=== PATIENT | female | born 2000 | race Caucasian/White ===

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

== ENCOUNTER → 2020-01-06 13:59 | Outpatient (CLI) | payer OTHER, SELFPAY ==
[2020-01-09 09:11] LABS: Neisseria gonorrhoeae, NAA Negative (Negative)
== END ==
PROVIDERS: Visit Provider Nurse Practitioner Obstetrics & Gynecology
DX: Z01.419 Encounter for gynecological examination (general) (routine) without abnormal findings (principal)
CPT/HCPCS: 87491; 87591

== ENCOUNTER → 2020-01-08 13:02 | Outpatient (CLI) | payer OTHER, SELFPAY ==
--- NOTE | 2020-01-08 13:13 | US_ITS ---
PROCEDURE: US TRANSVAGINAL CLINICAL INDICATION: Pelvic Pain COMPARISON: No exams were available for comparison FINDINGS: UTERUS: 6cm x 4cmx 3cm with a combined endometrial thickness of 3.8mm LEFT OVARY: [id number] with a volume of 5.2ml. RIGHT OVARY: [id number] with a volume of 6.2ml. No adnexal mass or abnormal fluid collection. The uterus is retroverted. There are small bilateral ovarian follicles with no dominant cyst IMPRESSION: Retroverted uterus otherwise negative pelvic ultrasound Dictated b Kendall Villegas MD 01/08/2020 16:11 Kendall Villegas MD in [place] 01/08/2020 16:11
== END ==
PROVIDERS: PCP Nurse Practitioner Family; Visit Provider Nurse Practitioner Obstetrics & Gynecology
DX: R10.2 Pelvic and perineal pain (principal)
CPT/HCPCS: 76830

== ENCOUNTER 2021-01-12 14:32 | Emergency (ER) | payer OTHER, SELFPAY ==
[2021-01-12 15:45] VITALS: BP 115/66; PULSE 72; RESP 18; TEMP 37.2; O2SAT 99; BMI 23.7
--- NOTE | 2021-01-12 15:54 | HMH.EDUTC ---
[facility] [place] Clinical Impression: Viral upper respiratory illness Disposition: Home, Self-Care Condition on Discharge: Good Instructions: DI for Viral Upper Respiratory Infection -- Adult, Fluticasone Nasal [address] Additional Instructions: *Monitor Temp, Over the counter Motrin or Tylenol as directed/as needed Tylenol every 4 hours and Motrin every 6 hours (as long as your family doctor has told you that you can take it) for fever or pain. and straight to ER if unable to lower temp less than 101.0 after medication given *Warm salt water gargles may help to soothe the throat *Throat Lozenges *Warm fluids like tea with honey may help to soothe the throat *Sleep elevated *Humidifier/Vaporizer *Flonase 2 sprays in each nostril daily but be aware that it may take 2-3 days before you notice improvement Follow up IMMEDIATELY for new or worsening symptoms or no Noticeable improvement over the next 48-72 hours. 911 for difficulty breathing or swallowing You were tested for today for COVID19 your test result should be back in the next 24-48 hours, you may call to the [facility] to see if your test results are back in the next 48 hours [phone] [facility] hours are 9am-9pm You was given a handout with instructions for Self Quarantine and Self isolation for while you wait on test results and what to do if they are positive If you are positive the Health Dept will be contacting you also Prescriptions: Fluticasone Propionate [Flonase 50mcg nasal spray 16gm] 1 spr NS DAILY #1 ml Transmission Status: Pending to [facility] Referrals: Deann Mayen [Primary Care Provider] - As needed Time of Disposition: 16:14 Medical Decision Making - Camilo Inquiry Pt receiving controlled substance: No Camilo was queried for this patient: No Vital Signs: 01/12/21 15:45 Temperature 99 F Temperature Source Oral Pulse Rate [Left] 72 Respiratory Rate 18 Blood Pressure [Right Arm] 115/66 Blood Pressure Mean [Right Arm] 82 02 Sat by Pulse Oximetry 99 - Lab Data Lab Results 01/12/21 15:51: Strep Scn Rapid Clinic Negative Orders (Tests/Meds): ORDERS Category Date Time Status Covid-19 Nasal PCR ([facility] Routine Lab 01/12/21 15:21 Ordered Strep Screen Confirmation Stat Micro 01/12/21 15:51 Received [facility] [place] - General Stated complaint: covid test Time Seen by Provider: 01/12/21 15:54 Mode of Arrival: Ambulatory Source of Information: Patient Limitations: No Limitations Description of Symptoms (Recalled from Triage Doc. by RN): pt c/o a sore throat and ear aches HEENT Symptoms (Recalled from RN notes): Yes (sore throat and ear aches) Resp Symptoms (Recalled from RN notes): No Skin Symptoms (Recalled from RN notes): No MS Symptoms (Recalled from RN notes): No Functional Status (Recalled from RN notes): na - History of Present Illness Provider Complaint: Patient states that she was recently around a family member that tested positive for COVID States that she has been having pain and pressure like feeling in her ears and sore throat States that she was worried she may have have it and wanted to get tested - Related Data Home Medications Medication Instructions Recorded Confirmed Albuterol Sulfate [Albuterol HFA 1 - 2 puffs IH Q4-6H PRN 01/11/18 01/06/20 Inhaler] Previous Rx's Medication Instructions Recorded Fluticasone Propionate [Flonase 1 spr NS DAILY #1 ml 01/12/21 50mcg nasal spray 16gm] Allergies Allergy/AdvReac Type Severity Reaction Status Date / Time cefuroxime [From CEFTIN] Allergy Unknown Verified 01/12/21 15:57 chlorpheniramine Allergy Unknown Verified 01/12/21 15:57 [From CARDEC (PHENYLEPHRIN-CHLORPHN)] erythromycin base Allergy Unknown Verified 01/12/21 15:57 [ERYTHROMYCIN BASE] guaifenesin [From Robitussin] Allergy Unknown Verified 01/12/21 15:57 phenylephrine Allergy Unknown Verified 01/12/21 15:57 [From CARDEC (PHENYLEPHRIN-CHLORPHN)] doxycyc
[2021-01-12 16:10] LABS: UTC Strep Screen (Rapid) Negative (Negative)
[2021-01-12 16:31] VITALS: BP 115/66; PULSE 72; RESP 18; TEMP 37.2
== END 2021-01-12 16:31 | disposition home or self-care (01) ==
PROVIDERS: Emergency Provider Nurse Practitioner; PCP Nurse Practitioner Family
DX: J06.9 Acute upper respiratory infection, unspecified (principal); K21.9 Gastro-esophageal reflux disease without esophagitis
CPT/HCPCS: 87880; 99203; G0463; U0003

== ENCOUNTER 2021-01-22 12:52 | Emergency (ER) | payer OTHER, SELFPAY ==
[2021-01-22 13:00] VITALS: BP 120/75; PULSE 92; RESP 19; TEMP 36.6; O2SAT 98; BMI 22.8
--- NOTE | 2021-01-22 13:47 | HMH.EDUTC ---
[facility] [place] Disposition Clinical Impression: Vomiting Qualifiers: Vomiting type: unspecified Vomiting Intractability: unspecified Nausea presence: without nausea Qualified Code(s): R11.11 - Vomiting without nausea Disposition: Home, Self-Care Condition on Discharge: Good Instructions: DI for Vomiting -- Adult, Nausea and Vomiting-Adult, Ondansetron Additional Instructions: Drink extra fluids with and between meals. If you have difficulty drinking, try very small amounts of water or suck on ice chips. ? Avoid fruit juices, as these do not replace minerals and can actually increase diarrhea. ? Children and adults can use sports drinks to replenish electrolytes. Younger children and infants should use products formulated for children, like oral rehydration solutions. ? Eat food in small amounts and let your stomach recover. ? Get lots of rest. You may feel tired or weak. ? No greasy or fried foods for the next 24-48 hours BRAT diet Bananas Rice Apples and [place] ? Make sure to drink plenty of liquids ? Return if needed ? Straight to ER if any life threatening symptoms ? Zofran as prescribed ? Follow up with family doctor in the next 48-72 hours if no improvement or any worsening of symptoms Prescriptions: Ondansetron [Zofran 4mg ODT] 4 mg PO TIDP PRN #20 tab PRN Reason: Nausea Transmission Status: Received by [facility] Referrals: Deann Mayen [Primary Care Provider] - As needed Time of Disposition: 14:10 Medical Decision Making - Camilo Inquiry Pt receiving controlled substance: No Camilo was queried for this patient: No Vital Signs: 01/22/21 13:00 01/22/21 14:00 Temperature 97.9 F 97.9 F Temperature Source Oral Pulse Rate 92 H Pulse Rate [Right Brachial] 92 H Respiratory Rate 19 19 Blood Pressure 120/75 Blood Pressure [Right Arm] 120/75 Blood Pressure Mean [Right Arm] 90 Blood Pressure Source [Right Arm] Automatic Cuff Blood Pressure Position [Right Arm] Sitting 02 Sat by Pulse Oximetry 98 Oxygen Delivery Method Room Air Orders (Tests/Meds): ED MEDICATIONS Discontinued Medications Generic Name Dose Route Start Last Admin Trade Name Freq PRN Reason Stop Dose Admin Ondansetron HCl 4 mg 01/22/21 13:47 01/22/21 13:49 Ondansetron 4mg Odt SL 01/22/21 13:48 4 mg ONCE ONE Administration Medical Decision Narrative: Patient denies states she is on her period at this time Recommended testing again for covid and patient declined After medication patient state that nausea is much better was able to keep down sprite without vomiting and no vomiting since arrival again discussed COVID test and patient declined recommended that patient stay in Quarantine at least 4-5 more days due to still having symptoms [facility] [place] HPI - General Stated complaint: vomitting body aches Time Seen by Provider: 01/22/21 13:47 Mode of Arrival: Ambulatory Source of Information: Patient Limitations: No Limitations Description of Symptoms (Recalled from Triage Doc. by RN): PATIENT C/O WEAKNESS, FATIGUE, VOMITING, BODY ACHES, FEVER, AND DECREASED APPETITE X 2 DAYS. RECENTLY EXPOSED TO COVID HEENT Symptoms (Recalled from RN notes): No Resp Symptoms (Recalled from RN notes): No Skin Symptoms (Recalled from RN notes): No MS Symptoms (Recalled from RN notes): No Functional Status (Recalled from RN notes): WNL - History of Present Illness Provider Complaint: Patient state that her boyfriend was dx with COVID about a week or two ago State that she was having symptoms then and was tested and it was negative State that she has been having vomiting and unable to keep anything down and thinks she may have a stomach bug State that she just recently got out of quarnatine - Related Data Home Medications Medication Instructions Recorded Confirmed Albuterol Sulfate [Albuterol HFA 1 - 2 puffs IH Q4-6H PRN 01/11/18 01/06/20 Inhaler] Previous Rx's Medication Instructions Recorded Fluticasone Pro
[2021-01-22 14:00] VITALS: BP 120/75; PULSE 92; RESP 19; TEMP 36.6; O2SAT 98
== END 2021-01-22 14:14 | disposition home or self-care (01) ==
PROVIDERS: Emergency Provider Nurse Practitioner; PCP Nurse Practitioner Family
DX: R11.11 Vomiting without nausea (principal); Z20.822 Contact with and (suspected) exposure to COVID-19; K21.9 Gastro-esophageal reflux disease without esophagitis
CPT/HCPCS: 99202; G0463

== ENCOUNTER 2021-05-01 13:11 | Emergency (ER) | payer OTHER, SELFPAY ==
[2021-05-01 13:45] VITALS: BP 137/88; PULSE 93; RESP 21; TEMP 36.5; O2SAT 98; BMI 23.6
--- NOTE | 2021-05-01 14:34 | HMH.EDUTC ---
[facility] [place] Disposition Clinical Impression: UTI (urinary tract infection) Qualifiers: Urinary tract infection type: site unspecified Hematuria presence: without hematuria Qualified Code(s): N39.0 - Urinary tract infection, site not specified Disposition: Home, Self-Care Condition on Discharge: Good Instructions: Nausea of (Alternative Therapy), Urinary Tract Infection, Hyperemesis Gravidarum, DI for Urinary Tract Infection (UTI), DI for Morning Sickness Additional Instructions: *Increase fluids. Water not Soda or Tea *Start antibiotic immediately and be sure to take as ordered for the FULL length of time although you should start to see improvement over the next 48 hours *Be SURE to follow up anytime for new or worsening symptoms with your family doctor. AND in 48 hours for urine culture results with your family doctor, if you do not have a doctor then you may call back to the [facility] for urine culture results and further treatment. We do recommend that you choose and establish care with a Primary Care Physician. AND follow up with them in 10-14 days to repeat UA to ensure infection is resolved and blood no longer present *Be sure to let your PCP know that we sent urine cultures from the [facility] so they can follow up to ensure that you area the on the correct antibiotic Call your doctor office and make appointment for 48 hours (2 days from today) to follow up and get the results of your urine culture and further treatment Follow up with OBGYN for further treatment and evaluation of vomiting Prescriptions: Amoxicillin/Potassium Clav [Augmentin 500mg tab] 1 tab PO BID 7 Days #14 tab Transmission Status: Sent to [facility] Promethazine HCl [Phenergan 12.5mg tablet] 12.5 mg PO Q6H PRN #10 tab PRN Reason: Vomiting Transmission Status: Sent to [facility] Referrals: Xiomara Fan APRN [Primary Care Provider] - As needed Time of Disposition: 15:02 Medical Decision Making - Camilo Inquiry Pt receiving controlled substance: No Camilo was queried for this patient: No Vital Signs: 05/01/21 13:45 Temperature 97.7 F Temperature Source Oral Pulse Rate [Right Brachial] 93 H Respiratory Rate 21 Blood Pressure [Right Arm] 137/88 Blood Pressure Mean [Right Arm] 104 Blood Pressure Source [Right Arm] Automatic Cuff Blood Pressure Position [Right Arm] Sitting 02 Sat by Pulse Oximetry 98 Oxygen Delivery Method Room Air - Lab Data Lab results reviewed: Yes: I reviewed the patient's lab results. Lab Results 05/01/21 14:05: Urine Color Yellow, Urine Appearance Clear, Urine pH 7.0, Ur Specific [place] 1.025, Urine Protein Negative, Urine Glucose (UA) Negative, Urine Ketones Negative, Urine Blood Trace, Urine Nitrate Negative, Urine Bilirubin Negative, Urine Urobilinogen 1, Ur Leukocyte Esterase Trace Orders (Tests/Meds): ORDERS Category Date Time Status Urine Culture Stat Micro 05/01/21 14:36 Ordered Medical Decision Narrative: Patient states that she is allergic to Cefuroxime but can take Augmentin without reaction or complications Medication discussed with pharmacy to make sure they are safe for use during [facility] [place] HPI - General Stated complaint: 6 weeks , vomiting/cramping Time Seen by Provider: 05/01/21 14:41 Mode of Arrival: Ambulatory Source of Information: Patient, Parent(s) Limitations: No Limitations Description of Symptoms (Recalled from Triage Doc. by RN): PATIENT REPORTS BEING 6 WEEKS WITH VOMITING AND CRAMPING X 1 WEEK. SHE STATES WHEN SHE VOMITS SHE LEAKS FLUID HEENT Symptoms (Recalled from RN notes): No Resp Symptoms (Recalled from RN notes): No Skin Symptoms (Recalled from RN notes): No MS Symptoms (Recalled from RN notes): No Functional Status (Recalled from RN notes): WNL - History of Present Illness Provider Complaint: Patient states that she is having achy like feeling in her lower back, a little burning with urination, N/V and when she vomits sometimes
[2021-05-01 14:35] LABS: Apearance,Urine Clear (Clear); Color,Urine Yellow (Yellow)
[2021-05-01 14:36] LABS: Bilirubin,Urine Negative (Negative); Blood, Urine Trace (Negative); Glucose,Urine (UA) Negative (Negative); Ketones,Urine Negative (Negative); Protein,Urine Negative (Negative); Specific Gravity, Urine 1.025 (1.005-1.030); UTC Leukocyte Esterase,Urine Trace (Negative); UTC Nitrate,Urine Negative (Negative); Urobilinogen,Urine 1 EU/dl (0.2)
[2021-05-01 15:04] VITALS: BP 137/88; PULSE 93; RESP 21; TEMP 36.5; O2SAT 98
== END 2021-05-01 15:07 | disposition home or self-care (01) ==
PROVIDERS: Emergency Provider Nurse Practitioner; PCP Nurse Practitioner
DX: O23.11 Infections of bladder in pregnancy, first trimester (principal); Z3A.01 Less than 8 weeks gestation of pregnancy; K21.9 Gastro-esophageal reflux disease without esophagitis
CPT/HCPCS: 81003; 87086; 99202; G0463

== ENCOUNTER → 2021-05-23 14:10 | Outpatient (CLI) | payer OTHER, SELFPAY | PROVIDERS: Visit Provider Nurse Practitioner Obstetrics & Gynecology | DX: N92.6 Irregular menstruation, unspecified (principal) | CPT/HCPCS: 36415; 84702 ==

== ENCOUNTER → 2021-05-24 12:14 | Outpatient (CLI) | payer OTHER, SELFPAY ==
[2021-05-24 13:08] LABS: Basophils % 0.1 % (0.1-2.0); Eosinophils % 0.4 % (0.1-12.0); Hematocrit 41.6 % (37.0-47.0); Hemoglobin 14.3 g/dL (12.2-16.2); Lymphocytes # 1.1 K/mm3 (0.7-4.5); Lymphocytes % 14.9 % (10-50); Mean Corpuscular HGB Conc 34.3 g/dL (31.8-35.4); Mean Corpuscular Hemoglobin 32.4 pg (27.0-31.2); Mean Corpuscular Volume 94.3 fl (81-99); Mean Platelet Volume 7.8 fl (7.4-10.4); Monocytes # 0.3 K/mm3 (0.1-1.0); Monocytes % 3.5 % (1.7-9.3); Neutrophils # 5.9 K/mm3 (1.8-7.8); Neutrophils % 81.1 % (37.0-80.0); Platelet Count 240 K/mm3 (142-424); Red Blood Count 4.41 M/mm3 (4.20-5.40); Red Cell Distribution Width 11.6 % (11.5-17.5); White Blood Count 7.2 K/mm3 (4.5-13.0)
[2021-05-26 08:52] LABS: HIV Screen 4th Generation wRfx Non Reactive (Non Reactive); HSV 1 IgG, Type Spec <0.91 index (0.00-0.90); HSV 2 IgG, Type Spec <0.91 index (0.00-0.90); Hepatitis B Surface Antigen Negative (Negative); Hepatitis C Antibody <0.1 s/co ratio (0.0-0.9); Rubella Antibodies, IgG 1.02 index (Immune >0.99)
[2021-05-26 10:11] LABS: Rapid Plasma Reagin Ab Titer Non Reactive (NonRea<1:1)
[2021-05-26 22:21] LABS: Neisseria gonorrhoeae, NAA Negative (Negative)
== END ==
PROVIDERS: Visit Provider Nurse Practitioner Obstetrics & Gynecology
DX: Z34.90 Encounter for supervision of normal pregnancy, unspecified, unspecified trimester (principal)
CPT/HCPCS: 36415; 85025; 86592; 86695; 86703; 86762; 86790; 86850; 87340; 87380; 87491; 87591; G0432

== ENCOUNTER → 2021-07-01 13:42 | Outpatient (CLI) | payer OTHER, SELFPAY ==
--- NOTE | 2021-07-01 13:42 | US_ITS ---
FINAL REPORT CLINICAL HISTORY: US OB after 14wks for DATES FINDINGS: There is a single live intrauterine gestation. Presentation is breech. The cervix is closed. Placenta is posterior. Cardiac activity is confirmed at 142 bpm. The fetus is active. The visualized anatomy is within normal limits. MEASUREMENTS: ULTRASOUND AGE: 14 weeks 5 days. GESTATION AGE: 14 weeks 6 days. ESTIMATED WEIGHT: Not provided BPD: 2.8 cm consistent with 15 weeks 1 days. OFD: 3.6 cm consistent with 14 weeks 5 days. HC: 9.3 cm consistent with 14 weeks 2 days. AC: Not provided. FL: 1.6 cm consistent with 14 weeks 5 days. IMPRESSION: Single living IUP with an ultrasound age of 14 weeks 5 days. Reviewed, Interpreted and Dictated by Ezequiel Fajardo MD Transcribed by Elijah Abbott Authenticated by Ezequiel Fajardo MD on 07/01/2021 04:00:[address] [facility]
== END ==
PROVIDERS: PCP Nurse Practitioner; Visit Provider Nurse Practitioner Obstetrics & Gynecology
DX: O26.842 Uterine size-date discrepancy, second trimester (principal); Z3A.14 14 weeks gestation of pregnancy
CPT/HCPCS: 76805

== ENCOUNTER → 2021-08-08 13:43 | Outpatient (CLI) | payer OTHER, SELFPAY ==
--- NOTE | 2021-08-08 13:43 | US_ITS ---
FINAL REPORT CLINICAL HISTORY: 20 weeks gestation; anatomy scan FINDINGS: There is a single live intrauterine gestation. Presentation is variable. The cervix is closed and measures 3.1 cm. Placenta is posterior. Cardiac activity is confirmed at 146 bpm. The fetus is active. Three-vessel cord with satisfactory umbilical cord insertion. Four-chamber heart is noted. brain and ventricles are unremarkable. Chest and diaphragm are unremarkable. ABDOMEN: Both kidneys are unremarkable. Stomach is unremarkable. SPINE: Suboptimally visualized but normal where seen. Both arms and legs noted. AMNIOTIC FLUID: Appropriate amount. MEASUREMENTS: ULTRASOUND AGE: 20 weeks 0 days. GESTATION AGE: 20 weeks 1 days. ESTIMATED WEIGHT: 333 g GROWTH PERCENTILE: 44% BPD: 4.6 cm consistent with 20 weeks 0 days. OFD: 5.8 cm consistent with 20 weeks 0 days. HC: 16.4 cm consistent with 19 weeks 2 days. AC: 15.0 cm consistent with 20 weeks 2 days. FL: 3.3 cm consistent with 20 weeks 2 days. HC/AC: 1.09 CI: 80% FL/BPD: 71% FL/AC: 22% IMPRESSION: Single living IUP with an ultrasound age of 20 weeks 0 days. Reviewed, Interpreted and Dictated by Obed Rico III, MD Transcribed by Elijah Abbott Authenticated by Obed Rico III, MD on 08/09/2021 07:49:[address] [facility]
== END ==
PROVIDERS: PCP Nurse Practitioner; Visit Provider Nurse Practitioner Obstetrics & Gynecology
DX: Z34.90 Encounter for supervision of normal pregnancy, unspecified, unspecified trimester (principal); Z3A.20 20 weeks gestation of pregnancy
CPT/HCPCS: 76811

== ENCOUNTER 2021-09-17 12:39 | Outpatient (CLI) | payer OTHER, SELFPAY ==
[2021-09-17 13:07] VITALS: BMI 27.6
[2021-09-17 13:16] VITALS: BP 122/70; PULSE 81; RESP 18; TEMP 36.8; O2SAT 98; BMI 28.5
[2021-09-17 13:31] LABS: Microscopic, Urine URINE MICROSCOPIC (MICROSCOPIC)
[2021-09-17 13:44] LABS: Appearance,Urine CLEAR (Clear); Bilirubin,Urine Negative (Negative); Blood, Urine TRACE-L (Negative); Color,Urine ORANGE (Yellow); Glucose,Urine (UA) TRACE (Negative); Ketones,Urine TRACE (Negative); Leukocyte Esterase,Urine 1+ (Negative); Nitrate,Urine POSITIVE (Negative); PH,Urine 6.5 (5.0-8.5); Protein,Urine 2+ (Negative); Urobilinogen,Urine >=8.0 EU/dl (0.2)
[2021-09-17 13:59] LABS: Bacteria,Urine 2+ /lpf; RBC,Urine Occasional #/hpf (0-3); Renal Epithelial Cells,Urine Occasional #/lpf (0)
[2021-09-17 14:01] LABS: Amphetamine/Metha Screen,Urine Negative ng/ml (<1000); Barbiturates Screen,Urine Negative ng/ml (<200)
[2021-09-17 14:02] LABS: Benzodiazepines Screen,Urine Negative ng/ml (<200)
[2021-09-17 14:03] LABS: Cannabinoid Screen,Urine Negative ng/ml (<50); Cocaine Screen,Urine Negative ng/ml (<300)
[2021-09-17 14:04] LABS: Methadone Screen,Urine Negative ng/ml (<300); Opiate Screen,Urine Negative ng/ml (<300)
[2021-09-17 14:05] LABS: Phencyclidine Screen,Urine Negative ng/ml (<25)
== END 2021-09-17 15:45 | disposition home or self-care (01) ==
LOC: OBOUT 12:39 → OB 12:40
PROVIDERS: PCP Nurse Practitioner; Visit Provider Nurse Practitioner Obstetrics & Gynecology
DX: Z3A.22 22 weeks gestation of pregnancy (principal)
CPT/HCPCS: 59025; 80305; 81001; 87086; 96365; 96367; G0463; J1956

== ENCOUNTER → 2021-09-26 10:39 | Outpatient (CLI) | payer OTHER, SELFPAY ==
[2021-09-26 11:04] LABS: Glucose,Fasting 89 mg/dl (74-100)
[2021-09-26 12:31] LABS: Glucose 1 Hour 157 mg/dL (74-100)
== END ==
PROVIDERS: Visit Provider Nurse Practitioner Obstetrics & Gynecology
DX: Z34.90 Encounter for supervision of normal pregnancy, unspecified, unspecified trimester (principal)
CPT/HCPCS: 36415; 82951

== ENCOUNTER → 2021-10-03 07:09 | Outpatient (CLI) | payer OTHER, SELFPAY ==
[2021-10-03 09:04] LABS: Glucose 1 Hour 158 mg/dL (74-100); Glucose,Fasting 92 mg/dl (74-100)
[2021-10-03 10:11] LABS: Glucose 2 Hour 119 mg/dL (74-100)
[2021-10-03 11:09] LABS: Glucose 3 Hour 115 mg/dL (74-100)
== END ==
PROVIDERS: Visit Provider Nurse Practitioner Obstetrics & Gynecology
DX: Z34.90 Encounter for supervision of normal pregnancy, unspecified, unspecified trimester (principal)
CPT/HCPCS: 36415; 82951

== ENCOUNTER 2021-11-21 13:03 | Outpatient (CLI) | payer OTHER, SELFPAY ==
[2021-11-21 13:15] VITALS: BMI 30.2
[2021-11-21 13:17] VITALS: BMI 26.2
[2021-11-21 13:20] VITALS: BP 129/86; PULSE 82; RESP 18; TEMP 36.6; O2SAT 100
[2021-11-21 13:35] LABS: Microscopic, Urine URINE MICROSCOPIC (MICROSCOPIC)
[2021-11-21 13:41] LABS: Appearance,Urine CLEAR (Clear); Bilirubin,Urine Negative (Negative); Blood, Urine Negative (Negative); Color,Urine YELLOW (Yellow); Glucose,Urine (UA) Negative (Negative); Ketones,Urine Negative (Negative); Leukocyte Esterase,Urine 3+ (Negative); Nitrate,Urine Negative (Negative); PH,Urine 7.5 (5.0-8.5); Protein,Urine Negative (Negative); Urobilinogen,Urine 0.2 EU/dl (0.2)
[2021-11-21 13:51] LABS: Barbiturates Screen,Urine Negative ng/ml (<200)
[2021-11-21 13:52] LABS: Amphetamine/Metha Screen,Urine Negative ng/ml (<1000); Benzodiazepines Screen,Urine Negative ng/ml (<200)
[2021-11-21 13:53] LABS: Cannabinoid Screen,Urine Negative ng/ml (<50)
[2021-11-21 13:54] LABS: Cocaine Screen,Urine Negative ng/ml (<300); Methadone Screen,Urine Negative ng/ml (<300)
[2021-11-21 13:55] LABS: Opiate Screen,Urine Negative ng/ml (<300); Phencyclidine Screen,Urine Negative ng/ml (<25)
[2021-11-21 14:16] LABS: WBC,Urine 50-100 #/hpf (0-3)
[2021-11-21 14:17] LABS: Bacteria,Urine 4+ /lpf
[2021-11-21 14:18] VITALS: BP 129/86; PULSE 82; RESP 18; TEMP 36.6; O2SAT 100; BMI 30.2
[2021-11-21 14:27] LABS: Basophils % 0.3 % (0.1-2.0); Eosinophils % 0.3 % (0.1-12.0); Hematocrit 31.6 % (37.0-47.0); Hemoglobin 10.5 g/dL (12.2-16.2); Lymphocytes # 1.3 K/mm3 (0.7-4.5); Lymphocytes % 11.5 % (10-50); Mean Corpuscular HGB Conc 33.3 g/dL (31.8-35.4); Mean Corpuscular Hemoglobin 31.4 pg (27.0-31.2); Mean Corpuscular Volume 94.5 fl (81-99); Mean Platelet Volume 8.9 fl (7.4-10.4); Monocytes # 0.4 K/mm3 (0.1-1.0); Monocytes % 3.9 % (1.7-9.3); Neutrophils # 9.6 K/mm3 (1.8-7.8); Neutrophils % 84.1 % (37.0-80.0); Platelet Count 274 K/mm3 (142-424); Red Blood Count 3.35 M/mm3 (4.20-5.40); Red Cell Distribution Width 13.3 % (11.5-17.5); White Blood Count 11.5 K/mm3 (4.8-10.8)
[2021-11-21 14:32] LABS: Chloride 106 mmol/L (98-107); Sodium 136 mmol/L (136-145)
[2021-11-21 14:35] LABS: Blood Urea Nitrogen 3 mg/dl (7-17); Calcium 8.3 mg/dl (8.4-10.2); Carbon Dioxide 24 mmol/L (22.0-30.0); Creatinine Clearance Estimated 170 mL/min (50-200); Estimated Glomerular Filt Rate 126 ml/min (>60); GFR (African American) 153 ML/MIN (>60); Glucose 77 mg/dl (74-100)
--- NOTE | 2021-11-21 14:39 | PC.NURSE ---
Critical K+ 3.0 called from lab. name and verified
== END 2021-11-21 15:25 | disposition home or self-care (01) ==
LOC: OBOUT 13:04 → OB 13:04
PROVIDERS: PCP Nurse Practitioner Family; Visit Provider Nurse Practitioner Obstetrics & Gynecology
DX: O26.893 Other specified pregnancy related conditions, third trimester (principal); Z3A.35 35 weeks gestation of pregnancy; R20.0 Anesthesia of skin; R20.2 Paresthesia of skin
CPT/HCPCS: 59025; 80048; 80305; 81001; 85025; 87086; 96365; G0463

== ENCOUNTER → 2021-11-25 10:02 | Outpatient (CLI) | payer OTHER, SELFPAY ==
[2021-11-25 11:02] LABS: Potassium 3.1 mmoL/L (3.5-5.1)
== END ==
PROVIDERS: PCP Nurse Practitioner Family; Visit Provider Obstetrics & Gynecology
DX: E87.6 Hypokalemia (principal)
CPT/HCPCS: 36415; 84132

== ENCOUNTER 2021-12-02 12:09 | Outpatient (CLI) | payer OTHER, SELFPAY ==
[2021-12-02 12:46] VITALS: BP 123/77; PULSE 89; RESP 16; TEMP 36.7; O2SAT 98; BMI 26.4
[2021-12-02 13:00] LABS: Microscopic, Urine URINE MICROSCOPIC (MICROSCOPIC)
[2021-12-02 13:04] LABS: Appearance,Urine CLEAR (Clear); Bilirubin,Urine Negative (Negative); Blood, Urine Negative (Negative); Color,Urine YELLOW (Yellow); Glucose,Urine (UA) Negative (Negative); Ketones,Urine Negative (Negative); Leukocyte Esterase,Urine 3+ (Negative); Nitrate,Urine Negative (Negative); PH,Urine 7.5 (5.0-8.5); Protein,Urine Negative (Negative); Urobilinogen,Urine 0.2 EU/dl (0.2)
[2021-12-02 13:14] LABS: Amphetamine/Metha Screen,Urine Negative ng/ml (<1000)
[2021-12-02 13:15] LABS: Barbiturates Screen,Urine Negative ng/ml (<200); Benzodiazepines Screen,Urine Negative ng/ml (<200)
[2021-12-02 13:16] LABS: Bacteria,Urine Trace /lpf; Cannabinoid Screen,Urine Negative ng/ml (<50); Squamous Epithelial Cell,Urine Occasional #/hpf (0-5)
[2021-12-02 13:17] LABS: Cocaine Screen,Urine Negative ng/ml (<300); Methadone Screen,Urine Negative ng/ml (<300)
[2021-12-02 13:18] LABS: Opiate Screen,Urine Negative ng/ml (<300)
[2021-12-02 13:19] LABS: Phencyclidine Screen,Urine Negative ng/ml (<25)
== END 2021-12-02 13:27 | disposition home or self-care (01) ==
LOC: OBOUT 12:11 → OB 12:11
PROVIDERS: PCP Nurse Practitioner Family; Visit Provider Obstetrics & Gynecology
DX: O36.831 Maternal care for abnormalities of the fetal heart rate or rhythm, first trimester (principal); Z3A.36 36 weeks gestation of pregnancy
CPT/HCPCS: 59025; 80305; 81001; 86403; 87086; G0463

== ENCOUNTER 2021-12-10 23:15 | Outpatient (CLI) | payer OTHER, SELFPAY ==
[2021-12-10 23:35] VITALS: BP 135/75; PULSE 74; RESP 18; TEMP 36.6; O2SAT 100; BMI 26.8
== END 2021-12-11 00:04 | disposition home or self-care (01) ==
LOC: OBOUT 23:16 → OB 23:16
PROVIDERS: PCP Nurse Practitioner Family; Visit Provider Obstetrics & Gynecology
DX: O26.893 Other specified pregnancy related conditions, third trimester (principal); Z3A.38 38 weeks gestation of pregnancy; R10.11 Right upper quadrant pain
CPT/HCPCS: 59025; G0463

== ENCOUNTER 2021-12-15 09:48 | Outpatient (CLI) | payer OTHER, SELFPAY ==
[2021-12-15 10:00] VITALS: BMI 26.8
[2021-12-15 10:11] LABS: Microscopic, Urine URINE MICROSCOPIC (MICROSCOPIC)
[2021-12-15 10:12] LABS: Appearance,Urine SL CLOUDY (Clear); Bilirubin,Urine Negative (Negative); Blood, Urine Negative (Negative); Color,Urine YELLOW (Yellow); Glucose,Urine (UA) Negative (Negative); Ketones,Urine TRACE (Negative); Leukocyte Esterase,Urine 2+ (Negative); Nitrate,Urine Negative (Negative); Protein,Urine Negative (Negative); Specific Gravity, Urine 1.015 (1.005-1.030); Urobilinogen,Urine 0.2 EU/dl (0.2)
[2021-12-15 10:25] VITALS: BP 129/83; PULSE 98; RESP 16; TEMP 36.7; O2SAT 100; BMI 26.8
[2021-12-15 10:25] LABS: Barbiturates Screen,Urine Negative ng/ml (<200); Benzodiazepines Screen,Urine Negative ng/ml (<200)
[2021-12-15 10:26] LABS: Amphetamine/Metha Screen,Urine Negative ng/ml (<1000)
[2021-12-15 10:27] LABS: Cocaine Screen,Urine Negative ng/ml (<300); Methadone Screen,Urine Negative ng/ml (<300)
[2021-12-15 10:28] LABS: Cannabinoid Screen,Urine Negative ng/ml (<50)
[2021-12-15 10:29] LABS: Opiate Screen,Urine Negative ng/ml (<300); Phencyclidine Screen,Urine Negative ng/ml (<25)
[2021-12-15 10:32] LABS: Bacteria,Urine 2+ /lpf
== END 2021-12-15 13:02 | disposition home or self-care (01) ==
LOC: OBOUT 09:49 → OB 09:51
PROVIDERS: PCP Nurse Practitioner Family; Visit Provider Obstetrics & Gynecology
DX: O60.03 Preterm labor without delivery, third trimester (principal); Z3A.38 38 weeks gestation of pregnancy; R10.2 Pelvic and perineal pain; R11.2 Nausea with vomiting, unspecified
CPT/HCPCS: 59025; 80305; 81001; 87086; 96365; G0463; J2405

== ENCOUNTER 2021-12-17 23:13 | Outpatient (CLI) | payer OTHER, SELFPAY ==
[2021-12-17 23:26] VITALS: BMI 27.2
[2021-12-17 23:32] LABS: Microscopic, Urine URINE MICROSCOPIC (MICROSCOPIC)
[2021-12-17 23:33] VITALS: BP 141/98; PULSE 76; RESP 17; TEMP 36.5; O2SAT 100
[2021-12-17 23:35] LABS: Appearance,Urine CLEAR (Clear); Bilirubin,Urine Negative (Negative); Blood, Urine Negative (Negative); Color,Urine YELLOW (Yellow); Glucose,Urine (UA) Negative (Negative); Ketones,Urine Negative (Negative); Leukocyte Esterase,Urine Negative (Negative); Nitrate,Urine Negative (Negative); Protein,Urine Negative (Negative); Specific Gravity, Urine <= 1.005 (1.005-1.030); Urobilinogen,Urine 0.2 EU/dl (0.2)
[2021-12-17 23:45] LABS: Barbiturates Screen,Urine Negative ng/ml (<200)
[2021-12-17 23:46] LABS: Benzodiazepines Screen,Urine Negative ng/ml (<200)
[2021-12-17 23:47] LABS: Amphetamine/Metha Screen,Urine Negative ng/ml (<1000); Cannabinoid Screen,Urine Negative ng/ml (<50)
[2021-12-17 23:48] LABS: Cocaine Screen,Urine Negative ng/ml (<300); Methadone Screen,Urine Negative ng/ml (<300)
[2021-12-17 23:49] LABS: Opiate Screen,Urine Negative ng/ml (<300)
[2021-12-17 23:50] LABS: Phencyclidine Screen,Urine Negative ng/ml (<25)
[2021-12-18 00:15] VITALS: BP 141/98; PULSE 76; RESP 17; TEMP 36.5; O2SAT 100; BMI 27.2
[2021-12-18 00:45] LABS: Amorphous Sediment,Urine Trace /lpf; WBC,Urine Occasional #/hpf (0-3)
== END 2021-12-18 00:50 | disposition home or self-care (01) ==
LOC: OBOUT 23:14 → OB 23:15
PROVIDERS: PCP Nurse Practitioner Family; Visit Provider Obstetrics & Gynecology
DX: O60.03 Preterm labor without delivery, third trimester (principal); Z3A.39 39 weeks gestation of pregnancy; M54.50 Low back pain, unspecified
CPT/HCPCS: 59025; 80305; 81001; G0463

== ENCOUNTER 2021-12-26 04:49 | Inpatient (IN) | payer OTHER, SELFPAY ==
[2021-12-26 05:38] VITALS: BMI 26.9
[2021-12-26 05:42] VITALS: BP 133/80; PULSE 83; RESP 18; TEMP 36.7; O2SAT 100; BMI 26.9
[2021-12-26 05:59] LABS: Basophils % 0.2 % (0.1-2.0); Eosinophils % 0.1 % (0.1-12.0); Hematocrit 31.1 % (37.0-47.0); Hemoglobin 10.1 g/dL (12.2-16.2); Lymphocytes # 1.7 K/mm3 (0.7-4.5); Mean Corpuscular HGB Conc 32.4 g/dL (31.8-35.4); Mean Corpuscular Hemoglobin 28.5 pg (27.0-31.2); Mean Corpuscular Volume 88.1 fl (81-99); Mean Platelet Volume 8.5 fl (7.4-10.4); Monocytes # 0.5 K/mm3 (0.1-1.0); Monocytes % 5.2 % (1.7-9.3); Neutrophils # 7.9 K/mm3 (1.8-7.8); Neutrophils % 77.5 % (37.0-80.0); Platelet Count 294 K/mm3 (142-424); Red Blood Count 3.53 M/mm3 (4.20-5.40); Red Cell Distribution Width 14.3 % (11.5-17.5); White Blood Count 10.2 K/mm3 (4.8-10.8)
[2021-12-26 06:00] LABS: Coronavirus 19, PCR Not Detected (NotDetected); Influenza A, PCR Not Detected (NotDetected); Influenza B, PCR Not Detected (NotDetected)
[2021-12-26 06:00] LABS: Microscopic, Urine URINE MICROSCOPIC (MICROSCOPIC)
[2021-12-26 06:05] LABS: Appearance,Urine CLEAR (Clear); Bilirubin,Urine Negative (Negative); Blood, Urine Negative (Negative); Color,Urine YELLOW (Yellow); Glucose,Urine (UA) Negative (Negative); Ketones,Urine Negative (Negative); Leukocyte Esterase,Urine 1+ (Negative); Nitrate,Urine Negative (Negative); Protein,Urine Negative (Negative); Urobilinogen,Urine 0.2 EU/dl (0.2)
[2021-12-26 06:18] LABS: Bacteria,Urine 1+ /lpf; WBC,Urine Occasional #/hpf (0-3)
[2021-12-26 06:22] LABS: Benzodiazepines Screen,Urine Negative ng/ml (<200)
[2021-12-26 06:23] LABS: Amphetamine/Metha Screen,Urine Negative ng/ml (<1000); Barbiturates Screen,Urine Negative ng/ml (<200)
[2021-12-26 06:24] LABS: Cannabinoid Screen,Urine Negative ng/ml (<50); Cocaine Screen,Urine Negative ng/ml (<300)
[2021-12-26 06:25] LABS: Methadone Screen,Urine Negative ng/ml (<300)
[2021-12-26 06:26] LABS: Opiate Screen,Urine Negative ng/ml (<300); Phencyclidine Screen,Urine Negative ng/ml (<25)
--- NOTE | 2021-12-26 07:25 | HMH.PHAINT ---
MEDICATION RECONCILIATION COMPLETED ON PATIENT USING EXTERNAL FILL HISTORY FROM PHARMACY. -KEITH CARVALHO, RAMUD
--- NOTE | 2021-12-26 09:30 | HMH.LABNOT ---
Labor Note - Subjective: Date: 12/26/21 Time: 08:30 regular contraction - Objective: NST:: Reactive Contractions:: every 2-3 minutes Cervical Dilation:: 2-3 Effacement:: 90% Station: -1 Membranes: artificially ruptured Comment:: I ruptured her membranes and there was clear fluid. - Fetus: Monitoring?: Yes monitoring type:: External - Assessment: Labor progressing?: Yes Cephalopelvic disproportion?: No Patient Problems: All Active Problems GERD (gastroesophageal reflux disease) (Acute) (Acute) - Plan: Anesthesia for epidural?: No Continue to labor down?: Yes Plan for ?: No Continue to monitor?: Yes Start pushing?: No
--- NOTE | 2021-12-26 10:52 | HMH.OBAPHP ---
OB - H&P: HPI Antepartum - History of Present Illness Chief complaint: Postterm History of present illness: She is a 21-year-old 1 para 0 at 40 and 2 weeks gestational age. She is here for induction of labor at term. - History of Present Criteria for establishing EDC:: LMP confirmed by 1st trimester US care: good care Ultrasounds: normal 1st trimester US, normal mid trimester US Obstetrical complications: none - Labs Blood type: A (+) positive Rubella: immune RPR/VDRL: nonreactive GBS status: negative HBsAG: negative HMH History I have reviewed the patient's past medical history: Yes Medical History: Reports:: Gastroesophageal Reflux Disease(GERD) Denies:: Cancer, Diabetes Mellitus Type 1, Diabetes Mellitus Type 2, MRSA *Have you ever received a pneumonia vaccine?: No *Have you received a flu vaccine this season?: No Laterality Cases: Bilateral: Myringotomy (Ear Tubes), Tonsillectomy, Other Other Surgeries: Yes: No Previous Surgery. No: Amputation: No Fractures: No - *Social History Smoking Status: Never smoker Alcohol Intake: never Alcohol Intake Frequency:: other Substance Use Type: denies use *Occupational Status:: unemployed *Travel in the last 8 weeks: None Family Hx:: No significant family history Para: 0 Review of Systems - Review of Systems Review of systems:: pertinent systems reviewed and negative unless documented below Meds Home Medications Medication Instructions Recorded Confirmed Type Albuterol Sulfate [Albuterol HFA 1 - 2 puffs IH Q4HP PRN 01/11/18 12/26/21 History Inhaler] Pantoprazole Sodium [Protonix 40mg 40 mg PO DAILY 12/26/21 12/26/21 History tablet] Allergies Allergy/AdvReac Type Severity Reaction Status Date / Time cefuroxime [From CEFTIN] Allergy Unknown Verified 12/20/21 09:37 chlorpheniramine Allergy Unknown Verified 12/20/21 09:37 [From CARDEC (PHENYLEPHRIN-CHLORPHN)] erythromycin base Allergy Unknown Verified 12/20/21 09:37 [ERYTHROMYCIN BASE] guaifenesin [From Robitussin] Allergy Unknown Verified 12/20/21 09:37 phenylephrine Allergy Unknown Verified 12/20/21 09:37 [From CARDEC (PHENYLEPHRIN-CHLORPHN)] doxycycline Allergy Verified 12/20/21 09:37 OB - H&P: Exam - Physical Exam Vital signs: Temp Pulse Resp BP Pulse Ox 98.1 F 83 18 133/80 100 12/26/21 05:42 12/26/21 05:42 12/26/21 05:42 12/26/21 05:42 12/26/21 05:42 - Constitutional no acute distress - Routine HEENT Exam Head: Present: normocephalic Eye: Present: EOMI, PERRL ENT: Present: mucous membranes moist - Routine Neck Exam Present: supple, full ROM - Routine Respiratory Exam Absent: accessory muscle use (good air entry bilaterally), respiratory distress, wheezes, crackles - Routine Cardiovascular Exam Present: RRR. Absent: murmur - Routine Abdominal Exam Present: soft, normoactive bowel sounds. Absent: tenderness, distended, guarding - Routine Rectal Exam Patient deferred: visual exam, digital exam - Routine Exam Patient deferred: external exam, groin exam, perineal exam - Routine Extremities Exam Present: full ROM. Absent: cyanosis, edema - Routine Skin Exam Present: intact. Absent: cyanosis - Routine Neurological Exam Present: alert, oriented X3 - Routine Psychiatric Exam Present: normal affect OB - Results - Labs Labs: Short CBC 12/26/21 Range/Units 05:45 WBC 10.2 (4.8-10.8) K/mm3 Hgb 10.1 L (12.2-16.2) g/dL Hct 31.1 L (37.0-47.0) % Plt Count 294 (142-424) K/mm3 Urine 12/26/21 Range/Units 05:40 Urine Color Yellow (Yellow) Urine Appearance Clear (Clear) Urine pH 7.0 (5.0-8.5) Ur Specific [place] 1.020 (1.005-1.030) Urine Protein Negative (Negative) Urine Glucose (UA) Negative (Negative) OB - A/P Antepartum (1) Normal delivery at term Status: Acute - Additional
--- NOTE | 2021-12-26 11:10 | HMH.ANESCL ---
[facility] Anesthesia Checklist - Structural Data Admitted From: Inpatient Planned Operative Procedure/s: labor epidural Consent for Planned Operative Procedure(s) Verified: Yes - Airway Assessment C-Spine Mobility Assessed: Yes TMJ Mobility Assessed: Yes Dentition: Good Dentition - Neurological Assessment Level of Consciousness: Awake, Alert, Appropriate - Anesthesia Plan Anesthesia Risk discussed: Yes Anesthesia Plan: Verified ASA Class: II Anesthesia Type: Epidural [facility] History I have reviewed the patient's past medical history: Yes Medical History: Reports:: Gastroesophageal Reflux Disease(GERD) Denies:: Cancer, Diabetes Mellitus Type 1, Diabetes Mellitus Type 2, MRSA *Have you ever received a pneumonia vaccine?: No *Have you received a flu vaccine this season?: No Anesthesia experience/problems:: none Laterality Cases: Bilateral: Myringotomy (Ear Tubes), Tonsillectomy, Other Other Surgeries: Yes: No Previous Surgery. No: Amputation: No Fractures: No - *Social History Smoking Status: Never smoker Alcohol Intake: never Alcohol Intake Frequency:: other Substance Use Type: denies use *Occupational Status:: unemployed *Travel in the last 8 weeks: None Family Hx:: No significant family history Para: 0
--- NOTE | 2021-12-26 11:46 | HMH.LABNOT ---
Labor Note - Subjective: Date: 12/26/21 Time: 11:46 regular contraction - Objective: NST:: Reactive Contractions:: every 2-3 minutes Cervical Dilation:: 4 Effacement:: 90% Station: -1 Membranes: artificially ruptured - Fetus: Monitoring?: Yes monitoring type:: External - Assessment: Labor progressing?: Yes Cephalopelvic disproportion?: No Patient Problems: All Active Problems Normal delivery at term (Acute) GERD (gastroesophageal reflux disease) (Acute) (Acute) - Plan: Anesthesia for epidural?: Yes Continue to labor down?: Yes Plan for ?: No Continue to monitor?: Yes Start pushing?: No Comment:: She now has her epidural. She is doing very well. Her cervix is changed to 4 cm. We will expect a vaginal delivery
--- NOTE | 2021-12-26 15:11 | HMH.LABNOT ---
Labor Note - Subjective: Date: 12/26/21 Time: 13:40 regular contraction - Objective: NST:: Reactive Contractions:: every 2-3 minutes Cervical Dilation:: 5 Effacement:: 100% Station: -1 Membranes: artificially ruptured - Fetus: Monitoring?: Yes monitoring type:: External - Assessment: Labor progressing?: Yes Cephalopelvic disproportion?: No Patient Problems: All Active Problems Normal delivery at term (Acute) GERD (gastroesophageal reflux disease) (Acute) (Acute) - Plan: Anesthesia for epidural?: Yes Continue to labor down?: Yes Plan for ?: No Continue to monitor?: Yes Start pushing?: No Comment:: She is doing well. She is progressing well. We will expect a vaginal delivery
--- NOTE | 2021-12-26 16:34 | HMH.LABNOT ---
Labor Note - Subjective: Date: 12/26/21 Time: 16:05 regular contraction - Objective: NST:: Reactive Contractions:: every 2-3 minutes Cervical Dilation:: 7 Effacement:: 100% Station: -1 Membranes: artificially ruptured - Fetus: Monitoring?: Yes monitoring type:: External - Assessment: Labor progressing?: Yes Cephalopelvic disproportion?: No Patient Problems: All Active Problems Normal delivery at term (Acute) GERD (gastroesophageal reflux disease) (Acute) (Acute) - Plan: Anesthesia for epidural?: Yes Continue to labor down?: Yes Plan for ?: No Continue to monitor?: Yes Start pushing?: No Comment:: She continues to do well. We will continue to let the babies had come down. We expect a vaginal delivery.
--- NOTE | 2021-12-26 19:00 | HMH.LABNOT ---
Labor Note - Subjective: Date: 12/26/21 Time: 19:00 regular contraction - Objective: NST:: Reactive Contractions:: every 2-3 minutes Cervical Dilation:: 9-10 Effacement:: 100% Station: +1 Membranes: artificially ruptured - Fetus: Monitoring?: Yes monitoring type:: External - Assessment: Labor progressing?: Yes Cephalopelvic disproportion?: No Patient Problems: All Active Problems Normal delivery at term (Acute) GERD (gastroesophageal reflux disease) (Acute) (Acute) - Plan: Anesthesia for epidural?: Yes Continue to labor down?: Yes Plan for ?: No Continue to monitor?: Yes Start pushing?: No Comment:: She continues to do well. She has progressed well. We wait for the head to come down a little more and then start pushing.
--- NOTE | 2021-12-26 20:53 | HMH.LABNOT ---
Labor Note - Subjective: Date: 12/26/21 Time: 20:53 regular contraction - Objective: NST:: Reactive Contractions:: every 2-3 minutes Cervical Dilation:: 9-10 Effacement:: 100% Station: +1 Membranes: artificially ruptured - Fetus: Monitoring?: Yes monitoring type:: External - Assessment: Labor progressing?: Yes Cephalopelvic disproportion?: No Patient Problems: All Active Problems Normal delivery at term (Acute) GERD (gastroesophageal reflux disease) (Acute) (Acute) - Plan: Anesthesia for epidural?: Yes Continue to labor down?: Yes Plan for ?: No Continue to monitor?: Yes Start pushing?: Yes Comment:: We will go ahead and start pushing and see how she does.
--- NOTE | 2021-12-26 22:10 | P.PCN_ITS ---
- Delivery Note Delivery Date:: 12/26/21 Delivery Time:: 21:54 Anesthesia Type: Epidural Was labor medically induced?: Yes Induction method: per pitocin protocol Gestational age (weeks): 40 delivered prior to 39 weeks?: No Gender: Female at 1 minute: 7 at 5 minutes: 9 LAC or MLE?: LAC Delivery Procedure:: She is a 21-year-old 1 para 0 at 40 and 2 weeks gestational age. She was started on IV oxytocin had her membranes ruptured. Under labor epidural she progressed to full dilation and delivered spontaneously a liveborn female child at 9:54 PM in the evening of December 26, 2021. On deliver the head the anterior shoulder then easily delivered. This was followed by the rest the infant's body atraumatically. It was noted that there was a tight cord around the shoulder. The baby was stimulated and cried spontaneously. The oropharynx and nasopharynx were bulb suction. There was some terminal meconium. We allowed the cord to continue to pulsate for approximately 1 minute since the baby was vigorous. The cord was then doubly clamped and cut and the baby was placed on the mother's abdomen for further care. The nurses assigned Apgars of 7 at 1 minute and 9 at 5 minutes. We then obtained cord blood. She received IV oxytocin using gentle traction on the cord and countertraction on the fundus I was able to easily deliver the placenta intact at 9:58 PM. He had a normal three-vessel cord. She had a second-degree perineal laceration was repaired with 3-0 Vicryl Rapide suture to the superficial tissues and 2-0 Vicryl suture to the deep tissues of the perineum. She has a positive blood, she is rubella immune and was group B streptococcus negative. She plans to breast- feed. Her estimated blood loss was approximately 300 cc. Laceration:: vaginal Placental Delivery Description: Spontaneous
[2021-12-27 04:54] VITALS: BP 149/80; PULSE 104; RESP 18; TEMP 36.7; O2SAT 99
[2021-12-27 06:46] LABS: Hematocrit 25.7 % (37.0-47.0); Hemoglobin 8.7 g/dL (12.2-16.2)
--- NOTE | 2021-12-27 08:24 | HMH.ACPN2 ---
Internal Medicine - PN: Subj *Date: 12/27/21 *Time: 08:24 Interval history: She continues to do well this morning. She is 1 day from a vaginal delivery. She denies any pain. She is bottlefeeding. Her lochia is normal. She does have a slightly low hemoglobin at 8.7 however she is asymptomatic with respect to this. Exam Vital signs and Labs for Last 24 Hours: Temp Pulse Resp BP Pulse Ox 98.1 F 104 H 18 149/80 H 99 12/27/21 04:54 12/27/21 04:54 12/27/21 04:54 12/27/21 04:54 12/27/21 04:54 Laboratory Results - last 24 hr 12/27/21 06:22: Hgb 8.7 L, Hct 25.7 L I & O for Last 24 hours: Intake & Output 12/24/21 12/25/21 12/26/21 12/27/21 11:59 11:59 11:59 11:59 Weight 167 lb Microbiology Reports for the Last 24 Hours: Microbiology 12/26/21 05:40 Urine,Clean Catch Urine Culture - Preliminary NO GROWTH AFTER 24 HOURS - Constitutional no acute distress - *Routine HEENT Exam Head: Present: normocephalic Eye: Present: EOMI, PERRL ENT: Present: mucous membranes moist Assessment and Plan (1) Normal delivery at term Status: Acute Category: Medical Code(s): O80 - Encounter for full-term uncomplicated delivery (2) Anemia, Status: Acute Category: Medical Code(s): O90.81 - Anemia of the puerperium - Assessment and plan all Dx Assessment and Plan for all problems:: She is doing well. We will plan to send her home tomorrow. She is bottlefeeding. Her lochia is normal.
--- NOTE | 2021-12-28 09:34 | HMH.OBDCSM ---
General - General Admission date:: 12/26/21 Discharge date: 12/28/21 HPI - History of Present Illness History of present illness: She is a 21-year-old 1 para 0 at 40 weeks gestational age. She was brought in for induction of labor at term. Hospital Course Hospital Course: She was started on IV oxytocin had her membranes ruptured. She progressed to full dilation and delivered spontaneously a liveborn female child at 9:54 PM on the evening of December 26, 2021. The baby weighed 8 pounds 5 ounces and was 19-1/2 inches long. She had Apgars of 7 at 1 minute and 9 at 5 minutes. She has done well and has remained afebrile throughout her hospitalization. She is eating and drinking and ambulating. She is bottlefeeding. Her lochia is normal. Her floor assembler is Dr. Crow. She has a positive blood, she is rubella immune and was group B streptococcus negative. She is discharged home to follow-up with me in approximately 2 weeks time. She will continue with her vitamins and iron. She was given the usual instructions with respect to limiting her activity, driving and sexual activity. She is slightly anemic and I have encouraged her to take her iron tablets twice daily. Her condition on discharge is stable and improved. Rhogam Administration: Not Indicated Objective Vital signs: Temp Pulse Resp BP Pulse Ox 98.1 F 104 H 18 149/80 H 99 12/27/21 04:54 12/27/21 04:54 12/27/21 04:54 12/27/21 04:54 12/27/21 04:54 no acute distress - *Routine HEENT Exam Head: Present: normocephalic Eye: Present: EOMI, PERRL ENT: Present: mucous membranes moist DS: Diagnosis - Discharge Diagnosis (1) Normal delivery at term Status: Acute (2) Anemia, Status: Acute Discharge Plan - Patient Discharge Instructions ACTIVITY: No heavy lifting DIET: continue same diet Additional Instructions: Nothing in the vagina for 6 weeks No tub baths Drink plenty of fluids Patient Instructions: Depression, Hemorrhage, DI for Labor and Delivery, Vaginal , DI for Pre-eclampsia, [facility] Post Discharge Instructions, Preventing the Spread of Coronavirus Discharge Instructions - Follow up Plan Follow up with: Celso Lua MD [Staff Physician] - Disposition: Home, Self-Care Condition at discharge:: Stable Home Medications: Home Medications Medication Instructions Recorded Confirmed Type Albuterol Sulfate [Albuterol HFA 1 - 2 puffs IH Q4HP PRN 01/11/18 12/26/21 History Inhaler] Pantoprazole Sodium [Protonix 40mg 40 mg PO DAILY 12/26/21 12/26/21 History tablet] Ferrous Sulfate [Ferrous Sulfate 325 mg PO BID #60 tab 12/28/21 Rx 325mg Tablet] Prescriptions/Medication Reconciliation: New Ferrous Sulfate [Ferrous Sulfate 325mg Tablet] 325 mg PO BID #60 tab Continued Albuterol Sulfate [Albuterol HFA Inhaler] 1 - 2 puffs IH Q4HP PRN PRN Reason: Shortness Of Breath Or Wheezing Pantoprazole Sodium [Protonix 40mg tablet] 40 mg PO DAILY - Problem Reconciliation Problems Reviewed?: Yes
== END 2021-12-28 13:10 | disposition home or self-care (01) | DRG 807 ==
PROVIDERS: Admitting Provider Nurse Practitioner Obstetrics & Gynecology; PCP Nurse Practitioner Family; Visit Provider Nurse Practitioner Obstetrics & Gynecology
DX: O69.82X0 Labor and delivery complicated by other cord entanglement, without compression, not applicable or unspecified (principal); Z37.0 Single live birth; O70.1 Second degree perineal laceration during delivery; Z3A.40 40 weeks gestation of pregnancy; O90.81 Anemia of the puerperium; D64.9 Anemia, unspecified
CPT/HCPCS: 59409; 36415; 59025; 80305; 81001; 85014; 85018; 85025; 86850; 87086; 94761; C9803; G0283; J2405; U0003; U0005

== ENCOUNTER 2022-03-08 10:46 | Emergency (ER) | payer OTHER, SELFPAY ==
[2022-03-08 11:20] VITALS: BP 134/70; PULSE 87; RESP 19; TEMP 36.4; O2SAT 98; BMI 22.2
--- NOTE | 2022-03-08 11:23 | EXP.UTC ---
Discharge Plan Disposition Patient Disposition: Home, Self-Care Condition: Good Prescriptions Prescriptions: New amoxicillin 500 mg capsule 500 mg PO Q8 10 Days Qty: 30 0RF fluticasone propionate [Flonase Allergy Relief] 50 mcg/actuation spray,suspension 1 spray intranasal DAILY Qty: 16 0RF Rx Instructions: administer into each nostril No Action medroxyprogesterone [Depo-Provera] 150 mg/mL suspension 150 mg IM [id number] Referrals Follow up/Referrals: Xiomara Fan APRN [Primary Care Provider] - See instructions Activity Restrictions/Add. Instructions Additional Instructions/Restrictions: *Monitor Temp, Over the counter Motrin or Tylenol as directed/as needed Tylenol every 4 hours and Motrin every 6 hours (as long as your family doctor has told you that you can take it) for fever or pain. and straight to ER if unable to lower temp less than 101.0 after medication given *Warm salt water gargles may help to soothe the throat *Throat Lozenges? *Warm fluids like tea with honey may help to soothe the throat? *Sleep elevated *Humidifier/Vaporizer Your throat swab was sent for culture. Those results are typically sent to your primary care. Be sure to follow up in 2-3 days with your family doctor/primary care physician if no improvement so they can review those result and treat if necessary. If you don?t have a primary care doctor, I recommend you get one but in the mean time, you will have to return to a walk in clinic Follow up IMMEDIATELY for new or worsening symptoms or no Noticeable improvement over the next 48-72 hours. 911 for difficulty breathing or swallowing Clinical Impressions Clinical Impression: Otitis media Discharge ED Provider: Arline Flroes [facility] HPI General Stated complaint: LT ear pain, sore throat Mode of Arrival: Ambulatory Source of Information: Patient Limitations: No Limitations Time Seen by Provider: 03/08/22 11:24 Description of Symptoms (Recalled from Triage Doc. by RN): pt comes in with c/o sore throat, left ear pain. symptoms ongoing for 2 days HEENT Symptoms (Recalled from RN notes): Yes Resp Symptoms (Recalled from RN notes): No Skin Symptoms (Recalled from RN notes): No MS Symptoms (Recalled from RN notes): No Functional Status (Recalled from RN notes): n/a History of Present Illness Provider Complaint: Patient states that she has been having pain in her left ear and left side of her throat for the last couple of days States that today her ear was hurting worse and would hurt when she would swallow so she came in to get it checked out Related Data Home Medications Medication Instructions Recorded Confirmed medroxyprogesterone 150 mg/mL 150 mg IM [id number] control 03/08/22 03/08/22 intramuscular suspension (Depo-Provera) Previous Rx's Medication Instructions Recorded amoxicillin 500 mg capsule 500 mg PO Q8 10 days #30 caps 03/08/22 fluticasone propionate 50 1 spray intranasal DAILY #16 grams 03/08/22 mcg/actuation nasal spray,suspension (Flonase Allergy Relief) Allergies Allergy/AdvReac Type Severity Reaction Status Date / Time cefuroxime [From CEFTIN] Allergy Unknown Verified 02/08/22 11:05 chlorpheniramine Allergy Unknown Verified 02/08/22 11:05 [From CARDEC (PHENYLEPHRIN-CHLORPHN)] erythromycin base Allergy Unknown Verified 02/08/22 11:05 [ERYTHROMYCIN BASE] guaifenesin [From Robitussin] Allergy Unknown Verified 02/08/22 11:05 phenylephrine Allergy Unknown Verified 02/08/22 11:05 [From CARDEC (PHENYLEPHRIN-CHLORPHN)] azithromycin Allergy Verified 03/08/22 11:22 doxycycline Allergy Verified 02/08/22 11:05 Worker's Comp Is this a Worker's Comp case?: No PFSH PFSH Social History Smoking Status: Never smoker alcohol intake: never substance use type: denies use current occupational status: unemployed Tr
[2022-03-08 11:25] LABS: UTC Strep Screen (Rapid) Negative (Negative)
[2022-03-08 11:36] VITALS: BP 134/70; PULSE 87; RESP 19; TEMP 36.4
== END 2022-03-08 11:41 | disposition home or self-care (01) ==
PROVIDERS: Emergency Provider Nurse Practitioner; PCP Nurse Practitioner
DX: H66.92 Otitis media, unspecified, left ear (principal); J02.9 Acute pharyngitis, unspecified; Z79.51 Long term (current) use of inhaled steroids; Z79.52 Long term (current) use of systemic steroids; Z79.899 Other long term (current) drug therapy; Z88.0 Allergy status to penicillin; Z88.1 Allergy status to other antibiotic agents; Z88.3 Allergy status to other anti-infective agents; Z88.8 Allergy status to other drugs, medicaments and biological substances
CPT/HCPCS: 87880; 99213; G0463

== ENCOUNTER → 2022-07-31 09:13 | Outpatient (CLI) | payer OTHER, SELFPAY ==
--- NOTE | 2022-07-31 09:17 | US_ITS ---
FINAL REPORT TECHNIQUE: Sonographic images of the right upper quadrant were obtained. CLINICAL HISTORY: RIGHT UPPER QUADRANT PAIN FINDINGS: PANCREAS: Unremarkable. LIVER: Homogeneous. No focal hepatic lesion. No intrahepatic biliary ductal dilatation. GALLBLADDER: No gallstones. No gallbladder wall thickening or pericholecystic fluid. COMMON DUCT: 3 mm. Normal for age. RIGHT KIDNEY: The right kidney measures 10.4 cm. There is no hydronephrosis, mass, or stone. FREE FLUID: None. IMPRESSION: Unremarkable ultrasound of the right upper quadrant. Reviewed, Interpreted and Dictated by Ying Souza MD Transcribed by Kalani Jimenez Authenticated and [facility]
== END ==
PROVIDERS: PCP Nurse Practitioner; Visit Provider Nurse Practitioner
DX: R10.11 Right upper quadrant pain (principal)
CPT/HCPCS: 76705

== ENCOUNTER 2023-07-16 21:35 | Outpatient (CLI) | payer OTHER, SELFPAY | END 2023-07-16 23:59 | LOC: LAB.DROPOF 21:35 | PROVIDERS: PCP Family Medicine; Visit Provider Family Medicine | DX: J02.9 Acute pharyngitis, unspecified (principal) | CPT/HCPCS: 87070 ==

== ENCOUNTER 2024-04-04 17:25 | Emergency (ER) | payer OTHER, SELFPAY ==
[2024-04-04 18:00] VITALS: BP 115/64; PULSE 71; RESP 20; TEMP 36.6; O2SAT 98; BMI 24.8
--- NOTE | 2024-04-04 18:01 | ED_ITS ---
Discharge Plan Disposition Patient Disposition: Home, Self-Care Condition: Good Prescriptions Prescriptions: New amoxicillin 500 mg tablet 500 mg PO TID 10 Days Qty: 30 0RF methylprednisolone 4 mg Tablets,Dose Pack 4 mg PO DIRECTED 6 Days Qty: 21 0RF Rx Instructions: Take 1 pack as directed for 6 days [id number] [Bromfed DM] 2-30-10 mg/5 mL Syrup 5 ml PO Q6H PRN (Reason: Cough) Qty: 240 0RF Referrals Follow up/Referrals: Xiomara Fan APRN [Primary Care Provider] - See instructions Activity Restrictions/Add. Instructions Additional Instructions/Restrictions: Drink plenty of fluids. Take tylenol or ibuprofen for pain or fever. Take the medications as directed. Follow up with your regular doctor. GO TO THE ER FOR ANY WORSENING SYMPTOMS Clinical Impressions Clinical Impression: Pharyngitis Otitis media Qualifiers: Otitis media type: unspecified Laterality: left Qualified Code(s): H66.92 - Otitis media, unspecified, left ear Instructions Patient Instructions: Sore Throat, DI for Pharyngitis/Tonsillopharyngitis -- Adult Print Language Print Language: Maltese Discharge ED Provider: Gary Tao [facility] General Stated complaint: Sore throat,earache Time Seen by Provider: 04/04/24 18:01 Related Data Previous Rx's ?Medication ?Instructions ?Recorded amoxicillin 500 mg tablet 500 mg PO TID 10 days #30 tabs 04/04/24 [id number]-[id number] 5 ml PO Q6H PRN Cough #240 mL 04/04/24 2 mg-30 mg-10 mg/5 mL oral syrup (Bromfed DM) methylprednisolone 4 mg tablets in 4 mg PO DIRECTED 6 days #21 tabs 04/04/24 a dose pack Allergies Allergy/AdvReac Type Severity Reaction Status Date / Time cefuroxime [From CEFTIN] Allergy Unknown Verified 07/16/23 14:48 chlorpheniramine Allergy Unknown Verified 07/16/23 14:48 [From CARDEC (PHENYLEPHRIN-CHLORPHN)] erythromycin base Allergy Unknown Verified 07/16/23 14:48 [ERYTHROMYCIN BASE] guaifenesin [From Robitussin] Allergy Unknown Verified 07/16/23 14:48 phenylephrine Allergy Unknown Verified 07/16/23 14:48 [From [facility] (PHENYLEPHRIN-CHLORPHN)] azithromycin Allergy Verified 07/16/23 14:48 doxycycline Allergy Verified 07/16/23 14:48 [facility] Disclaimer: The information contained in this section may have been updated after the patient was seen, as this information can be updated by other users. Medical History (Updated 04/04/24 @ 18:38 by Gary Tao APRN) Asthma Normal esophagogastroduodenoscopy (EGD) Otitis media Encounter for gynecological examination (general) (routine) without abnormal findings Contraceptive management GERD (gastroesophageal reflux disease) Surgical History (Updated 04/04/24 @ 18:14 by Albertina Yoder RN) History of tympanostomy tube placement History of tonsillectomy [place] teeth extracted History of placement of ear tubes History of tonsillectomy Family History (Updated 07/16/23 @ 14:50 by Fátima Cha LPN) Mother Cancer Grandfather Diabetes Social History (Updated 07/16/23 @ 14:51 by Fátima Cha LPN) Smoking Status: Never smoker alcohol intake: never substance use type: denies use current occupational status: unemployed Travel in the last 8 weeks: None household members: children housing: apartment ROS Obtained: Yes All systems reviewed & no additional complaints except as documented Constitutional Constitutional: Reports chills and Reports fever(s) Eyes Eyes: Denies eye discharge ENT Ears, Nose, Mouth, and Throat: Reports as per HPI Cardiovascular Cardiovascular: Denies chest pain Respiratory Respiratory: Denies chest congestion and Reports cough Gastrointestinal Gastrointestingal: Reports nausea; Denies abdominal pain, constipation, cramping, diarrhea or vomiting Musculoskeletal Musculoskeletal: Denies arthralgias Integumentary/Breasts Skin/Breast: Denies rash Neurologic Neurologic: Denies paresthesias Physical Exam General General appearance: alert and in no apparent distress Head Head exam: atraumatic, normocephalic and normal inspection Eye Eye exam: Present normal appearance, PERRL and EOMI ENT ENT exam: Present mucous membranes moist and normal external ear exam Expanded ENT Exam TM/Canal exam: Bilateral TM: erythema and bulging Nose exam: Absent sinus tenderness Mouth exam: Present normal external inspection; Absent drooling Teeth exam: Present normal inspection Throat exam: Present tonsillar erythema, tonsillomegaly and tonsillar exudate Neck Neck exam: Present normal inspection, full ROM and trachea midline; Absent tenderness, meningismus or lymphadenopathy Chest Chest inspection: Present normal inspection and symmetric chest wall rise; Absen t tenderness Respiratory Respiratory exam: Present normal lung sounds bilaterally; Absent respiratory distress, wheezes, stridor or accessory muscle use Cardiovascular Cardiovascular exam: Present regular rate and normal rhythm; Absent systolic murmur or diastolic murmur Abdominal Exam Abdominal exam: Present soft and normal bowel sounds; Absent distention, tenderness, guarding, rebound or rigidity Extremities Exam Extremities exam: Present normal inspection and normal capillary refill; Absent calf tenderness Back Exam Back exam: Present normal inspection and full ROM; Absent tenderness, CVA tenderness (R) or CVA tenderness (L) Neurological Exam Neurological exam: Present alert, oriented X3 and CN II-XII intact Psychiatric Psychiatric exam: Present normal affect and normal mood Skin Skin exam: Present warm, dry, intact and normal color Medical Decision Making Medical Records Medical records reviewed: No I reviewed the patient's medical records. Screening: Per USPSTF and CDC recommendations, given the prevalence of disease in our region, it is our hospital?s policy to screen for HIV and viral Hepatitis for all patients aged 18 and over and those with ongoing risk factors. Camilo Inquiry Pt receiving controlled substance: No Lab Data Lab results reviewed: Yes I reviewed the patient's lab results.
[2024-04-04 18:20] LABS: UTC Strep Screen (Rapid) Negative (Negative)
[2024-04-04 18:35] VITALS: BP 115/64; PULSE 71; RESP 20; TEMP 36.6; O2SAT 98
== END 2024-04-04 18:41 | disposition home or self-care (01) ==
PROVIDERS: Emergency Provider Nurse Practitioner Family; PCP Nurse Practitioner
DX: J02.9 Acute pharyngitis, unspecified (principal); H66.92 Otitis media, unspecified, left ear; R50.9 Fever, unspecified; R05.9 Cough, unspecified; R11.0 Nausea
CPT/HCPCS: 87880; 99212; G0381

== ENCOUNTER 2024-05-23 22:33 | Emergency (ER) | payer OTHER, SELFPAY ==
[2024-05-23 22:34] VITALS: BP 122/79; PULSE 92; RESP 18; TEMP 36.8; O2SAT 98; BMI 24.7
--- NOTE | 2024-05-23 23:12 | ED_ITS ---
Discharge Plan Disposition Patient Disposition: Home, Self-Care Prescriptions Prescriptions: No Action amoxicillin 500 mg tablet 500 mg PO TID 10 Days Qty: 30 0RF methylprednisolone 4 mg Tablets,Dose Pack 4 mg PO DIRECTED 6 Days Qty: 21 0RF Rx Instructions: Take 1 pack as directed for 6 days [id number] [Bromfed DM] 2-30-10 mg/5 mL Syrup 5 ml PO Q6H PRN (Reason: Cough) Qty: 240 0RF Referrals Follow up/Referrals: Xiomara Fan APRN [Primary Care Provider] - See instructions Activity Restrictions/Add. Instructions Additional Instructions/Restrictions: Please follow-up with your primary care provider. Please return to the emergency department if you develop any new or worsening symptoms or become concerned for your health. Clinical Impressions Clinical Impression: Flu-like symptoms Instructions Patient Instructions: DI for Urinary Tract Infection (UTI), DI for Urinary Tract Infection in Children Print Language Print Language: Romanian Discharge ED Provider: [place] [facility] HPI General Chief complaint: Urogenital-Female Stated complaint: weak,tired,earache,lower back pain Time Seen by Provider: 05/23/24 23:11 History of Present Illness HPI narrative: 23-year-old female without significant past medical history presents for multiple complaints. She reports that she has had some pain in the anterior neck, pain in her throat, generalized weakness, muscular aching, nausea without vomiting, some pain in her low back. She denies any fever at home, denies any urinary symptoms. Reports normal bowel movements. Denies any trauma. Reports that she just took a test and it was negative within the last couple of days. Reports that she does not have menses because she is on contraceptives. Related Data Previous Rx's ?Medication ?Instructions ?Recorded amoxicillin 500 mg tablet 500 mg PO TID 10 days #30 tabs 04/04/24 ewmrsvreycbjlxt-xgdbkovtxajjruv-UD 5 ml PO Q6H PRN Cough #240 mL 04/04/24 2 mg-30 mg-10 mg/5 mL oral syrup (Bromfed DM) methylprednisolone 4 mg tablets in 4 mg PO DIRECTED 6 days #21 tabs 04/04/24 a dose pack Allergies Allergy/AdvReac Type Severity Reaction Status Date / Time cefuroxime (From CEFTIN) Allergy Unknown Verified 07/16/23 14:48 chlorpheniramine (From Allergy Unknown Verified 07/16/23 14:48 CARDEC (PHENYLEPHRIN-CHLORPHN)) erythromycin base Allergy Unknown Verified 07/16/23 14:48 (ERYTHROMYCIN BASE) guaifenesin (From Robitussin) Allergy Unknown Verified 07/16/23 14:48 phenylephrine (From CARDEC Allergy Unknown Verified 07/16/23 14:48 (PHENYLEPHRIN-CHLORPHN)) azithromycin Allergy Verified 07/16/23 14:48 doxycycline Allergy Verified 07/16/23 14:48 [facility] [place] Disclaimer: The information contained in this section may have been updated after the patient was seen, as this information can be updated by other users. Medical History (Updated 05/24/24 @ 00:39 by [place] MD) Asthma Normal esophagogastroduodenoscopy (EGD) Otitis media Encounter for gynecological examination (general) (routine) without abnormal findings Contraceptive management GERD (gastroesophageal reflux disease) Surgical History (Updated 04/04/24 @ 18:14 by Albertina Yoder RN) History of tympanostomy tube placement History of tonsillectomy [place] teeth extracted History of placement of ear tubes History of tonsillectomy Family History (Updated 07/16/23 @ 14:50 by Fátima Cha LPN) Mother Cancer Grandfather Diabetes Social History (Updated 07/16/23 @ 14:51 by Fátima Cha LPN) Smoking Status: Never smoker alcohol intake: never substance use type: denies use current occupational status: unemployed Travel in the last 8 weeks: None household members: children housing: apartment Other Medical History Have you received the Flu Vaccine for this season: No Have you received the Pneumonia Vaccine: No ROS Obtained: Yes All systems reviewed & no additional complaints except as documented Physical Exam General General appearance: alert and in no apparent distress Head Head exam: atraumatic and normocephalic Eye Eye exam: Present normal appearance, PERRL and EOMI ENT ENT exam: Present normal oropharynx, TM's normal bilaterally and normal external ear exam Neck Neck exam: Present normal inspection, full ROM and lymphadenopathy (Mild bilateral precervical) Chest Chest inspection: Present normal inspection and symmetric chest wall rise; Absent tenderness Respiratory Respiratory exam: Present normal lung sounds bilaterally; Absent respiratory distress Cardiovascular Cardiovascular exam: Present regular rate and normal rhythm Abdominal Exam Abdominal exam: Present soft; Absent distention, tenderness or guarding Extremities Exam Extremities exam: Present normal inspection; Absent edema or joint swelling Back Exam Back exam: Present normal inspection; Absent tenderness Neurological Exam Neurological exam: Present alert and oriented X3; Absent motor sensory deficit Psychiatric Psychiatric exam: Present normal affect and normal mood Skin Skin exam: Present warm, dry and normal color Lymphatic Lymphatic Findings: no adenopathy Medical Decision Making Medical Records Medical records reviewed: Yes I reviewed the patient's medical records. Screening: Per USPSTF and CDC recommendations, given the prevalence of disease in our region, it is our hospital?s policy to screen for HIV and viral Hepatitis for all patients aged 18 and over and those with ongoing risk factors. Camilo Inquiry Pt receiving controlled substance: No Camilo was queried for this patient: No Vital Signs: 05/23/24 22:34 05/24/24 01:21 Temperature 98.2 F 98.2 F Temperature Source Oral Oral Pulse Rate 92 H Pulse Rate [Left Radial] 92 H Respiratory Rate 18 18 Blood Pressure 122/79 Blood Pressure [Right Arm] 122/79 Blood Pressure Mean [Right Arm] 93 Blood Pressure Source Automatic Cuff Blood Pressure Source [Right Arm] Automatic Cuff Blood Pressure Position Sitting Blood Pressure Position [Right Arm] Sitting 02 Sat by Pulse Oximetry 98 Oxygen Delivery Method Room Air Room Air Lab Data Lab results reviewed: Yes I reviewed the patient's lab results. Lab Results 05/23/24 23:30: Urine Color Yellow, Urine Appearance Clear, Urine pH 7.0, Ur Specific [place] 1.015, Urine Protein Negative, Urine Glucose (UA) Negative, Urine Ketones Negative, Urine Blood 1+ A, Urine Nitrate Negative, Urine Bilirubin Negative, Urine Urobilinogen 0.2, Ur Leukocyte Esterase Negative, Urine RBC 5-10, Urine WBC Occasional, Ur Squamous Epith Cells 5-10, Urine Bacteria Trace Orders (Tests/Meds): ORDERS Category Date Time Status UA [Urinalysis and Microscopic] Stat Lab 05/23/24 23:30 Completed Medical Decision Narrative: 23-year-old female without significant past medical history presents for flulike symptoms. History was obtained via interactive discussion with patient. On arrival, patient is [afebrile, hemodynamically stable, satting appropriately, alert, oriented x4, GCS 15], moving all extremities spontaneously. Full physical exam performed and significant for clear lungs bilaterally, clear oropharynx, mild precervical lymphadenopathy, no CVA tenderness bilaterally, no abdominal tenderness. Differential includes but is not limited to flu/viral illness, UTI/pyelo-. Workup initiated including urinalysis. On re-evaluation, patient [remains afebrile, HD stable.] Laboratory workup independently interpreted by me and does not appear consistent with acute urinary tract infection given patient has no urinary symptoms. Patient most likely has a viral syndrome. These findings were communicated with patient she was discharged in stable condition. Procedures Risk/Benefits of Procedure(s) Were Explained: Yes Critical Care Critical Care Time Critical Care Time: No
[2024-05-23 23:50] LABS: Microscopic, Urine URINE MICROSCOPIC (MICROSCOPIC)
[2024-05-23 23:51] LABS: Appearance,Urine CLEAR (Clear); Bilirubin,Urine Negative (Negative); Blood, Urine 1+ (Negative); Color,Urine YELLOW (Yellow); Glucose,Urine (UA) Negative (Negative); Ketones,Urine Negative (Negative); Leukocyte Esterase,Urine Negative (Negative); Nitrate,Urine Negative (Negative); Protein,Urine Negative (Negative); Specific Gravity, Urine 1.015 (1.005-1.030); Urobilinogen,Urine 0.2 EU/dl (0.2)
[2024-05-24 00:03] LABS: Bacteria,Urine Trace /lpf; WBC,Urine Occasional #/hpf (0-3)
[2024-05-24 01:21] VITALS: BP 122/79; PULSE 92; RESP 18; TEMP 36.8; O2SAT 98
== END 2024-05-24 01:22 | disposition home or self-care (01) ==
PROVIDERS: Emergency Provider Emergency Medicine; PCP Nurse Practitioner
DX: R68.89 Other general symptoms and signs (principal); R53.1 Weakness; M54.50 Low back pain, unspecified; R11.2 Nausea with vomiting, unspecified; M79.10 Myalgia, unspecified site; R07.0 Pain in throat; M54.2 Cervicalgia
CPT/HCPCS: 81001; 99283

== ENCOUNTER 2024-07-15 15:57 | Emergency (ER) | payer OTHER, SELFPAY ==
[2024-07-15] VITALS (7 sets, daily range): BP systolic 105–121; BP diastolic 67–76; PULSE 68–82; RESP 18–20; TEMP 36.6–36.9; O2SAT 97–100; BMI 24.7
--- NOTE | 2024-07-15 16:02 | HMH.EDGENADL ---
Discharge Plan Disposition Patient Disposition: Home, Self-Care Prescriptions Prescriptions: No Action No Known Home Medications Referrals Follow up/Referrals: Titus Morillo DO [Staff Physician] - See instructions Xiomara Fan APRN [Primary Care Provider] - See instructions Activity Restrictions/Add. Instructions Additional Instructions/Restrictions: Follow-up with your family doctor as needed for this visit to the emergency department. Call Dr. Morillo, orthopedist, and discuss this for further images and management. Take Tylenol 1000 mg every 6 hours (4 times daily) and ibuprofen 400 mg every 6 hours (4 times daily) as needed with food and water to prevent GI upset and kidney damage. Clinical Impressions Clinical Impression: Fracture of metacarpal Print Language Print Language: Kinyarwanda Discharge ED Provider: Yonis Varma General Adult HPI <RADHA Gama - Last Filed: 07/15/24 16:05> General Chief complaint: Extremity Injury, Upper Stated complaint: AO 07/13/24 fell injury right hand Time Seen by Provider: 07/15/24 16:04 Related Data Home Medications ?Medication ?Instructions ?Recorded ?Confirmed No Known Home Medications 07/15/24 07/15/24 Allergies Allergy/AdvReac Type Severity Reaction Status Date / Time cefuroxime (From CEFTIN) Allergy Unknown Verified 07/16/23 14:48 chlorpheniramine (From Allergy Unknown Verified 07/16/23 14:48 CARDEC (PHENYLEPHRIN-CHLORPHN)) erythromycin base Allergy Unknown Verified 07/16/23 14:48 (ERYTHROMYCIN BASE) guaifenesin (From Robitussin) Allergy Unknown Verified 07/16/23 14:48 phenylephrine (From CARDEC Allergy Unknown Verified 07/16/23 14:48 (PHENYLEPHRIN-CHLORPHN)) azithromycin Allergy Verified 07/16/23 14:48 doxycycline Allergy Verified 07/16/23 14:48 <Yonis Varma MD - Last Filed: 07/15/24 19:02> History of Present Illness HPI narrative: Please note that above description of symptoms, in this electronic medical record under categorization of recalled from ER triage doctor by RN are reflective of an initial nursing assessment, however, is not reflective of my full history and physical exam that was personally taken and clarified. Consequentially, this preceding description of symptoms, which may include the patient's categorized chief complaint in the EMR, do not reflect my personal clinical impression, and the ultimate description of history of present illness and patient stated complaints should be deferred to this section of the note. Unless stated otherwise or congruent with this section of the note, additional signs, symptoms, or incongruence should be interpreted as inaccurate with my clinical impression. [facility] <RADHA Gama - Last Filed: 07/15/24 16:05> [facility] Disclaimer: The information contained in this section may have been updated after the patient was seen, as this information can be updated by other users. Medical History (Updated 07/15/24 @ 17:31 by Yonis Varma MD) Asthma Normal esophagogastroduodenoscopy (EGD) Otitis media Encounter for gynecological examination (general) (routine) without abnormal findings Contraceptive management GERD (gastroesophageal reflux disease) Surgical History (Updated 04/04/24 @ 18:14 by Albertina Yoder RN) History of tympanostomy tube placement History of tonsillectomy [place] teeth extracted History of placement of ear tubes History of tonsillectomy Family History (Updated 07/16/23 @ 14:50 by Fátima Cha LPN) Mother Cancer Grandfather Diabetes Social History (Updated 07/16/23 @ 14:51 by Fátima Cha LPN) Smoking Status: Never smoker alcohol intake: never substance use type: denies use current occupational status: unemployed Travel in the last 8 weeks: None household members: children housing: apartment Have you lived/traveled outside [place] in past 30 days?: No Contact w/someone who lives/traveled outside US past 30 days?: No Exposure to someone with infectious disease in past 14 days?: No Do you have a fever (greater than 100.4 F or 38 C)?: No Have you tested positive for COVID-19: No Exposed to someone with COVID-19 in past 14 days?: No Do you have a sore throat?: No Do you have a cough?: No Do you have any weakness?: No Do you have any diarrhea?: No Are you experiencing any unusual bleeding?: No Do you have any muscle aches/pain?: No Do you have any abdominal pain?: No Are you experiencing loss of taste or smell?: No Other Medical History Have you received the Flu Vaccine for this season: No Have you received the Pneumonia Vaccine: No <RADHA Gama - Last Filed: 07/15/24 16:05> ROS Obtained: Yes Systems reviewed as appropriate & no additional complaints except as documented Physical Exam <RADHA Gama - Last Filed: 07/15/24 16:05> General General appearance: alert and in no apparent distress Head Head exam: atraumatic and normal inspection Eye Eye exam: Present normal appearance, PERRL and EOMI ENT ENT exam: Present normal exam, normal oropharynx and mucous membranes moist Neck Neck exam: Present normal inspection, full ROM and trachea midline; Absent lymphadenopathy Chest Chest inspection: Present normal inspection and symmetric chest wall rise Respiratory Respiratory exam: Present normal lung sounds bilaterally; Absent accessory muscle use Cardiovascular Cardiovascular exam: Present regular rate, normal rhythm, normal heart sounds, +S1 and +S2 Abdominal Exam Abdominal exam: Present soft and normal bowel sounds; Absent tenderness, guarding or rebound Extremities Exam Extremities exam: Present normal inspection and full ROM Neurological Exam Neurological exam: Present alert, oriented X3 and CN II-XII intact Psychiatric Psychiatric exam: Present normal affect and normal mood Skin Skin exam: Present warm, dry and normal color Lymphatic Lymphatic Findings: no adenopathy <Yonis Varma MD - Last Filed: 07/15/24 19:02> Extremities Exam Extremities exam: Present other (Ulysses also has back pain with associated bruising. Primarily at patient's fourth and fifth metacarpal) Medical Decision Making <RADHA Gama - Last Filed: 07/15/24 16:05> Medical Records Screening: Per USPSTF and CDC recommendations, given the prevalence of disease in our region, it is our hospital?s policy to screen for HIV and viral Hepatitis for all patients aged 18 and over and those with ongoing risk factors. Vital Signs: 07/15/24 15:58 07/15/24 16:01 07/15/24 16:15 Temperature 98.4 F Temperature Source Oral Pulse Rate 72 68 Pulse Rate [Left] 73 Respiratory Rate 20 Blood Pressure 121/76 106/70 L Blood Pressure [Left Arm] 121/76 Blood Pressure Mean [Left Arm] 91 02 Sat by Pulse Oximetry 97 100 99 Oxygen Delivery Method Room Air Room Air Room Air 07/15/24 16:30 07/15/24 16:45 07/15/24 17:00 Temperature Temperature Source Pulse Rate 71 82 70 Pulse Rate [Left] Respiratory Rate Blood Pressure 110/67 105/75 L 112/68 Blood Pressure [Left Arm] Blood Pressure Mean [Left Arm] 02 Sat by Pulse Oximetry 98 99 98 Oxygen Delivery Method Room Air Room Air Room Air 07/15/24 17:39 Temperature 98 F Temperature Source Pulse Rate 68 Pulse Rate [Left] Respiratory Rate 18 Blood Pressure 112/68 Blood Pressure [Left Arm] Blood Pressure Mean [Left Arm] 02 Sat by Pulse Oximetry Oxygen Delivery Method Orders (Tests/Meds): ORDERS Category Date Time Status Hand XR right minimum 3 views [XR hand RT min 3V] Stat Exams 07/15/24 16:08 Completed Wrist XR right minimum 3 views [XR wrist RT min 3V] Exams 07/15/24 16:08 Completed Stat Medical Decision Narrative: In summary patient is a [age, sex] who presents to the emergency department for evaluation of [complaint]. Patient is [hemodynamically stable/unstable] upon arrival, [febrile/afebrile]. [Unremarkable physical exam, nonfocal exam versus focal remarkable exam]. Differential diagnosis includes [DDx]. Initial workup will be conducted with [hematologic labs, imaging, respiratory swab, describe workup]. Initial interventions include [crystalloid bolus, medications, p.o. challenge, etc.] initial workup reviewed by me [hematologic labs are remarkable for... Imaging remarkable for... Urinalysis remarkable for]. Upon repeat evaluation [patient had acceptable resolution of symptoms, had persistent pain for which additional interventions were conducted (describe interventions), tolerated p.o., was ambulatory, etc.]. Given this [patient is appropriate for discharge at this time and will be discharged with a prescription for... The case was discussed with hospital medicine regarding management and they will admit the patient their service for continued evaluation at this time... Etc.] Places where you can increase complexity: I informally interpreted the patient's chest x-ray or CT read and is remarkable for... Documenting what the residential monitor shows with rate and rhythm Consideration of test but deferring. Ex: I considered chest x-ray on this patient however given that they have no oxygen requirement and are clear to auscultation all lung guerra will be deferred. Social determinants of health: Given that patient is undomiciled increases complexity. Given that patient has polysubstance abuse compounds all aspects of care <Yonis Varma MD - Last Filed: 07/15/24 19:02> Medical Records Medical records reviewed: Yes I reviewed the patient's medical records. Camilo Inquiry Pt receiving controlled substance: No Camilo was queried for this patient: No Vital Signs: 07/15/24 15:58 07/15/24 16:01 07/15/24 16:15 Temperature 98.4 F Temperature Source Oral Pulse Rate 72 68 Pulse Rate [Left] 73 Respiratory Rate 20 Blood Pressure 121/76 106/70 L Blood Pressure [Left Arm] 121/76 Blood Pressure Mean [Left Arm] 91 02 Sat by Pulse Oximetry 97 100 99 Oxygen Delivery Method Room Air Room Air Room Air 07/15/24 16:30 07/15/24 16:45 07/15/24 17:00 Temperature Temperature Source Pulse Rate 71 82 70 Pulse Rate [Left] Respiratory Rate Blood Pressure 110/67 105/75 L 112/68 Blood Pressure [Left Arm] Blood Pressure Mean [Left Arm] 02 Sat by Pulse Oximetry 98 99 98 Oxygen Delivery Method Room Air Room Air Room Air 07/15/24 17:39 Temperature 98 F Temperature Source Pulse Rate 68 Pulse Rate [Left] Respiratory Rate 18 Blood Pressure 112/68 Blood Pressure [Left Arm] Blood Pressure Mean [Left Arm] 02 Sat by Pulse Oximetry Oxygen Delivery Method Orders (Tests/Meds): ORDERS Category Date Time Status Hand XR right minimum 3 views [XR hand RT min 3V] Stat Exams 07/15/24 16:08 Completed Wrist XR right minimum 3 views [XR wrist RT min 3V] Exams 07/15/24 16:08 Completed Stat Medical Decision Narrative: 23-year-old female presenting with right hand injury. States that a couple days ago, she was walking up the stairs, tripped, fell, hyperflexed her wrist and her hand. [place] a popping sensation in base of her right little finger. Has been taking Tylenol and Motrin and icing, nothing is made it better. States that with extension of the finger has significant pain. Because of this, came in for further evaluation. History was obtained via conversation with patient. On arrival, patient hemodynamically stable, alert, oriented x4, appropriate, GCS 15, moving all extremities spontaneously, pupils equal and reactive to light. Full physical exam performed and significant for significant amount of swelling at the base of her right little finger and what appears to be a deformity distal right fifth metacarpal. Neurovascularly intact. Able to extend the finger, but with significant pain. Flexion without issue. Differential includes fracture, sprain, strain dislocation,, among others. Patient was given ice pack for symptomatic management and correction of underlying abnormalities. Workup independently interpreted and significant for minimally displaced fracture of neck of fifth metacarpal. No wrist involvement. See radiology read for full review of final results. Patient was splinted in ulnar gutter splint with orthopedic glass. Postprocedure neurovascular status completely intact and normal. On reevaluation, patient resting comfortably. I contacted orthopedics and shared images. Not impressed by images, no obvious fracture. I feel patient still appropriate for outpatient follow-up and reimaging. Given patient presentation, workup, history, this most likely represents right fifth metacarpal fracture, versus severe sprain right hand. Because patient at baseline without signs or symptoms of clinical decompensation, deemed appropriate for discharge. Results were relayed to patient who voiced understanding and were agreeable to outpatient management and follow up. I discussed my clinical impression with patient and answered all questions. At this time, the evidence for any other entities in the differential is insufficient to warrant any further testing or ED observation. This was explained as well. Advisory was given that persistent or worsening symptoms require further evaluation. I confirmed the understanding of this discussion. Quarantine Officer disclaimer Much of this encounter note is an electronic manual lathe machinist spoken language to printed text. Electronic manual lathe machinist of the spoken language may permit errors. Although I have reviewed the note, some errors may still exist. Critical Care <Yonis Varma MD - Last Filed: 07/15/24 19:02> Critical Care Time Critical Care Time: No
--- NOTE | 2024-07-15 16:08 | XR_ITS ---
FINAL REPORT CLINICAL HISTORY: dorsal R carpal pain, hyperflexion COMPARISON: None FINDINGS: RIGHT WRIST THREE VIEW FINDINGS: Three views show no evidence of an acute, displaced fracture or dislocation of the visualized bony architecture. The joint spaces appear normal. IMPRESSION: Unremarkable exam. Reviewed, Interpreted and Dictated by Polo Braga MD Transcribed by Lynn Del Cid Authenticated and [facility]
--- NOTE | 2024-07-15 16:08 | XR_ITS ---
FINAL REPORT CLINICAL HISTORY: dorsal R 4th and 5th metacarpal pain, hyperflexion COMPARISON: None FINDINGS: RIGHT HAND Three views demonstrate no acute fracture or dislocation. The visualized joint spaces are normally aligned. The soft tissues are unremarkable. IMPRESSION: No acute bony abnormality. Reviewed, Interpreted and Dictated by Polo Braga MD Transcribed by Lynn Del Cid Authenticated and [facility]
--- NOTE | 2024-07-15 16:17 | PC.NURSE ---
portable xray at
--- NOTE | 2024-07-15 17:30 | PC.NURSE ---
ASAD AT SPLINTING PT HAND
== END 2024-07-15 17:41 | disposition home or self-care (01) ==
PROVIDERS: Emergency Provider Emergency Medicine; PCP Nurse Practitioner
DX: S62.306A Unspecified fracture of fifth metacarpal bone, right hand, initial encounter for closed fracture (principal); M79.641 Pain in right hand; Z59.819 Housing instability, housed unspecified; W19.XXXA Unspecified fall, initial encounter; Y93.9 Activity, unspecified
CPT/HCPCS: 29125; 73110; 73130; 99283

== ENCOUNTER 2024-10-01 08:43 | Outpatient (CLI) | payer OTHER, SELFPAY | END 2024-10-01 23:59 | disposition home or self-care (01) | LOC: LAB.DROPOF 10-03 08:43 | PROVIDERS: PCP Nurse Practitioner; Visit Provider Nurse Practitioner | DX: R35.0 Frequency of micturition (principal); N39.0 Urinary tract infection, site not specified; B96.1 Klebsiella pneumoniae [K. pneumoniae] as the cause of diseases classified elsewhere | CPT/HCPCS: 87086; 87088; 87186 ==

== ENCOUNTER 2024-10-02 14:00 | Outpatient (CLI) | payer OTHER, SELFPAY ==
[2024-10-02 14:23] LABS: Basophils % 0.2 % (0.1-2.0); Eosinophils % 0.2 % (0.1-12.0); Hematocrit 43.3 % (37.0-47.0); Hemoglobin 14.2 g/dL (12.2-16.2); Lymphocytes # 1.3 K/mm3 (0.7-4.5); Lymphocytes % 23.8 % (10-50); Mean Corpuscular HGB Conc 32.8 g/dL (31.8-35.4); Mean Corpuscular Hemoglobin 30.9 pg (27.0-31.2); Mean Corpuscular Volume 94.3 fl (81-99); Mean Platelet Volume 9.5 fl (7.4-10.4); Monocytes # 0.4 K/mm3 (0.1-1.0); Monocytes % 6.5 % (1.7-9.3); Neutrophils # 3.8 K/mm3 (1.8-7.8); Neutrophils % 69.1 % (37.0-80.0); Nucleated Red Blood Cells # 0 10^3/uL; Nucleated Red Blood Cells % 0 %; Platelet Count 234 K/mm3 (142-424); Red Blood Count 4.59 M/mm3 (4.20-5.40); Red Cell Distribution Width 11.6 % (11.5-17.5); Red Cell Distribution Width-SD 39.8 fL; White Blood Count 5.6 K/mm3 (4.8-10.8)
[2024-10-02 15:09] LABS: Albumin Level 4.3 g/dl (3.5-5.0); Chloride 108 mmol/L (98-107); Potassium 3.9 mmoL/L (3.5-5.1); Sodium 138 mmol/L (136-145)
[2024-10-02 15:11] LABS: Blood Urea Nitrogen 6 mg/dl (7-17); Estimated Glomerular Filt Rate 88 ml/min (>60); GFR (African American) 107 ML/MIN (>60)
[2024-10-02 15:12] LABS: Alanine Aminotransferase 14 U/L (12-78); Albumin/Globulin Ratio 1.8 (1.1-1.8); Alkaline Phosphatase 90 U/L (38-126); Anion Gap 8.9 mEq/L (5-15); Aspartate Amino Transferase 17 U/L (14-36); Bilirubin,Total 0.2 mg/dl (0.2-1.3); Carbon Dioxide 25 mmol/L (22.0-30.0); Globulin 2.4 g/dL (1.3-3.2); Glucose 88 mg/dl (74-100); Total Protein,Serum 6.7 g/dl (6.3-8.2)
[2024-10-02 15:28] LABS: Free T4 (Free Thyroxine) 1.23 ng/dl (0.78-2.19)
[2024-10-02 15:42] LABS: Thyroid Stimulating Hormone 1.75 uIU/mL (0.465-4.68)
[2024-10-03 17:10] LABS: Antinuclear Antibodies, IFA Positive (.); Thyroglobulin Level 1.1 IU/mL (0.0-0.9)
[2024-10-08 21:36] LABS: F026-IgE Pork < 0.10 kU/L (Class 0); F027-IgE Beef < 0.10 kU/L (Class 0); F088-IgE Lamb < 0.10 kU/L (Class 0); Immunoglobulin E, Total 360 IU/mL (6-495); O215-IgE Alpha-Gal < 0.10 kU/L (Class 0)
[2024-10-15 09:38] LABS: Immunoglobulin E, Total 360
== END 2024-10-02 23:59 | disposition home or self-care (01) ==
LOC: LAB 14:01
PROVIDERS: PCP Nurse Practitioner; Visit Provider Nurse Practitioner
DX: J30.89 Other allergic rhinitis (principal); L50.9 Urticaria, unspecified
CPT/HCPCS: 36415; 80053; 82785; 83520; 84439; 84443; 85025; 86003; 86008; 86038; 86352; 86800

== ENCOUNTER 2024-11-11 13:08 | Outpatient (CLI) | payer OTHER, SELFPAY ==
--- OUTSIDE RECORDS SUMMARY | 2024-11-11 13:25 | XMS_ITS | Continuity of Care Document ---
Author Organization [employer] [facility] Address [address] [place] [address] Care Team Providers Care Consulting Technical Manager Name Role Phone XIOMARA FAN Primary Care Provider Unavailabl e Assessment No assessment recorded. Plan of Treatment Reminders Order Date Submit Date Provider Last Modified By Organization Details Last Modified Time Details Appointments None record ed. Lab None record ed. Referral None record ed. Procedures None record ed. Surgeries None record ed. Imaging None record ed. Medication Orders None record ed. Patient TargetsNo targets recorded. Patient InstructionsNo instructions recorded. Reason for Referral None Reported. Problems Name Problem SNOMED Code Status Onset Date Resolution Date Notes Provider Name and Address Organization Details Recorded Time Acute sinusiti s [id number] Active 2023 RITU CALDWELL-BC [address] [place] [address], [phone] , [employer] 4 14:41:13 Dysuria 33953938 Active 2023 Problem Code: R30.0; Problem Code Type: ICD-10; Almaz johnson, [employer]. 4 14:10:39 Fever 882764538 Active 2023 Problem Code: R50.81; Problem Code Type: ICD-10; Almaz johnson, [employer]. 4 16:54:07 Influenz a caused by Influenz a A virus 847901099 Active 2024 Hanh Ty NP [address] [place], [address] , [employer]. 5 14:33:34 Nausea 256719445 Active 2024 Problem Code: R11.0; Problem Code Type: ICD-10; Hanh Ty, [employer] [address] [place] [address], [phone] , [employer] 5 14:33:38 Infectio us enteriti s of intestin e 08544067 Completed 201605/20/2017 Problem Code: A09; Problem Code Type: ICD-10; Not Available [facility] 2 20:51:26 Candidia sis of vulva 7666460 Completed 202004/12/2021 Not Available [facility] 2 20:51:26 Candidia sis of vulva 2976674 Completed 201911/18/2020 Not Available [facility] 2 20:51:27 Vegan's anemia 157123876 Active 2020 Problem Code: D51.3; Problem Code Type: ICD-10; Not Available [facility] 2 20:51:27 Vitamin D deficien cy 76894466 Active 2020 Problem Code: E55.9; Problem Code Type: ICD-10; Not Available [facility] 2 20:51:27 Generali zed anxiety disorder 47210783 Active 2017 Problem Code: F41.1; Problem Code Type: ICD-10; Not Available [facility] 2 20:51:27 Migraine without aura 45153632 Active 2020 Problem Code: G43.009; Problem Code Type: ICD-10; Not Available [facility] 2 20:51:27 Bilatera l earache 055035417 Completed 201606/28/2016 Not Available [facility] 2 20:51:27 Otalgia of left ear Completed 201812/05/2019 EDMUND johnson [employer] 2 15:29:27 Otalgia of left ear Completed 201805/09/2022 EDMUND johnson [employer] 2 15:29:27 Otalgia of left ear Completed 201610/04/2016 EDMUND johnson, [employer] 2 15:29:27 Acute pharyngi tis 770170071 Completed 201608/13/2016 Problem Code: J02.8; Problem Code Type: ICD-10; EDMUND johnson, [employer] 2 15:29:28 Acute pharyngi tis 050492805 Completed 202107/29/2021 EDMUND johnson, [employer] 2 15:29:28 Acute pharyngi tis 077379044 Completed 201611/19/2016 Problem Code: J02.8; Problem Code Type: ICD-10; EDMUND johnson, [employer] 2 15:29:28 Acute pharyngi tis 896228236 Completed 201603/19/2017 Problem Code: J02.8; Problem Code Type: ICD-10; EDMUND johnson, [employer] 2 15:29:28 Acute pharyngi tis 664434950 Completed 201707/13/2018 Problem Code: J02.8; Problem Code Type: ICD-10; EDMUND johnson, [employer] 2 15:29:28 Acute pharyngi tis 828213821 Completed 202105/09/2022 EDMUND JOHNSON null, [employer] 2 15:29:28 Acute pharyngi tis 984836409 Completed 201912/05/2019 EDMUND JOHNSON null, [employer] 2 15:29:28 Influenz a 3709805 Completed 201708/11/2017 Problem Code: J10.1; Problem Code Type: ICD-10; Not Available [facility] 2 20:51:28 Influenz a with gastroin testinal tract involvem ent 714124767 Completed 202105/09/2022 Problem Code: J10.2; Problem Code Type: ICD-10; EDMUND johnson, [employer] 2 15:29:27 Moderate major depressi on, single episode 58681490 Active 2016 Problem Code: F32.1; Problem Code Type: ICD-10; Not Available [facility] 2 20:51:28 Disorder of upper respirat ory system 702032124 Completed 201805/09/2022 Problem Code: J39.9; Problem Code Type: ICD-10; EDMUND johnson, [employer] 2 15:29:27 Acute gastriti s 89912085 Completed 201704/09/2018 Problem Code: K29.00; Problem Code Type: ICD-10; Not Available [facility] 2 20:51:28 Yamila 4745397 Completed 201604/16/2017 Problem Code: K92.1; Problem Code Type: ICD-10; Not Available [facility] 2 20:51:28 Pain in right knee Completed 201701/18/2018 Problem Code: M25.561; Problem Code Type: ICD-10; Not Available [facility] 2 20:51:29 Knee pain Completed 201708/27/2017 Not Available [facility] 2 20:51:29 Myositis 64276937 Completed 202105/09/2022 Problem Code: M60.9; Problem Code Type: ICD-10; EDMUND johnson, [employer] 2 15:29:27 Urinary tract infectio us disease 88038443 Completed 201805/09/2022 Problem Code: N39.0; Problem Code Type: ICD-10; EDMUND johnson, [employer] 2 15:29:28 Urinary tract infectio us disease 99553972 Completed 201912/05/2019 Problem Code: N39.0; Problem Code Type: ICD-10; EDMUND johnson, [employer] 2 15:29:28 Urinary tract infectio us disease 06165205 Completed 201602/19/2017 Problem Code: N39.0; Problem Code Type: ICD-10; EDMUND johnson, [employer] 2 15:29:28 Urinary tract infectio us disease 78940957 Completed 202004/12/2021 Problem Code: N39.0; Problem Code Type: ICD-10; EDMUND SALAZARNER elizabeth, [employer] 2 15:29:28 Urinary tract infectio us disease 53588633 Completed 201911/18/2020 Problem Code: N39.0; Problem Code Type: ICD-10; EDMUND SALAZARNANI johnson, [employer] 2 15:29:28 Vaginola bial hernia Completed 201805/09/2022 Problem Code: N89.8; Problem Code Type: ICD-10; EDMUND JOHNSON elizabeth, [employer] 2 15:29:27 Dysmenor ronda 339902792 Active 2018 Not Available [facility] 2 20:51:30 Tachycar mark 1641570 Active 2019 Not Available [facility] 2 20:51:30 Spasmodi c torticol lis 58708752 Completed 201709/24/2017 Problem Code: G24.3; Problem Code Type: ICD-10; Not Available [facility] 2 20:51:30 Nausea 728535380 Completed 201604/04/2017 Problem Code: R11.0; Problem Code Type: ICD-10; Hanh Ty NP [address] [place] [address], [phone] , [employer] 5 14:33:38 Vomiting 167233647 Completed 202005/09/2022 EDMUND ELIZABETH johnson, [employer] 2 15:29:28 Generali zed abdomina l pain 524741320 Completed 201608/13/2016 Problem Code: R10.84; Problem Code Type: ICD-10; Not Available [facility] 2 20:51:31 Generali zed abdomina l pain 530677140 Completed 201811/18/2020 Problem Code: R10.84; Problem Code Type: ICD-10; Not Available [facility] 2 20:51:31 Nausea and vomiting 47026224 Completed 201702/22/2018 Problem Code: R11.2; Problem Code Type: ICD-10; EDMUND johnson, [employer] 2 15:29:27 Heartbur n 03563688 Completed 201710/09/2017 Problem Code: R12; Problem Code Type: ICD-10; Not Available [facility] 2 20:51:31 Nausea and vomiting 94152177 Completed 201604/04/2017 Problem Code: R11.2; Problem Code Type: ICD-10; EDMUND johnson, [employer] 2 15:29:27 Generali zed abdomina l pain 289836397 Completed 201602/01/2017 Problem Code: R10.84; Problem Code Type: ICD-10; Not Available [facility] 2 20:51:32 Diarrhea 75099958 Completed 201704/25/2018 Problem Code: R19.7; Problem Code Type: ICD-10; Not Available [facility] 2 20:51:32 Dysuria 72991433 Completed 201805/09/2022 Problem Code: R30.0; Problem Code Type: ICD-10; Almaz johnson, [employer] 4 14:10:39 Dysuria 30845331 Completed 201912/05/2019 Problem Code: R30.0; Problem Code Type: ICD-10; Almaz johnson, [employer] 4 14:10:39 Fever 197302931 Completed 201605/09/2022 Problem Code: R50.81; Problem Code Type: ICD-10; Almaz johnson, [employer] 4 16:54:07 Pyrexia of unknown origin 3826999 Completed 201912/05/2019 Problem Code: R50.9; Problem Code Type: ICD-10; Not Available [facility] 2 20:51:33 Chronic fatigue syndrome 87436478 Completed 201902/11/2021 Problem Code: R53.82; Problem Code Type: ICD-10; Not Available [facility] 2 20:51:33 Finding of general energy 569756443 Completed 202005/09/2022 Problem Code: R53.83; Problem Code Type: ICD-10; EDMUND ELIZABETH elizabeth, [employer] 2 15:29:27 Syncope and collapse 039326995 Completed 201911/18/2020 Problem Code: R55; Problem Code Type: ICD-10; Not Available [facility] 2 20:51:34 Non-supp urative otitis media 671406943 Completed 201612/05/2019 Not Available [facility] 2 20:51:34 Otalgia of left ear Completed 201602/01/2017 EDMUND johnson, [employer] 2 15:29:27 COVID-19 735043675 Completed 202107/29/2021 Problem Code: U07.1; Problem Code Type: ICD-10; Not Available [facility] 2 20:51:34 General examinat ion of patient Completed 202002/11/2021 Not Available [facility] 2 20:51:35 Syphilis test finding 247655431 Completed 202002/11/2021 Problem Code: Z11.3; Problem Code Type: ICD-10; Not Available [facility] 2 20:51:35 Choleste rol screenin g Completed 201905/09/2022 EDMUND johnson, [employer] 2 15:29:27 Acute pharyngi tis 835899914 Completed 201704/09/2018 Problem Code: J02.8; Problem Code Type: ICD-10; EDMUND johnson, [employer] 2 15:29:28 Uses depot contrace ption 436122235 Completed 201811/18/2020 Not Available [facility] 2 20:51:36 Natural contrace ption educatio n Completed 201911/18/2020 Problem Code: Z31.61; Problem Code Type: ICD-10; Not Available [facility] 2 20:51:36 Body mass index 20-24 - normal 691040685 Active 2019 Not Available [facility] 2 20:51:37 Finding of body mass index 141298960 Completed 201911/18/2020 Problem Code: Z68.1; Problem Code Type: ICD-10; Not Available [facility] 2 20:51:37 Body mass index 20-24 - normal 157301100 Completed 201911/18/2020 Not Available [facility] 2 20:51:37 Body mass index 20-24 - normal 494928015 Completed 201911/18/2020 Not Available [facility] 2 20:51:38 Body mass index 20-24 - normal 830608869 Completed 202011/18/2020 Not Available [facility] 2 20:51:39 High risk heterose xual behavior 64555505026 9101 Completed 201905/09/2022 Problem Code: Z72.51; Problem Code Type: ICD-10; EDMUND johnson [employer] 2 15:29:27 Colitis, enteriti s and gastroen teritis presumed infectio us 941709050 Completed 201605/20/2017 Problem Code: 009.1; Problem Code Type: ICD-9; Not Available [facility] 2 20:51:39 Depressi ve disorder 63755186 Active 2016 Problem Code: 311; Problem Code Type: ICD-9; Not Available [facility] 2 20:51:40 Breast lump 07062628 Completed 201612/05/2019 Problem Code: N63; Problem Code Type: ICD-10; Not Available [facility] 2 20:51:40 Otogenic otalgia 35296587 Completed 201606/28/2016 Problem Code: 388.71; Problem Code Type: ICD-9; Not Available [facility] 2 20:51:40 Otogenic otalgia 75558397 Completed 201602/01/2017 Problem Code: 388.71; Problem Code Type: ICD-9; Not Available [facility] 2 20:51:41 Influenz a with respirat ory manifest ation other than pneumoni a Completed 201708/11/2017 Problem Code: 487.1; Problem Code Type: ICD-9; Not Available [facility] 2 20:51:41 Migraine with aura 4804860 Completed 201711/18/2020 Problem Code: 346.00; Problem Code Type: ICD-9; Not Available [facility] 2 20:51:41 Irritabl e bowel syndrome 12893553 Completed 201711/18/2020 Problem Code: 564.1; Problem Code Type: ICD-9; Not Available [facility] 2 20:51:41 Otogenic otalgia 81842517 Completed 201610/04/2016 Problem Code: 388.71; Problem Code Type: ICD-9; Not Available [facility] 2 20:51:42 Hematoch ezia 513028287 Completed 201604/16/2017 Problem Code: 578.1; Problem Code Type: ICD-9; Not Available [facility] 2 20:51:42 Knee pain Completed 201701/18/2018 Problem Code: 719.46; Problem Code Type: ICD-9; Not Available [facility] 2 20:51:43 Nausea and vomiting 11827200 Completed 201606/28/2016 Problem Code: R11.2; Problem Code Type: ICD-10; EDMUND JOHNSON [employer]. 15:29:27 Nausea and vomiting 28697850 Completed 201805/09/2022 Problem Code: R11.2; Problem Code Type: ICD-10; EDMUND SALAZARNER [employer]. 15:29:27 Nausea and vomiting 53163818 Completed 201701/31/2018 Problem Code: R11.2; Problem Code Type: ICD-10; EDMUND JOHNSON [employer]. 15:29:27 Gastroes ophageal reflux disease 610889136 Completed 201711/18/2020 Problem Code: 530.81; Problem Code Type: ICD-9; Not Available [facility] 20:51:44 Nausea and vomiting 70184066 Completed 201712/05/2019 Problem Code: R11.2; Problem Code Type: ICD-10; EDMUND JOHNSON [employer]. 15:29:27 Generali zed anxiety disorder 60492129 Completed 201711/18/2020 Problem Code: 300.02; Problem Code Type: ICD-9; Not Available [facility] 20:51:49 Problem Notes None recorded. Procedures Surgical History Date Name Laterality Status Provider Name and Address Organization Details Recorded Time 02/08 Date of Last Pap Smear completed EDMUND [employer] 2 15:29:43 03/21 tonsillectomy and adenoidectomy completed Not Available [facility] 2 22:56:07 06/14 tympanostomy completed Not Available [facility] 2 22:56:07 esophagogastroduodenoscopy completed [employer] 4 14:08:57 extraction of wisdom tooth completed [employer] 4 14:09:05 Imaging Results None recorded. Procedure Notes None recorded. Medical Equipment None Reported. Allergies Allergen ID Allergen Name Allergen Category Reaction Reaction Severity Criticality Documentation Date Start Date Code Code System Note Provider Name and Address Organization Details Recorded Time 56701 chlorphen iramine / hydrocodo ne / pseudoeph edrine medicatio n Not available Not available Not available 02/07/2022 98098 4 RxNorm [employer] 2 15:23:05 37016 brompheni ramine / pseudoeph edrine medicatio n Not available Not available Not available 02/07/2022 89137 6 RxNorm EDMUND johnson, [employer] 2 15:23:08 71900 Medicinal product containin g tetracycl ine structure and acting as antibacte rial agent (product) medicatio n Not available Not available Not available 02/07/2022 10275 1004 SNOMED EDMUND johnson, [employer] 2 15:23:11 93212 azithromy kunal medicatio n Not available Not available Not available 02/07/2022 41006 RxNorm Not Available [facility] 2 22:57:03 76923 Ceftin medicatio n Not available Not available Not available 02/07/2022 13226 6 RxNorm Not Available [facility] 2 22:57:03 Medications Name Sig Start Date Stop Date Status Note LastModified by Organization Details LastModified Time amoxicillin 500 mg capsule TAKE 1 CAPSULE 3 TIMES EACH DAY FOR 10 DAYS 05/26 completed Not Available Not Available Not Available Miralax 17 gram/dose oral powder 1 capful in 8 oz beverage q day 07/17 completed Not Available Not Available Not Available promethazin e-DM 6.25 mg-15 mg/5 mL oral syrup Take 1 teaspoonf ul by mouth every 6 hours as needed. 07/13 completed Not Available Not Available Not Available clindamycin HCl 300 mg capsule TAKE 1 CAPSULE EVERY 8 HOURS 05/09 completed Not Available Not Available Not Available cetirizine 10 mg tablet TAKE ONE TABLET BY MOUTH EVERY DAY active Not Available Not Available No t Available azithromyci n 250 mg tablet Take 2 tablet(s) by mouth on day 1 then 1 tablet every day for the next 4 days. 07/04 completed Not Available Not Available Not Available tizanidine 4 mg tablet 1 po bid 09/24 completed Not Available Not Available Not Available fluconazole 150 mg tablet TAKE 1 TABLET TODAY THEN TAKE 1 TABLET IN 3 DAYS IF YOU STILL HAVE SYMPTOMS 10/28 completed Not Available Not Available Not Available benzonatate 200 mg capsule Take 1 capsule 3 times a day by oral route. 08/26 completed Not Available Not Available Not Available sumatriptan 100 mg tablet 1 tablet PO for migraine, may repeat in 2 hours if needed. 05/25 completed Not Available Not Available Not Available promethazin e 12.5 mg tablet TAKE 1 TABLET EVERY 6 HOURS NEEDED FOR NAUSEA AND VOMITING 05/09 completed Not Available Not Available Not Available Paxil 20 mg tablet Take 1 tablet(s) by mouth daily 07/19 completed Not Available Not Available Not Available prednisone 20 mg tablet Take 1 tablet 3 times a day by oral route for 3 days. 07/04 completed Not Available Not Available Not Available metronidazo le 500 mg tablet TAKE ONE TABLET BY MOUTH TWICE DAILY FOR SEVEN DAYS 09/22 completed Not Available Not Available Not Available phentermine 37.5 mg tablet TAKE ONE TABLET BY MOUTH EVERY DAY active Not Available Not Available No t Available dextrometho rphan-guaif enesin 10 mg-100 mg/5 mL oral syrup Take 1 teaspoon by mouth q4h prn for cough 07/17 completed Not Available Not Available Not Available ciprofloxac in 500 mg tablet Take 1 Tablet every 12 hours for 3 days 06/12 completed Not Available Not Available Not Available sulfamethox azole 800 mg-trimetho prim 160 mg tablet TAKE ONE TABLET BY MOUTH TWICE DAILY 10/28 completed Not Available Not Available Not Available hydrocortis one acetate 25 mg rectal suppository Insert 1 supposito ry(s) rectally am and pm 07/31 completed Not Available Not Available Not Available meloxicam 7.5 mg tablet 1 po daiy prn 09/25 completed Not Available Not Available Not Available Zofran 4 mg tablet Give 1 tablet every 6 hrs as needed for nausea and/or vomiting 08/31 completed Not Available Not Available Not Available amoxicillin 875 mg tablet Take 1 tablet every 12 hours by oral route. 12/29 completed Not Available Not Available Not Available potassium chloride ER 20 mEq tablet,exte nded release(par t/cryst) TAKE 1 TABLET 1 TIME EACH DAY 05/09 completed Not Available Not Available Not Available pantoprazol e 40 mg tablet,amy yed release TAKE 1 TABLET 1 TIME EACH DAY 05/09 completed Not Available Not Available Not Available oseltamivir 75 mg capsule TAKE 1 CAPSULE 2 TIMES EACH DAY FOR 5 DAYS 05/09 completed Not Available Not Available Not Available ibuprofen 400 mg tablet Give 1 tablet every 6-8 hrs as needed 08/26 completed Not Available Not Available Not Available omeprazole 20 mg capsule,del ayed release one po q hs for the next 14 days then 1 po qd prn 02/08 completed Not Available Not Available Not Available hydroxyzine HCl 25 mg tablet 1 po bid 05/09 completed Not Available Not Available Not Available ranitidine 150 mg capsule Take 1 capsule(s ) by mouth at bedtime 07/17 completed Not Available Not Available Not Available ergocalcife rol (vitamin D2) 1,250 mcg (50,000 unit) capsule 1 tablet PO once weekly x3 months 05/09 completed Not Available Not Available Not Available levofloxaci n 500 mg tablet TAKE 1 TABLET BY MOUTH ONCE DAILY 05/09 completed Not Available Not Available Not Available methylpredn isolone 4 mg tablets in a dose pack TAKE ACCORDING TO PACKAGE INSTRUCTI ONS 05/26 completed Not Available Not Available Not Available rizatriptan 5 mg disintegrat ing tablet place 1 tablet (5 mg) on top of the tongue where it will dissolve, then swallow by transling ual route once, may repeat at 2 hour intervals ;do not exceed 30 mg in 24 hours 08/26 completed Not Available Not Available Not Available Naprosyn 500 mg tablet Take 1 tablet(s) by mouth bid 05/25 completed Not Available Not Available Not Available bromphenira mine-pseudo ephedrine-D M 2 mg-30 mg-10 mg/5 mL oral syrup TAKE 5 ML (1 TEASPOONF UL) EVERY 6 HOURS NEEDED FOR cough 05/26 completed Not Available Not Available Not Available ondansetron 4 mg disintegrat ing tablet DISSOLVE ONE TABLET UNDER TONGUE EVERY 6 TO 8 HOURS NEEDED FOR NAUSEA 08/26 completed Not Available Not Available Not Available fluticasone propionate 50 mcg/actuati on nasal spray,suspe nsion instill 1 SPRAY IN EACH NOSTRIL EVERY DAY 05/09 completed Not Available Not Available Not Available medroxyprog esterone 150 mg/mL intramuscul ar suspension Inject 1 mL every 3 months by intramusc ular route. 08/26 completed Not Available Not Available Not Available dicyclomine 10 mg capsule Take 1 Capsule (by mouth) every 8 hours as needed for pain 09/25 completed Not Available Not Available Not Available loratadine 10 mg tablet Take 1 tablet(s) by mouth daily 03/19 completed Not Available Not Available Not Available amoxicillin 875 mg-potassiu m clavulanate 125 mg tablet TAKE ONE TABLET BY MOUTH EVERY TWELVE HOURS FOR SEVEN DAYS 10/17 completed Not Available Not Available Not Available neomycin-po lymyxin-hyd rocort 3.5 mg-10,000 unit/mL-1 % ear drops,susp 3 drops in both ears tid for 7 days 07/17 completed Not Available Not Available Not Available potassium chloride ER 10 mEq tablet,exte nded release(par t/cryst) TAKE 1 TABLET 3 TIMES EACH DAY 05/09 completed Not Available Not Available Not Available albuterol 1-2 puffs as needed 05/09 completed Not Available Not Available Not Available ProAir HFA 90 mcg/actuati on aerosol inhaler INHALE 1-2 PUFFS EVERY 4 HOURS NEEDED 08/29 completed Not Available Not Available Not Available FeroSul 325 mg (65 mg iron) tablet TAKE 1 TABLET 2 TIMES EACH DAY 05/09 completed Not Available Not Available Not Available Linzess 145 mcg capsule Take 1 capsule(s ) by mouth daily 30 minutes before the first meal of the day. 05/17 completed Not Available Not Available Not Available Ubrelvy 50 mg tablet 05/09 completed Not Available Not Available Not Available Vitals Date Recorded Body height Body mass index (BMI) Body weight Heart rate Oxygen saturation Oxygen saturation in Arterial blood by Pulse oximetry Systolic blood pressure Diastolic blood pressure Provider Name and Address Organization Details Last Updated DateTime 5 166.37 cm 25.2 kg/m2 23655.2 2 g 129 /min 98 % 98 % 120 mm[Hg] 78 mm[Hg] Almaz Kohler [employer], [employer] 5 16:17:02 Social History Question Answer Notes LastModified by Organizat ion Details LastModified Time Tobacco Smoking Status Never Smoker EDMUND johnson [employer], [employer] 05/09/2022 15:30:51 Do You Have An Advance Directive? No [email or web address] Information n ot available 08/30/2023 Is Your Home Air Conditioned? Yes Information not available 10/02/2022 Do You Wear A Helmet When Biking? No [email or web address] Information not available 07/04/2024 Are You Blind Or Do You Have Difficulty Seeing? No [email or web address] Information n ot available 05/09/2022 What Is Your Level Of Caffeine Consumption? Heavy Information not available 10/13/2022 Are You A Caregiver? Yes [email or web address] Information not available 05/09/2022 What Type Of Professor Of Nursing Do You Use? None [email or web address] Information not available 08/30/2023 In The 14 Days Before Symptom Onset, Have You Had Close Contact With A Laboratory-confirm ed COVID-19 While That Case Was Ill? No [email or web address] Information n ot available 05/09/2022 In The 14 Days Before Symptom Onset, Have You Had Close Contact With A Person Who Is Under Investigation For COVID-19 While That Person Was Ill? No [email or web address] Information not available 05/09/2022 Have You Been To An Area Known To Be High Risk For COVID-19? No [email or web address] Information not available 05/09/2022 Are You Deaf Or Do You Have Serious Difficulty Hearing? No [email or web address] Information not available 05/09/2022 What Type Of Diet Are You Following? REGULAR [email or web address] Information n ot available 07/04/2024 Have There Been Any Changes To Your Family Or Social Situation? 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 No [email or web address] Information not available 08/30/2023 What Was The Date Of Your Most Recent Tobacco Screening? 10/28/2024 Information not available 10/28/2024 Have You Ever Been Counseled For Unhealthy Alcohol Use? No Information not available 10/13/2022 What Is Your Relationship Status? Single [email or web address] Information not available 05/09/2022 Do You Use Your Seat Belt Or Car Seat Routinely? Yes Information not available 10/02/2022 Are You Sexually Active? No [email or web address] Information not available 07/04/2024 Do You Have Smoke And Carbon Monoxide Detectors In Your Home? Yes Information not available 10/02/2022 Are You Passively Exposed To Smoke? No Information no t available 10/02/2022 Are There Any Smokers In Your House? No Information not available 10/02/2022 Do You Participate In Social Media? Yes [email or web address] Information not available 07/04/2024 Do You Use Sunscreen Routinely? No Information not available 10/02/2022 Have You Recently Traveled Abroad? No [email or web address] Information not available 05/09/2022 Do You Have Difficulty Walking Or Climbing Stairs? No [email or web address] Information not available 05/09/2022 Are You Currently In School? No Information not available 10/02/2022 Do You Have Any Dietary Restrictions? No [email or web address] Information not available 07/04/2024 Sex: Female Functional Status Question Answer Note LastModified by Organizat ion Details LastModified Time Do you use any illicit or recreational drugs? No Information not available 10/13/2022 Do you or have you ever used any other forms of tobacco or nicotine? No [email or web address] Information not available 05/01/2023 What is your level of alcohol consumption? None [email or web address] Information not available 08/30/2023 Are you currently employed? No [email or web address] Information not available 08/30/2023 Do you have transportation difficulties? No [email or web address] Information not available 05/09/2022 Are you able to walk? YESWOREST [email or web address] Information not available 05/09/2022 Do you have difficulty doing errands alone? No [email or web address] Information not available 05/09/2022 Are you able to care for yourself? Yes [email or web address] Information not available 05/09/2022 Do you have difficulty dressing or bathing? No [email or web address] Information not available 05/09/2022 What is your exercise level? Moderate [email or web address] Information not available 08/26/2024 Mental Status Question Answer Note LastModified by Organizat ion Details LastModified Time Do you feel stressed (tense, restless, nervous, or anxious, or unable to sleep at night)? [id number] [email or web address] Information not available 07/04/2024 Do you have difficulty concentrating, remembering or making decisions? No [email or web address] Information no t available 05/09/2022 Family History Relationship Description Onset Age of this Age Resolved Age Notes LastModified by Organization Details LastModified Time Unspecified Relation Family history of Hypertension [email or web address] Not available 15:30:20 Unspecified Relation Family history of drug abuse [email or web address] Not available 11/2021 15:30:22 Medical History Condition Response Hospitalizations N Emergency room visit since last appointm ent. N Gynecological History Statement/Question Response Menses Monthly N HPV Vaccine Y Date of Last Pap Smear 02/08/2022 Current Control Method Depo-Anthropometrist a Most Recent Mammogram Obstetrics History GPAL:G 0 P 0 0 0 0 Immunizations Vaccine Type Date Status Note Provider Nam e and Address Organization Details Recorded Time Influenza, split virus, quadrivalent, PF 3 completed Deann Mayen, [employer] [address] [facility], [place], [address], [employer] [employer] 03/21/2023 17:48:59 HPV9 8 completed Almaz johnson, [employer] 01/07/2024 13:32:40 varicella 2 completed Not Available [facility] 02/07/2022 23:08:40 varicella 3 completed Not Available [facility] 02/07/2022 23:08:40 MMR 5 completed Not Available [facility] 02/07/2022 23:08:40 MMR 2 completed Not Available [facility] 02/07/2022 23:08:40 Hep B, adolescent or pediatric 1 completed Not Available [facility] 02/07/2022 23:08:40 IPV 2 completed Not Available [facility] 02/07/2022 23:08:41 IPV 5 completed Not Available [facility] 02/07/2022 23:08:41 IPV 1 completed Not Available [facility] 02/07/2022 23:08:41 IPV 1 completed Not Available [facility] 02/07/2022 23:08:41 Hep A, ped/adol, 2 dose 8 completed Almaz johnson, [employer] 01/07/2024 13:32:41 Hep A, ped/adol, 2 dose 3 completed Not Available [facility] 02/07/2022 23:08:41 Tdap 3 completed Not Available [facility] 02/07/2022 23:08:41 meningococcal MCV4P 8 completed Almaz johnson [employer] 01/07/2024 13:32:41 HPV, quadrivalent 3 completed Not Available [facility] 02/07/2022 23:08:42 HPV, quadrivalent 3 completed Not Available [facility] 02/07/2022 23:08:42 DTaP 5 completed JONNATHAN MOMIN null, [employer] 08/30/2023 13:56:23 DTaP 1 completed JONNATHAN MOMIN null, [employer] 08/30/2023 13:56:23 DTaP 1 completed JONNATHAN MOMIN null, [employer] 08/30/2023 13:56:23 DTaP 1 completed JONNATHAN MOMIN null, [employer] 08/30/2023 13:56:23 DTaP 2 completed JONNATHAN MOMIN null, [employer] 08/30/2023 13:56:23 meningococcal MCV4P 3 completed JONNATHAN MOMIN null, [employer] 08/30/2023 13:56:23 Hib (PRP-OMP) 1 completed Not Available [facility] 02/07/2022 23:08:43 pneumococcal conjugate PCV 7 2 completed Not Available [facility] 02/07/2022 23:08:43 pneumococcal conjugate PCV 7 1 completed Not Available [facility] 02/07/2022 23:08:44 pneumococcal conjugate PCV 7 1 completed Not Available [facility] 02/07/2022 23:08:44 pneumococcal conjugate PCV 7 1 completed Not Available [facility] 02/07/2022 23:08:44 Hib-Hep B 2 completed Not Available [facility] 02/07/2022 23:08:44 Hib-Hep B 1 completed Not Available [facility] 02/07/2022 23:08:44 Influenza, split virus, quadrivalent, PF 0 completed EDMUND JOHNSON null, [employer] 05/09/2022 15:22:58 meningococcal MCV4, unspecified formulation 3 completed EDMUND JOHNSON null, [employer] 07/25/2022 14:15:24 Meningococcal MCV4O 3 completed JONNATHAN MOMIN null, [employer] 08/30/2023 13:56:23 DTaP, unspecified formulation 5 completed JONNATHAN MOMIN null, [employer] 08/30/2023 13:56:23 DTaP, unspecified formulation 1 completed JONNATHAN MOMIN null, [employer] 08/30/2023 13:56:23 DTaP, unspecified formulation 1 completed JONNATHAN MOMIN null, [employer] 08/30/2023 13:56:23 DTaP, unspecified formulation 1 completed JONNATHAN MOMIN null, [employer] 08/30/2023 13:56:23 DTaP, unspecified formulation 2 completed JONNATHAN MOMIN null, [employer] 08/30/2023 13:56:23 Tdap 3 completed Not Available [facility] 10/28/2024 16:04:53 Past Encounters Encounter ID Performer Location Encounter Start Date Encounter Closed Date Diagnosis/Indication Diagnosis SNOMED-CT Code Diagnosis ICD10 Code Diagnosis Note [id number] Xiomara Fan [address] [address] 10/28/2024 16:03:50 10/28/2024 16:56:33 Idiopathic urticaria 78301467 L50.9 Overweight in adulthood with body mass index of 25 or more but less than 30 951999744 Z68.25 Health Concerns Section Related Observation LastModified by Organization Detai ls LastModified Time None Recorded Concern Status LastModified by Organization Details LastModified Time None Recorded Payers Encounter Date Sequence Insurance Name Policy Number Policy Anton Covered Member ID Anton Member ID Guarantor Name 10/28/2024 1 [facility] (MEDICAID HMO) Noy Hines [id number] Noy Hines Notes Date Note Type Note Provider Name and Address Organization Details Recorded Time 10/28/2024 text/html pt here today concerned about labwork that was done at [facility]. pt seen [facility] on 10/01 and states that they called her and told her that she needed to see her PCP for abnormal labs but didnt inoculator her the results. pt states that she knows one of the workers there and sent her a message and she told pt that her thyroid and LUCA was abnormal and that she needed to see PCP for that. the lab results that i received didnt have an LUCA on it (unless they didnt send all lab results) and the TSH and T4 were WNL. pt states that she has a f/u appt on 11/12 but the office is closing its doors on 11/14. i advised pt to keep her f/u appt and make sure she gets a copy of her lab results. see what their plan is and then we will go from there. pt voiced understanding. Xiomara Fan APRN [address] [place], [address], [facility] [employer] 10/28/2024 17:56:01 OBGyn Episode No OBEpisode recorded.
--- OUTSIDE RECORDS SUMMARY | 2024-11-11 13:26 | XMS_ITS | Continuity of Care Document ---
Author Organization [place] - Charles [employer]., [facility] Address [address] [place] [id number] Care Team Providers Care Drop Count Associate Name Role Phone XIOMARA FAN Primary Care Provider Unavailabl e Assessment No assessment recorded. Plan of Treatment Reminders Order Date Submit Date Provider Last Modified By Organization Details Last Modified Time Details Appointments None recorded. Lab test, urine 2024 025 [email or web address] [facility], [address] [place] [address], [phone], 18:16:13 Referral None recorded. Procedures None recorded. Surgeries None recorded. Imaging None recorded. Medication Orders phentermine 37.5 mg tablet 2024 025 [facility], [address] [place] [address], [id number], 17:43:50 Patient TargetsNo targets recorded. Patient Instructions Encounter Date Encounter Id Patient Instructions Last Modified By Organization Details Last Modified Time 09/22/2024 [id number] controlled substance agreement* Not available 09/22/2024 18:15:51 Reason for Referral None Reported. Results Created Date Observation Date Name Description Value Unit Range Abnormal Flag Note LastModifiedBy Organization Detail LastModifiedTime 09/23/1909/22/2024 pregn daniel test, urine HCG negati ve Not Available [address], [phone], 09/22/2024 17:35:02 Result Notes None recorded. Problems Name Problem SNOMED Code Status Onset Date Resolution Date Notes Provider Name and Address Organization Details Recorded Time Acute sinusiti s 71933179 Active 2023 PAWEL CALDWELL [address] [place] [address], [phone] , [email or web address]. 4 14:41:13 Dysuria 54709377 Active 2023 Problem Code: R30.0; Problem Code Type: ICD-10; Almaz johnson, [employer] 4 14:10:39 Fever 578130698 Active 2023 Problem Code: R50.81; Problem Code Type: ICD-10; Almaz johnson, [email or web address]. 4 16:54:07 Influenz a caused by Influenz a A virus 785120060 Active 2024 Hanh Ty NP [address] [place] [address], [phone] , [email or web address]. 5 14:33:34 Nausea 495012650 Active 2024 Problem Code: R11.0; Problem Code Type: ICD-10; Hanh yT NP [address] [place] [address], [phone] , [email or web address]. 5 14:33:38 Infectio us enteriti s of intestin e 27260973 Completed 201605/20/2017 Problem Code: A09; Problem Code Type: ICD-10; Not Available [facility] 2 20:51:26 Candidia sis of vulva 6345383 Completed 202004/12/2021 Not Available [facility] 2 20:51:26 Candidia sis of vulva 8077892 Completed 201911/18/2020 [facility] Available [facility] 2 20:51:27 Vegan's anemia 180441429 Active 2020 Problem Code: D51.3; Problem Code Type: ICD-10; Not Available [facility] 2 20:51:27 Vitamin D deficien cy 45653044 Active 2020 Problem Code: E55.9; Problem Code Type: ICD-10; Not Available [facility] 2 20:51:27 Generali zed anxiety disorder 96801523 Active 2017 Problem Code: F41.1; Problem Code Type: ICD-10; Not Available [facility] 2 20:51:27 Migraine without aura 72830010 Active 2020 Problem Code: G43.009; Problem Code Type: ICD-10; Not Available [facility] 2 20:51:27 Bilatera l earache 897686786 Completed 201606/28/2016 Not Available [facility] 2 20:51:27 Otalgia of left ear Completed 201812/05/2019 EDMUNDJONATAN johnson, [employer] 2 15:29:27 Otalgia of left ear Completed 201805/09/2022 EDMUND johnson, [employer] 2 15:29:27 Otalgia of left ear Completed 201610/04/2016 EDMUND johnson, [employer] 2 15:29:27 Acute pharyngi tis 273378299 Completed 201608/13/2016 Problem Code: J02.8; Problem Code Type: ICD-10; EDMUND johnson, [employer] 2 15:29:28 Acute pharyngi tis 938976393 Completed 202107/29/2021 EDMUND johnson, [employer] 2 15:29:28 Acute pharyngi tis 365983100 Completed 201611/19/2016 Problem Code: J02.8; Problem Code Type: ICD-10; EDMUND johnson, [employer] 2 15:29:28 Acute pharyngi tis 848539366 Completed 201603/19/2017 Problem Code: J02.8; Problem Code Type: ICD-10; EDMUND johnson, [employer] 2 15:29:28 Acute pharyngi tis 761472936 Completed 201707/13/2018 Problem Code: J02.8; Problem Code Type: ICD-10; EDMUND johnson, [employer] [facility] [employer] 2 15:29:28 Acute pharyngi tis 275554613 Completed 202105/09/2022 EDMUNDJONATAN JOHNSON null, [facility] [employer] 2 15:29:28 Acute pharyngi tis 601633647 Completed 201912/05/2019 EDMUND JOHNSON null, [facility] 2 15:29:28 Influenz a 4942832 Completed 201708/11/2017 Problem Code: J10.1; Problem Code Type: ICD-10; Not Available [facility] 2 20:51:28 Influenz a with gastroin testinal tract involvem ent 225278573 Completed 202105/09/2022 Problem Code: J10.2; Problem Code Type: ICD-10; EDMUND johnson, [employer] 2 15:29:27 Moderate major depressi on, single episode 24108544 Active 2016 Problem Code: F32.1; Problem Code Type: ICD-10; Not Available [facility] 2 20:51:28 Disorder of upper respirat ory system 547992893 Completed 201805/09/2022 Problem Code: J39.9; Problem Code Type: ICD-10; EDMUND johnson, [employer] 2 15:29:27 Acute gastriti s 91217886 Completed 201704/09/2018 Problem Code: K29.00; Problem Code Type: ICD-10; Not Available [facility] 2 20:51:28 Melena 0190132 Completed 201604/16/2017 Problem Code: K92.1; Problem Code Type: ICD-10; Not Available [facility] 2 20:51:28 Pain in right knee Completed 201701/18/2018 Problem Code: M25.561; Problem Code Type: ICD-10; Not Available [facility] 2 20:51:29 Knee pain Completed 201708/27/2017 Not Available [facility] 2 20:51:29 Myositis 90204582 Completed 202105/09/2022 Problem Code: M60.9; Problem Code Type: ICD-10; EDMUND johnson, [employer] 2 15:29:27 Urinary tract infectio us disease 45378215 Completed 201805/09/2022 Problem Code: N39.0; Problem Code Type: ICD-10; EDMUND JOHNSON null, [employer] [facility] [employer] 2 15:29:28 Urinary tract infectio us disease 91079398 Completed 201912/05/2019 Problem Code: N39.0; Problem Code Type: ICD-10; EDMUND JOHNSON null, [employer] 2 15:29:28 Urinary tract infectio us disease 40698223 Completed 201602/19/2017 Problem Code: N39.0; Problem Code Type: ICD-10; EDMUND JOHNSON null, [employer] 2 15:29:28 Urinary tract infectio us disease 51796124 Completed 202004/12/2021 Problem Code: N39.0; Problem Code Type: ICD-10; EDMUND JOHNSON null, [employer] [facility] [employer] 2 15:29:28 Urinary tract infectio us disease 73888210 Completed 201911/18/2020 Problem Code: N39.0; Problem Code Type: ICD-10; EDMUND JOHNSON null, [employer] [facility] [employer] [employer] 2 15:29:28 Vaginola bial hernia Completed 201805/09/2022 Problem Code: N89.8; Problem Code Type: ICD-10; EDMUND johnson, [employer] [facility] [facility] [employer] 2 15:29:27 Dysmenor ronda 849508525 Active 2018 Not Available [facility] 2 20:51:30 Tachycar mark 5352665 Active 2019 Not Available [facility] 2 20:51:30 Spasmodi c torticol lis 36654293 Completed 201709/24/2017 Problem Code: G24.3; Problem Code Type: ICD-10; Not Available [facility] 2 20:51:30 Nausea 309312036 Completed 201604/04/2017 Problem Code: R11.0; Problem Code Type: ICD-10; Hanh Ty, RN PLASTIC SURGERY [address] [place] [address], [phone] , [employer] [facility] [employer] 5 14:33:38 Vomiting 844105982 Completed 202005/09/2022 EDMUNDJONATAN johnson, [employer] [facility] [employer] 2 15:29:28 Generali zed abdomina l pain 277077554 Completed 201608/13/2016 Problem Code: R10.84; Problem Code Type: ICD-10; Not Available [facility] 2 20:51:31 Generali zed abdomina l pain 224242304 Completed 201811/18/2020 Problem Code: R10.84; Problem Code Type: ICD-10; Not Available [facility] 2 20:51:31 Nausea and vomiting 85369684 Completed 201702/22/2018 Problem Code: R11.2; Problem Code Type: ICD-10; EDMUND johnson, [employer] [facility] [employer] 2 15:29:27 Heartbur n 58204874 Completed 201710/09/2017 Problem Code: R12; Problem Code Type: ICD-10; Not Available [facility] 2 20:51:31 Nausea and vomiting 45621862 Completed 201604/04/2017 Problem Code: R11.2; Problem Code Type: ICD-10; EDMUND johnson, [email or web address] 2 15:29:27 Generali zed abdomina l pain 507140206 Completed 201602/01/2017 Problem Code: R10.84; Problem Code Type: ICD-10; Not Available [facility] 2 20:51:32 Diarrhea 27584996 Completed 201704/25/2018 Problem Code: R19.7; Problem Code Type: ICD-10; Not Available [facility] 2 20:51:32 Dysuria 95195739 Completed 201805/09/2022 Problem Code: R30.0; Problem Code Type: ICD-10; Almaz johnson, [email or web address] 4 14:10:39 Dysuria 90714570 Completed 201912/05/2019 Problem Code: R30.0; Problem Code Type: ICD-10; Almaz Edita johnson, [email or web address]. 4 14:10:39 Fever 711119396 Completed 201605/09/2022 Problem Code: R50.81; Problem Code Type: ICD-10; Almaz johnson, [email or web address]. 4 16:54:07 Pyrexia of unknown origin 1511933 Completed 201912/05/2019 Problem Code: R50.9; Problem Code Type: ICD-10; Not Available [facility] 2 20:51:33 Chronic fatigue syndrome 64990056 Completed 201902/11/2021 Problem Code: R53.82; Problem Code Type: ICD-10; Not Available [facility] 2 20:51:33 Finding of general energy 008244228 Completed 202005/09/2022 Problem Code: R53.83; Problem Code Type: ICD-10; EDMUND johnson, [email or web address] 2 15:29:27 Syncope and collapse 056365135 Completed 201911/18/2020 Problem Code: R55; Problem Code Type: ICD-10; Not Available [facility] 2 20:51:34 Non-supp urative otitis media 270435328 Completed 201612/05/2019 Not Available [facility] 2 20:51:34 Otalgia of left ear Completed 201602/01/2017 EDMUND johnson [employer] 2 15:29:27 COVID-19 660749628 Completed 202107/29/2021 Problem Code: U07.1; Problem Code Type: ICD-10; Not Available [facility] 2 20:51:34 General examinat ion of patient Completed 202002/11/2021 Not Available [facility] 2 20:51:35 Syphilis test finding 609401060 Completed 202002/11/2021 Problem Code: Z11.3; Problem Code Type: ICD-10; Not Available [facility] 2 20:51:35 Choleste rol screenin g Completed 201905/09/2022 EDMUND johnson [employer] 2 15:29:27 Acute pharyngi tis 822828803 Completed 201704/09/2018 Problem Code: J02.8; Problem Code Type: ICD-10; EDMUND johnson [email or web address] 2 15:29:28 Uses depot contrace ption 636450416 Completed 201811/18/2020 Not Available [facility] 2 20:51:36 Natural contrace ption educatio n Completed 201911/18/2020 Problem Code: Z31.61; Problem Code Type: ICD-10; Not Available [facility] 2 20:51:36 Body mass index 20-24 - normal 733848104 Active 2019 Not Available [facility] 2 20:51:37 Finding of body mass index 335897183 Completed 201911/18/2020 Problem Code: Z68.1; Problem Code Type: ICD-10; Not Available [facility] 2 20:51:37 Body mass index 20-24 - normal 396369613 Completed 201911/18/2020 Not Available [facility] 2 20:51:37 Body mass index 20-24 - normal 092060392 Completed 201911/18/2020 Not Available [facility] 2 20:51:38 Body mass index 20-24 - normal 061351960 Completed 202011/18/2020 Not Available [facility] 2 20:51:39 High risk heterose xual behavior 68422054163 9101 Completed 201905/09/2022 Problem Code: Z72.51; Problem Code Type: ICD-10; EDMUND johnson, [employer] [facility] 2 15:29:27 Colitis, enteriti s and gastroen teritis presumed infectio us 662767226 Completed 201605/20/2017 Problem Code: 009.1; Problem Code Type: ICD-9; Not Available [facility] 2 20:51:39 Depressi ve disorder 23902012 Active 2016 Problem Code: 311; Problem Code Type: ICD-9; Not Available [facility] 2 20:51:40 Breast lump 52416331 Completed 201612/05/2019 Problem Code: N63; Problem Code Type: ICD-10; Not Available [facility] 2 20:51:40 Otogenic otalgia 21113492 Completed 201606/28/2016 Problem Code: 388.71; Problem Code Type: ICD-9; Not Available [facility] 2 20:51:40 Otogenic otalgia 39398312 Completed 201602/01/2017 Problem Code: 388.71; Problem Code Type: ICD-9; Not Available [facility] 2 20:51:41 Influenz a with respirat ory manifest ation other than pneumoni a Completed 201708/11/2017 Problem Code: 487.1; Problem Code Type: ICD-9; Not Available [facility] 2 20:51:41 Migraine with aura 9039107 Completed 201711/18/2020 Problem Code: 346.00; Problem Code Type: ICD-9; Not Available [facility] 2 20:51:41 Irritabl e bowel syndrome 51177190 Completed 201711/18/2020 Problem Code: 564.1; Problem Code Type: ICD-9; Not Available [facility] 2 20:51:41 Otogenic otalgia 44998893 Completed 201610/04/2016 Problem Code: 388.71; Problem Code Type: ICD-9; Not Available [facility] 2 20:51:42 Hematoch ezia 435345893 Completed 201604/16/2017 Problem Code: 578.1; Problem Code Type: ICD-9; Not Available [facility] 2 20:51:42 Knee pain Completed 201701/18/2018 Problem Code: 719.46; Problem Code Type: ICD-9; Not Available [facility] 2 20:51:43 Nausea and vomiting 14473534 Completed 201606/28/2016 Problem Code: R11.2; Problem Code Type: ICD-10; EDMUND johnson [employer] 2 15:29:27 Nausea and vomiting 54322440 Completed 201805/09/2022 Problem Code: R11.2; Problem Code Type: ICD-10; EDMUND johnson [employer] 2 15:29:27 Nausea and vomiting 10643956 Completed 201701/31/2018 Problem Code: R11.2; Problem Code Type: ICD-10; EDMUND johnson [employer] 2 15:29:27 Gastroes ophageal reflux disease 426862659 Completed 201711/18/2020 Problem Code: 530.81; Problem Code Type: ICD-9; Not Available [facility] 2 20:51:44 Nausea and vomiting 82909834 Completed 201712/05/2019 Problem Code: R11.2; Problem Code Type: ICD-10; [facility]D [facility] 2 15:29:27 Generali zed anxiety disorder 76998281 Completed 201711/18/2020 Problem Code: 300.02; Problem Code Type: ICD-9; Not Available [facility] 2 20:51:49 Problem Notes None recorded. Procedures Surgical History Date Name Laterality Status Provider Name and Address Organization Details Recorded Time 02/08 Date of Last Pap Smear completed EDMUND [employer] 2 15:29:43 03/21 tonsillectomy and adenoidectomy completed Not Available [facility] 2 22:56:07 06/14 tympanostomy completed Not Available [facility] 2 22:56:07 esophagogastroduodenoscopy completed [employer] 4 14:08:57 extraction of wisdom tooth completed [employer]. 4 14:09:05 Imaging Results None recorded. Procedure Notes None recorded. Medical Equipment None Reported. Allergies Allergen ID Allergen Name Allergen Category Reaction Reaction Severity Criticality Documentation Date Start Date Code Code System Note Provider Name and Address Organization Details Recorded Time 48839 chlorphen iramine / hydrocodo ne / pseudoeph edrine medicatio n Not available Not available Not available 02/07/2022 11432 4 RxNorm EDMUND JOHNSON [employer] 2 15:23:05 78240 brompheni ramine / pseudoeph edrine medicatio n Not available Not available Not available 02/07/2022 82122 6 RxNorm [facility]UND [facility] [employer]. 2 15:23:08 01924 Medicinal product containin g tetracycl ine structure and acting as antibacte rial agent (product) medicatio n Not available Not available Not available 02/07/2022 05586 1004 SNSHANNAN EDMUNDJONATAN johnson [facility] [employer], [facility]. 2 15:23:11 22630 azithromy kunal medicatio n Not available Not available Not available 02/07/2022 50577 RxNorm Not Available [facility] 2 22:57:03 00119 Ceftin medicatio n Not available Not available Not available 02/07/2022 97281 6 RxNorm Not Available [facility] 2 22:57:03 Medications Name Sig Start Date [...] height Body mass index (BMI) Body weight Oxygen saturation Oxygen saturation in Arterial blood by Pulse oximetry Heart rate Systolic blood pressure Diastolic blood pressure Provider Name and Address Organization Details Last Updated DateTime 5 166.37 cm 25.5 kg/m2 51363.9 2 g 99 % 99 % 83 /min 122 mm[Hg] 77 mm[Hg] Almaz Kohler [facility] [employer]. 16:52:26 Social History Question Answer Notes LastModified by Organizat ion Details LastModified Time Tobacco Smoking Status Never Smoker EDMUND johnson [email or web address]. 05/09/2022 15:30:51 Do You Have An Advance Directive? No [email or web address] Information n ot available 08/30/2023 Is Your Home Air Conditioned? Yes Information not available 10/02/2022 Do You Wear A Helmet When Biking? No [email or web address] Information not available 07/04/2024 Are You Blind Or Do You Have Difficulty Seeing? No [email or web address] Information n ot available 05/09/2022 What Is Your Level Of Caffeine Consumption? Heavy Information not available 10/13/2022 Are You A Caregiver? Yes [email or web address] Information not available 05/09/2022 What Type Of Hospice Coordinator Do You Use? None [email or web address] Information not available 08/30/2023 In The 14 Days Before Symptom Onset, Have You Had Close Contact With A Laboratory-confirm ed COVID-19 While That Case Was Ill? No [email or web address] Information n ot available 05/09/2022 In The 14 Days Before Symptom Onset, Have You Had Close Contact With A Person Who Is Under Investigation For COVID-19 While That Person Was Ill? No [email or web address] Information not available 05/09/2022 Have You Been To An Area Known To Be High Risk For COVID-19? No [email or web address] Information not available 05/09/2022 Are You Deaf Or Do You Have Serious Difficulty Hearing? No [email or web address] Information not available 05/09/2022 What Type Of Diet Are You Following? REGULAR Information n ot available 07/04/2024 Have There Been Any Changes To Your Family Or Social Situation? No [email or web address] Information no t available 08/30/2023 Do You Have A Medical Power Of Ruby [employer] Rails Web Developer? No [email or web address] Information not available 08/30/2023 What Was The Date Of Your Most Recent Tobacco Screening? 10/28/2024 Information not available 10/28/2024 Have You Ever Been Counseled For Unhealthy Alcohol Use? No Information not available 10/13/2022 What Is Your Relationship Status? Single [email or web address] Information not available 05/09/2022 Do You Use Your Seat Belt Or Car Seat Routinely? Yes Information not available 10/02/2022 Are You Sexually Active? No [email or web address] Information not available 07/04/2024 Do You Have Smoke And Carbon Monoxide Detectors In Your Home? Yes Information not available 10/02/2022 Are You Passively Exposed To Smoke? No Information no t available 10/02/2022 Are There Any Smokers In Your House? No Information not available 10/02/2022 Do You Participate In Social Media? Yes [email or web address] Information not available 07/04/2024 Do You Use Sunscreen Routinely? No Information not available 10/02/2022 Have You Recently Traveled Abroad? No [email or web address] Information not available 05/09/2022 Do You Have Difficulty Walking Or Climbing Stairs? No [email or web address] Information not available 05/09/2022 Are You Currently In School? No Information not available 10/02/2022 Do You Have Any Dietary Restrictions? No [email or web address] Information not available 07/04/2024 Sex: Female Functional Status Question Answer Note LastModified by Organizat ion Details LastModified Time Do you use any illicit or recreational drugs? No Information not available 10/13/2022 Do you or have you ever used any other forms of tobacco or nicotine? No [email or web address] Information not available 05/01/2023 What is your level of alcohol consumption? None [email or web address] Information not available 08/30/2023 Are you currently employed? No [email or web address] Information not available 08/30/2023 Do you have transportation difficulties? No [email or web address] Information not available 05/09/2022 Are you able to walk? YESWOREST [email or web address] Information not available 05/09/2022 Do you have difficulty doing errands alone? No [email or web address] Information not available 05/09/2022 Are you able to care for yourself? Yes [email or web address] Information not available 05/09/2022 Do you have difficulty dressing or bathing? No [email or web address] Information not available 05/09/2022 What is your exercise level? Moderate [email or web address] Information not available 08/26/2024 Mental Status Question Answer Note LastModified by Organizat ion Details LastModified Time Do you feel stressed (tense, restless, nervous, or anxious, or unable to sleep at night)? [id number] [email or web address] Information not available 07/04/2024 Do you have difficulty concentrating, remembering or making decisions? No [email or web address] Information no t available 05/09/2022 Family History Relationship Description Onset Age of this Age Resolved Age Notes LastModified by Organization Details LastModified Time Unspecified Relation Family history of Hypertension [email or web address] Not available 15:30:20 Unspecified Relation Family history of drug abuse [email or web address] Not available 11/2021 15:30:22 Medical History Condition Response Emergency room visit since last appointm ent. N Hospitalizations N Gynecological History Statement/Question Response Menses Monthly N HPV Vaccine Y Date of Last Pap Smear 02/08/2022 Current Control Method [employer] a Most Recent Mammogram Obstetrics History GPAL:G 0 P 0 0 0 0 Immunizations Vaccine Type Date Status Note Provider Nam e and Address Organization Details Recorded Time Influenza, split virus, quadrivalent, PF 3 completed Deann Mayen, [address] [facility], [place], [address], [employer] 03/21/2023 17:48:59 HPV9 8 completed Almaz johnson, [employer] 01/07/2024 13:32:40 varicella 2 completed Not Available [facility] 02/07/2022 23:08:40 varicella 3 completed Not Available [facility] 02/07/2022 23:08:40 MMR 5 completed Not Available [employer] 02/07/2022 23:08:40 MMR 2 completed Not Available [facility] 02/07/2022 23:08:40 Hep B, adolescent or pediatric 1 completed Not Available [employer] 02/07/2022 23:08:40 IPV 2 completed Not Available [employer] 02/07/2022 23:08:41 IPV 5 completed Not Available [facility] 02/07/2022 23:08:41 IPV 1 completed Not Available [facility] 02/07/2022 23:08:41 IPV 1 completed Not Available [facility] 02/07/2022 23:08:41 Hep A, ped/adol, 2 dose 8 completed Almaz Kohler null, [employer] 01/07/2024 13:32:41 Hep A, ped/adol, 2 dose 3 completed Not Available [facility] 02/07/2022 23:08:41 Tdap 3 completed Not Available [facility] 02/07/2022 23:08:41 meningococcal MCV4P 8 completed Almaz Kohler null, [employer] 01/07/2024 13:32:41 HPV, quadrivalent 3 completed Not Available [facility] 02/07/2022 23:08:42 HPV, quadrivalent 3 completed Not Available [facility] 02/07/2022 23:08:42 DTaP 5 completed JONNATHAN MOMIN null, [employer] 08/30/2023 13:56:23 DTaP 1 completed JONNATHAN MOMIN null, [employer] 08/30/2023 13:56:23 DTaP 1 completed JONNATHAN MOMIN null, [employer] 08/30/2023 13:56:23 DTaP 1 completed JONNATHAN MOMIN null, [employer] 08/30/2023 13:56:23 DTaP 2 completed JONNATHAN MOMIN null, [employer] 08/30/2023 13:56:23 meningococcal MCV4P 3 completed JONNATHAN MOMIN null, [employer] 08/30/2023 13:56:23 Hib (PRP-OMP) 1 completed Not Available Formerly [facility], 1928–1983 02/07/2022 23:08:43 pneumococcal conjugate PCV 7 2 completed Not Available Formerly [facility], 1928–1983 02/07/2022 23:08:43 pneumococcal conjugate PCV 7 1 completed Not Available Formerly [facility], 1928–1983 02/07/2022 23:08:44 pneumococcal conjugate PCV 7 1 completed Not Available [facility]ly [facility], 1928–1983 02/07/2022 23:08:44 pneumococcal conjugate PCV 7 1 completed Not Available [facility]ly [facility], [facility]–1983 02/07/2022 23:08:44 Hib-Hep B 2 completed Not Available [facility]ly [facility], [facility]–1983 02/07/2022 23:08:44 Hib-Hep B 1 completed Not Available Formerly [facility], [facility]–1983 02/07/2022 23:08:44 Influenza, split virus, quadrivalent, PF 0 completed EDMUND ELIZABETH null, [employer] 05/09/2022 15:22:58 meningococcal MCV4, unspecified formulation 3 completed EDMUND ELIZABETH null, [employer] 07/25/2022 14:15:24 Meningococcal MCV4O 3 completed JONNATHAN MOMIN null, [employer] 08/30/2023 13:56:23 DTaP, unspecified formulation 5 completed JONNATHAN MOMIN null, [employer] 08/30/2023 13:56:23 DTaP, unspecified formulation 1 completed JONNATHAN MOMIN null, [employer] 08/30/2023 13:56:23 DTaP, unspecified formulation 1 completed JONNATHAN MOMIN null, [employer] 08/30/2023 13:56:23 DTaP, unspecified formulation 1 completed JONNATHAN MOMIN null, [employer] 08/30/2023 13:56:23 DTaP, unspecified formulation 2 completed JONNATHAN MOMIN null, [employer] 08/30/2023 13:56:23 Tdap 3 completed Not Available [facility] 10/28/2024 16:04:53 Past Encounters Encounter ID Performer Location Encounter Start Date Encounter Closed Date Diagnosis/Indication Diagnosis SNOMED-CT Code Diagnosis ICD10 Code Diagnosis Note [id number] Xiomara Fan [place] [id number] 08/26/2024 16:23:09 08/26/2024 17:14:33 Dysuria 60462011 R30.0 Bacterial vaginosis 4197 68458 N76.0 Acute urin felisha tract infection 191794480 N39.0 Body mass index 20-24 - normal 400851712 Z68.22 Pruritic rash 60912072 L 28.2 [id number] Xiomara Fan APRN [place] [id number] 09/22/2024 16:41:50 09/22/2024 17:28:17 Obesity 609634736 E66.9 Body mass index 25-29 - overweight 362097830 Z68.25 Health Concerns Section Related Observation LastModified by Organization Detai ls LastModified Time None Recorded Concern Status LastModified by Organization Details LastModified Time None Recorded Payers Encounter Date Sequence Insurance Name Policy Number Policy Anton Covered Member ID Anton Member ID Guarantor Name 09/22/2024 1 [facility] (MEDICAID HMO) Noy Hines [id number] Noy Hines Notes Date Note Type Note Provider Name and Address Organization Details Recorded Time 09/22/2024 text/html pt here today requesting wt loss medication. states that she has cut out soda from her diet. she has tried OTC wt loss meds. she has tried to diet and exercise. and she cannot lose this extra 10 lbs she wants to lose. pt states that she knows she is not obese but she is not comfortable in her body and she wants to lose a few more lbs. talked with pt about her BMI and diet and exercise. i will order adipex for 1 month. if pt loses any wt her BMI will be too low and cannot get a refill. pt voiced understanding. UPT neg. Xiomara Fan APRN [address] [place] [address], [phone], [facility] [employer] 09/22/2024 18:16:10 OBGyn Episode No OBEpisode recorded.
--- OUTSIDE RECORDS SUMMARY | 2024-11-11 13:26 | XMS_ITS | Clinical Summary ---
Author Organization [facility] Address [address] [place] [address] Care Team Providers Care Air Quality Consultant Name Role Phone Ryanne Heath Lukas FAM Primary Care Provider [phone] Allergies Active Allergy Reactions Criticality Noted Date Comments Azithromycin Hives Medium 08/29/2017 Cefdinir Rash Low 01/17/2018 Cefuroxime Hives Medium 08/29/2017 Doxycycline Other - please docum ent in the comment field,Rash Low 08/29/2017 Erythromycin Rash Low 01/17/2018 Guaifenesin-Dm Hives Medium 08/29/2017 Social History Tobacco Use Types Packs/Day Years Used Date Smoking Tobacco: Never Assessed Comments Unknown Sex and Gender Information Value Date Recorded Sex Assigned at Not on file Legal Sex Female 9:30 PM EDT Gender Identity Not on file Sexual Orientation Not on file Last Filed Vital Signs Vital Sign Reading Time Taken Comments Blood Pressure 132/80 05/05/2021 2:46 AM EST Pulse 71 05/05/2021 2:46 AM EST Temperature 36.5 C (97.7 F) 05/05/2021 2:46 AM EST Respiratory Rate 16 05/05/2021 2:46 AM EST Oxygen Saturation 100% 05/05/2021 2:46 AM EST Inhaled Oxygen Concentration - - Weight 66.7 kg (147 lb) 05/04/2021 9:04 PM EST Height 167.6 cm (5' 6 ) 05/04/2021 9:04 PM EST Body Mass Index 23.73 05/04/2021 9:04 PM EST Plan of Treatment Health Maintenance Due Date Last Done Comments [facility]-Depression Screening 2000 [facility]-/Child/Adol SDOH Screenings 2000 [facility]- SDOH Screenings 2018 [facility]-Adult SDOH Screenings 2018 [facility]-Pap Smear 2021 [facility]-DTaP,Tdap,and Td Vaccines (2 - Td or Tdap) 01/15/2023 01/15/2013 [facility]-WVRXP-25 Vaccine (1 - season) 2024 [facility]-Influenza Vaccine (Season Ended) 2025 03/19/2020 [facility]-Zoster Vaccines (1 of 2) 2050 01/15/2013, 09/09/2001 [facility]-HIB Vaccines Completed 09/09/2001, 02/2001, 2000 [facility]-Hepatitis B Vaccines Completed 002, 2000, 2000 [facility]-IPV Vaccines Completed 10/03/2004, 01/2002, 01/10/2001, Additional history exists [facility]-Varicella Vaccines Completed 01/15/2013, 2001 HPV Vaccines Completed 09/13/2017, 04/05, 01/15/2013 [facility]-Hepatitis A Vaccines Completed 09/13/2017, 01/02 [facility]-Pneumococcal Vaccine: Pediatrics (0 to 5 Years) and At-Risk Patients (6 to 49 Years) Aged Out No longer eligible based on patient's age to complete this topic [facility]-Rotavirus Vaccines Aged Out No lo nger eligible based on patient's age [place] [id number] [employer] MEDICAID [facility] MEDICAID Care Teams Air Quality Consultant Relationship Specialty Start Date End Date Ryanne Heath APRN [address] [place] [address] PCP - General 10/15/20
== END 2024-11-11 23:59 | disposition home or self-care (01) ==
LOC: LAB 13:09
PROVIDERS: PCP Nurse Practitioner; Visit Provider Allergy & Immunology
DX: L50.5 Cholinergic urticaria (principal); L50.8 Other urticaria
CPT/HCPCS: 36415

== ENCOUNTER 2025-04-17 17:50 | Emergency (ER) | payer OTHER, SELFPAY ==
--- NOTE | 2025-04-17 17:57 | ED_ITS ---
<Statement entered by Atul Cedeño DO - 04/18/25 01:14> I was consulted by the JEANNIE, and we discussed the complexity of problems being addressed. I approved the treatment and management plan for this patient's care in the emergency department, thus performing a substantive portion of the medical decision making. Atul Cedeño DO Would like to add that we did obtain an EKG on this patient while in the emergency department. EKG was personally interpreted by me and demonstrated normal sinus rhythm at a rate of 67 bpm, normal axis, no CT prolongation, narrow QRS, no QTc prolongation. No ST elevation or depression. No overt signs of ischemia or arrhythmia. Discharge Plan Disposition Patient Disposition: Home, Self-Care Condition: Good Prescriptions Prescriptions: New nitrofurantoin monohyd/m-cryst [Macrobid] 100 mg capsule 100 mg PO BID 5 Days Qty: 10 0RF Rx Instructions: must administer with a meal/food ondansetron 4 mg tablet,disintegrating 4 mg PO Q6H PRN (Reason: nausea and vomiting) Qty: 10 0RF No Action cetirizine 10 mg tablet 10 mg PO DAILY Patient Comments: TAKE ONE TABLET BY MOUTH daily amoxicillin 500 mg capsule 500 mg PO BID Qty: 20 0RF Referrals Follow up/Referrals: Xiomara Fan APRN [Primary Care Provider, Medical] - See instructions Activity Restrictions/Add. Instructions Additional Instructions/Restrictions: Please return to the emergency department with any worsening signs or symptoms. Will call you with the results of your rapid antigen swabs, if actionable, no news is good news. Please utilize your antibiotic as prescribed with food, please take your antinausea medicine as needed for symptomatic relief. Please follow-up with your PCP in the upcoming days/weeks. Clinical Impressions Clinical Impression: Viral syndrome, UTI (urinary tract infection) Instructions Patient Instructions: DI for Urinary Tract Infection (UTI), DI for Viral Syndrome Print Language Print Language: Danish Discharge ED Provider: Atul Cedeño General Adult HPI General Chief complaint: Dizziness Stated complaint: Flu like symptoms and dizziness Time Seen by Provider: 04/17/25 17:53 Mode of Arrival: Ambulatory Source of Information: Patient and Medical Record Limitations: No Limitations History of Present Illness HPI narrative: 24-year-old female presents to the emergency department with lightheadedness/fatigue malaise, did have some myalgias, that all started on 04/12/2025, patient endorsed fever chills, recorded Tmax of 101 ?F , did endorse sore throat, no chest pain no shortness of breath, did have some heart palpitations , at times, has had several episodes of nausea and vomiting throughout the week, no diarrhea no constipation no urinary symptomatology, no hematuria melena hematochezia hematemesis, denies any other recent sick contacts, no other household members are suffering from similar symptoms, patient is a non-smoker denies any alcohol or drug use, no other real relevant past medical history takes no medication at home. Initial triage vitals are unremarkable. Please note that above description of symptoms, in this electronic medical record under categorization of recalled from ER triage doctor by RN are reflective of an initial nursing assessment, however, is not reflective of my full history and physical exam that was personally taken and clarified. Consequentially, this preceding description of symptoms, which may include the patient's categorized chief complaint in the EMR, do not reflect my personal clinical impression, and the ultimate description of history of present illness and patient stated complaints should be deferred to this section of the note. Unless stated otherwise or congruent with this section of the note, additional signs, symptoms, or incongruence should be interpreted as inaccurate with my clinical impression. Onset (ago): day(s) Related Data Home Medications ?Medication ?Instructions ?Recorded ?Confirmed cetirizine 10 mg tablet 10 mg PO DAILY 02/13/2502/02 Previous Rx's ?Medication ?Instructions ?Recorded amoxicillin 500 mg capsule 500 mg PO BID #20 caps 02/02 07/29 nitrofurantoin 100 mg PO BID 5 days #10 cap s 04/17/25 monohydrate/macrocrystals 100 mg capsule (Macrobid) ondansetron 4 mg disintegrating 4 mg PO Q6H PRN nausea and 04/17/25 tablet vomiting #10 tabs Allergies Allergy/AdvReac Type Severity Reaction Status Date / Time cefuroxime (From CEFTIN) Allergy Unknown Unknown Verified 02/13/25 15:42 allergy reaction chlorpheniramine (From Allergy Unknown Unknown Verified 02/13/25 15:42 CARDEC allergy (PHENYLEPHRIN-CHLORPHN)) reaction erythromycin base Allergy Unknown Unknown Verified 02/13/25 15:42 (ERYTHROMYCIN BASE) allergy reaction guaifenesin (From Robitussin) Allergy Unknown Unknown Verified 02/13/25 15:42 allergy reaction phenylephrine (From CARDEC Allergy Unknown Unknown Verified 02/13/25 15:42 (PHENYLEPHRIN-CHLORPHN)) allergy reaction azithromycin Allergy Unknown Verified 02/13/25 15:42 allergy reaction doxycycline Allergy Unknown Verified 02/13/25 15:42 allergy reaction PFSH PFS Disclaimer: The information contained in this section may have been updated after the patient was seen, as this information can be updated by other users. Medical History (Updated 04/17/25 @ 19:09 by RADHA Delvalle) Strep throat Vaginal yeast infection Asthma Normal esophagogastroduodenoscopy (EGD) Otitis media Encounter for gynecological examination (general) (routine) without abnormal findings Contraceptive management GERD (gastroesophageal reflux disease) Surgical History History of tympanostomy tube placement History of tonsillectomy [place] teeth extracted History of placement of ear tubes History of tonsillectomy Family History Mother Cancer Grandfather Diabetes Social History Smoking Status: Never smoker alcohol intake: never substance use type: denies use current occupational status: unemployed Travel in the last 8 weeks?: None household members: children housing: apartment Have you lived/traveled outside US in past 30 days?: No Contact w/someone who lives/traveled outside US past 30 days?: No Exposure to someone with infectious disease in past 14 days?: No Do you have a fever (greater than 100.4 F or 38 C)?: No Have you tested positive for COVID-19?: No Exposed to someone with COVID-19 in past 14 days?: No Do you have a sore throat?: No Do you have a cough?: No Do you have any weakness?: No Do you have any diarrhea?: No Are you experiencing any unusual bleeding?: No Do you have any muscle aches/pain?: No Do you have any abdominal pain?: No Are you experiencing loss of taste or smell?: No Other Medical History Have you received the Flu Vaccine for this season: No Have you received the Pneumonia Vaccine: No ROS Obtained: Yes All systems reviewed & no additional complaints except as documented Physical Exam General General appearance: alert and in no apparent distress Head Head exam: atraumatic and normocephalic Eye Eye exam: Present PERRL and EOMI ENT ENT exam: Present normal oropharynx and mucous membranes moist Neck Neck exam: Present normal inspection Chest Chest inspection: Present normal inspection and symmetric chest wall rise Respiratory Respiratory exam: Present normal lung sounds bilaterally; Absent respiratory distress Cardiovascular Cardiovascular exam: Present regular rate and normal rhythm Abdominal Exam Abdominal exam: Present soft; Absent tenderness, guarding or rebound Extremities Exam Extremities exam: Present normal inspection Neurological Exam Neurological exam: Present alert and oriented X3 Psychiatric Psychiatric exam: Present normal affect Skin Skin exam: Present warm and dry Medical Decision Making Medical Records Medical records reviewed: Yes I reviewed the patient's medical records. Screening: Per USPSTF and CDC recommendations, given the prevalence of disease in our region, it is our hospital?s policy to screen for HIV and viral Hepatitis for all patients aged 18 and over and those with ongoing risk factors. Camilo Inquiry Pt receiving controlled substance: No Camilo was queried for this patient: No Vital Signs: 04/17/25 17:59 Temperature 98 F Temperature Source Oral Pulse Rate [Right Radial] 67 Respiratory Rate 14 Blood Pressure [Right Arm] 122/84 Blood Pressure Mean [Right Arm] 96 Blood Pressure Source [Right Arm] Automatic Cuff Blood Pressure Position [Right Arm] Sitting 02 Sat by Pulse Oximetry 99 Oxygen Delivery Method Room Air Lab Data Lab results reviewed: Yes I reviewed the patient's lab results. Lab Results 04/17/25 17:56: Urine HCG, Qual Negative 04/17/25 18:04: Urine Color Yellow, Urine Appearance Clear, Urine pH 7.0, Ur Specific [place] 1.010, Urine Protein Negative, Urine Glucose (UA) Negative, Urine Ketones Negative, Urine Blood Negative, Urine Nitrate Positive A, Urine Bilirubin Negative, Urine Urobilinogen 1.0, Ur Leukocyte Esterase Negative, Urine RBC None, Urine WBC None, Ur Squamous Epith Cells 10-20, Urine Bacteria 1+ 04/17/25 18:11: WBC 5.2, RBC 4.60, Hgb 14.5, Hct 43.0, MCV 93.5, MCH 31.5 H, MCHC 33.7, RDW 11.6, Plt Count 213, MPV 9.9, Neut % (Auto) 62.6, Lymph % (Auto) 29.9, [place] % (Auto) 7.1, Eos % (Auto) 0.0 L, Baso % (Auto) 0.2, Neut # (Auto) 3.3, Lymph # (Auto) 1.6, [place] # (Auto) 0.4, Eos # (Auto) 0.0, Baso # (Auto) 0.0, Sodium 140, Potassium 4.0, Chloride 102, Carbon Dioxide 29, Anion Gap 13.0, BUN 10, Creatinine 0.70, Estimated Creat Clear 130, Estimated GFR 103, Est GFR ( Amer) 124, Glucose 94, Calcium 8.8, Magnesium 1.9, Total Bilirubin 0.3, AST 24, ALT 16, Alkaline Phosphatase 73, Troponin I < 0.01, NT-Pro-B Natriuret Pep 52.4, Total Protein 7.7, Albumin 4.5, Lipase 54 04/17/25 18:30: Group A Strep Rapid Negative 04/17/25 18:11 04/17/25 18:11 Orders (Tests/Meds): ED MEDICATIONS Generic Name Dose Route Start Last Admin Trade Name Freq PRN Reason Stop Dose Admin Sodium Chloride 1,000 mls @ 999 mls/hr 04/17/25 18:07 04/17/25 18:28 Sod Chlor 0.9% 1000ml Bag IV 04/17/25 19:07 999 mls/hr .Q1H1M ONE Administration ORDERS Category Date Time Status XR chest portable Stat Exams 04/17/25 17:59 Completed Complete Blood Count Auto Diff Stat Lab 04/17/25 18:11 Completed Comprehensive Metabolic Panel Stat Lab 04/17/25 18:11 Results HIV Combo Stat Lab 04/17/25 18:11 Received Hepatitis C Ab Qual. W/ RFX Stat Lab 04/17/25 18:11 Received Lipase Stat Lab 04/17/25 18:11 Results Magnesium Stat Lab 04/17/25 18:11 Results Mini Respiratory Panel Stat Lab 04/17/25 17:56 Received NT Pro Brain Natriuretic Pep. Stat Lab 04/17/25 18:11 Completed Strep Scrn Group A (Rapid) Stat Lab 04/17/25 18:30 Completed Troponin I Q3H Lab 04/17/25 21:15 Ordered Troponin I Q3H Lab 04/18/25 00:15 Ordered Troponin I Stat Lab 04/17/25 18:11 Results Urinalysis and Microscopic Stat Lab 04/17/25 18:04 Completed Urine , HCG Qual. Stat Lab 04/17/25 17:56 Completed Strep Screen Confirmation Stat Micro 04/17/25 18:30 Received Urine Culture Stat Micro 04/17/25 18:04 Received Medical Decision Narrative: 24-year-old female presents the emergency department with URI type symptomatology, myalgias and lightheadedness, see HPI for detailed past medical history, differential diagnose include but not limited to cardiac arrhythmia, electrolyte disturbance, hypovolemia, acute UTI, viral URI, acute bronchitis, panic attack, anxiety reaction, pneumonia among others I discussed this patient's case with the attending physician Dr. Cedeño. Will obtain basic laboratory studies, lipase magnesium level mini respiratory panel, streptococcal rapid antigen swab, proBNP, troponin, UA, urine , CXR, will give 1 L IV NS CBC grossly unremarkable Urine hCG qualitative negative CMP unremarkable proBNP and troponin within normal limits. Group A rapid strep negative UA is noted for positive nitrites, no WBCs, 10-12 squamous epithelial cells and 1+ bacteria. I reviewed the patient's chest x-ray along the corresponding radiologic report, commendation of findings such as viral process versus reactive areas without evidence of consolidation. Wells criteria negative, thus low risk for VTE/PE, no tachycardia, no decrease in SpO2, low risk for PE. I discussed the results with the patient the bedside patient is in agreement with the current discharge plan/treatment plan, patient's mini respiratory panel is pending, however would not exchange specialist, shared decision making was utilized, patient would like to be discharged home to self-care I think this is appropriate. Will call patient with respiratory panel results. Will treat the patient for a viral URI and UTI. Patient once again has remained hemodynamically stable without her time in the emergency department. Patient was given strict ED return precautions. Does not have any true vertiginous type symptomatology, no true presyncopal or syncopal event. Patient voiced understanding and agreement with the current treatment plan/discharge plan. Will treat the patient with 4 mg p.o. sublingual Zofran as well as 100 mg p.o. Macrobid twice daily for 5 days for UTI. Critical Care Critical Care Time Critical Care Time: No
--- OUTSIDE RECORDS SUMMARY | 2025-04-17 17:58 | XMS_ITS | Clinical Summary ---
Author Organization [facility] Address [address] [place] [address] Care Team Providers Care Cribber Name Role Phone Ryanne Heath CRISTEL Primary Care Provider [phone] Allergies Active Allergy Reactions Criticality Noted Date Comments Azithromycin Hives Medium 08/29/2017 Cefuroxime Hives Medium 08/29/2017 Doxycycline GI Intolerance Low 08/29/2017 Guaifenesin-Dm Hives Medium 08/29/2017 Medications albuterol (PROVENTIL HFA;VENTOLIN HFA) 108 (90 Base) MCG/ACT inhaler Inhale 2 puffs Every 4 (Four) Hours As Needed for Wheezing. Active Social History Tobacco Use Types Packs/Day Years Used Date Smoking Tobacco: Never Assessed Abuse Screen Answer Date Recorded Unsafe at Home or Work/School Not on file Feels Threatened by Someone? Not on file 05/2023 Does Anyone Keep You from Co ntacting Others or Doint Things Outside the Home? Not on file 03/15/2023 Physical Sign of Abuse Present Not on file 1 Housing Stability Answer Date Recorded Current Living Arrangements Not on file 03/04 Potentially Unsafe Housing Conditions Not on leonor e 03/15/2023 Family and Community Support Answer Jaciel e Recorded Help with Day-to-Day Activities Not on file 03/15/2023 Lonely or Isolated Not on file 03/15/2023 Employment Answer Date Recorded Do you want help finding or keeping work or a nely b? Not on file 03/15/2023 Disabilities Answer Date Recorded Concentrating, Remembering, or Making Decisions Difficulty Not on file 03/15/2023 Doing Errands Independently Difficulty Not on fi le 03/15/2023 Education Answer Date Recorded Help with school or training? Not on file Preferred Language Not on file 03/15/2023 Comments No Sex and Gender Information Value Date Recorded Sex Assigned at Not on file Legal Sex Female 3:46 PM EDT Gender Identity Not on file Sexual Orientation Not on file Last Filed Vital Signs Vital Sign Reading Time Taken Comments Blood Pressure - - Pulse 82 08/29/2017 4:26 PM EDT Temperature 37.3 C (99.1 F) 08/29/2017 4:26 PM EDT Respiratory Rate - - Oxygen Saturation 98% 08/29/2017 4:26 PM EDT Inhaled Oxygen Concentration - - Weight 54 kg (119 lb) 08/29/2017 4:26 PM EDT Height 165.1 cm (5' 5 ) 08/29/2017 4:26 PM EDT Body Mass Index 19.8 08/29/2017 4:26 PM EDT Plan of Treatment Health Maintenance Due Date Last Done Comments Annual Gynecologic Pelvic an d Breast Exam 2000 HPV VACCINES (1 - 3-dose series) 08/22/2015 ANNUAL PHYSICAL 08/29/2017 HEPATITIS C SCREENING 08/29/2017 TDAP/TD VACCINES (1 - Tdap) 08/22/2019 INFLUENZA VACCINE 01/02/2025 MENINGOCOCCAL B VACCINE Aged Out No l onger eligible based on patient's age to complete this topic Pneumococcal Vaccine 0-49 Aged Out No longer eligible based on patient's age to complete this topic Insurance Care Teams Cribber Relationship Specialty Start Date End Date Ryanne Heath APRN [address] [place] [address] PCP - General Family Medicine 08/29/17
--- OUTSIDE RECORDS SUMMARY | 2025-04-17 17:58 | XMS_ITS | Continuity of Care Document ---
Author Organization [place] [employer], [facility] Address [address] [place] [id number] Care Team Providers Care Deputy Bailiff Name Role Phone XIOMARA FAN Primary Care Provider Unavailabl e Assessment No assessment recorded. Plan of Treatment Reminders Order Date Submit Date Provider Last Modified By Organization Details Last Modified Time Details Appointments None recorded. Lab None recorded. Referral None recorded. Procedures None recorded. Surgeries None recorded. Imaging None recorded. Medication Orders cyclobenzap rine 5 mg tablet 2024 [facility], [address] [place] [address], [id number], 15:51:49 meloxicam 15 mg tablet 2024 025 [facility], [address] [place] [address], [id number], 15:51:48 prednisone 20 mg tablet 2024 025 [facility], [address] [place] [address], [id number], 05:01:58 Patient TargetsNo targets recorded. Patient InstructionsNo instructions recorded. Reason for Referral None Reported. Results Created Date Observation Date Name Description Value Unit Range Abnormal Flag Note LastModifiedBy Organization Detail LastModifiedTime 03/16/20 25 XR, lumbo sacra l spine , 2 or 3 view No observ ation record ed. [address], [address], 03/16/2025 22:15:15 Result Notes None recorded. Problems Name Problem SNOMED Code Status Onset Date Resolution Date Notes Provider Name and Address Organization Details Recorded Time Bilatera l earache 154533286 Completed 201606/28/2016 Not Available [facility] 2 20:51:27 Acute pharyngi tis 318452376 Completed 201608/13/2016 Problem Code: J02.8; Problem Code Type: ICD-10; EDMUND johnson [employer]. 2 15:29:28 Generali zed abdomina l pain 535766219 Completed 201608/13/2016 Problem Code: R10.84; Problem Code Type: ICD-10; Not Available [facility] 2 20:51:31 Fever 134875266 Completed 201605/09/2022 Problem Code: R50.81; Problem Code Type: ICD-10; Almaz johnson [employer]. 4 16:54:07 Otogenic otalgia 26022259 Completed 201606/28/2016 Problem Code: 388.71; Problem Code Type: ICD-9; Not Available [facility] 2 20:51:40 Nausea and vomiting 84359634 Completed 201606/28/2016 Problem Code: R11.2; Problem Code Type: ICD-10; EDMUND johnson [employer]. 2 15:29:27 Moderate major depressi on, single episode 91923368 Active 2016 Problem Code: F32.1; Problem Code Type: ICD-10; Not Available [facility] 2 20:51:28 Depressi ve disorder 32703600 Active 2016 Problem Code: 311; Problem Code Type: ICD-9; Not Available [facility] 2 20:51:40 Otalgia of left ear Completed 201610/04/2016 EDMUND johnson [employer]. 2 15:29:27 Acute pharyngi tis 208236737 Completed 201611/19/2016 Problem Code: J02.8; Problem Code Type: ICD-10; [employer] 2 15:29:28 Non-supp urative otitis media 567126086 Completed 201612/05/2019 Not Available [facility] 2 20:51:34 Otogenic otalgia 49499546 Completed 201610/04/2016 Problem Code: 388.71; Problem Code Type: ICD-9; Not Available [facility] 2 20:51:42 Urinary tract infectio us disease 19864680 Completed 201602/19/2017 Problem Code: N39.0; Problem Code Type: ICD-10; [facility] 2 15:29:28 Breast lump 99291724 Completed 201612/05/2019 Problem Code: N63; Problem Code Type: ICD-10; Not Available [facility] 2 20:51:40 Acute pharyngi tis 522207620 Completed 201603/19/2017 Problem Code: J02.8; Problem Code Type: ICD-10; EDMUND johnson, [employer]. 2 15:29:28 Generali zed abdomina l pain 748045397 Completed 201602/01/2017 Problem Code: R10.84; Problem Code Type: ICD-10; Not Available [facility] 2 20:51:32 Otalgia of left ear Completed 201602/01/2017 [facility]ONATAN [facility] 2 15:29:27 Otogenic otalgia 59268378 Completed 201602/01/2017 Problem Code: 388.71; Problem Code Type: ICD-9; Not Available [facility] 2 20:51:41 Infectio us enteriti s of intestin e 17229819 Completed 201605/20/2017 Problem Code: A09; Problem Code Type: ICD-10; Not Available [facility] 2 20:51:26 Nausea 467274596 Completed 201604/04/2017 Problem Code: R11.0; Problem Code Type: ICD-10; Hanh Ty, [employer]ICER [address] [place], [address] , [employer] 5 14:33:38 Nausea and vomiting 26908855 Completed 201604/04/2017 Problem Code: R11.2; Problem Code Type: ICD-10; EDMUND johnson, [employer] 2 15:29:27 Colitis, enteriti s and gastroen teritis presumed infectio us 688946140 Completed 201605/20/2017 Problem Code: 009.1; Problem Code Type: ICD-9; Not Available [facility] 2 20:51:39 Melena 9413276 Completed 201604/16/2017 Problem Code: K92.1; Problem Code Type: ICD-10; Not Available [facility] 2 20:51:28 Hematoch ezia 807407010 Completed 201604/16/2017 Problem Code: 578.1; Problem Code Type: ICD-9; Not Available [facility] 2 20:51:42 Influenz a 3560746 Completed 201708/11/2017 Problem Code: J10.1; Problem Code Type: ICD-10; Not Available [facility] 2 20:51:28 Influenz a with respirat ory manifest ation other than pneumoni a Completed 201708/11/2017 Problem Code: 487.1; Problem Code Type: ICD-9; Not Available [facility] 2 20:51:41 Spasmodi c torticol lis 94170137 Completed 201709/24/2017 Problem Code: G24.3; Problem Code Type: ICD-10; Not Available [facility] 2 20:51:30 Gastroes ophageal reflux disease 337834071 Completed 201711/18/2020 Problem Code: 530.81; Problem Code Type: ICD-9; Not Available [facility] 2 20:51:44 Knee pain Completed 201708/27/2017 Not Available [facility] 20:51:29 Heartbur n 17704085 Completed 201710/09/2017 Problem Code: R12; Problem Code Type: ICD-10; Not Available [facility] 2 20:51:31 Pain in right knee Completed 201701/18/2018 Problem Code: M25.561; Problem Code Type: ICD-10; Not Available [facility] 2 20:51:29 Knee pain Completed 201701/18/2018 Problem Code: 719.46; Problem Code Type: ICD-9; Not Available [facility] 2 20:51:43 Irritabl e bowel syndrome 30685318 Completed 201711/18/2020 Problem Code: 564.1; Problem Code Type: ICD-9; Not Available [facility] 2 20:51:41 Nausea and vomiting 37400761 Completed 201701/31/2018 Problem Code: R11.2; Problem Code Type: ICD-10; EDMUND johnson [facility] [employer] [facility]. 2 15:29:27 Generali zed anxiety disorder 25131675 Completed 201711/18/2020 Problem Code: 300.02; Problem Code Type: ICD-9; Not Available [facility] 2 20:51:49 Generali zed anxiety disorder 10241784 Active 2017 Problem Code: F41.1; Problem Code Type: ICD-10; Not Available [facility] 2 20:51:27 Acute gastriti s 29320680 Completed 201704/09/2018 Problem Code: K29.00; Problem Code Type: ICD-10; Not Available [facility] 2 20:51:28 Nausea and vomiting 73481626 Completed 201702/22/2018 Problem Code: R11.2; Problem Code Type: ICD-10; EDMUND johnson, [employer] 2 15:29:27 Acute pharyngi tis 416000280 Completed 201704/09/2018 Problem Code: J02.8; Problem Code Type: ICD-10; EDMUND johnson, [employer] 2 15:29:28 Migraine with aura 8254559 Completed 201711/18/2020 Problem Code: 346.00; Problem Code Type: ICD-9; Not Available [facility] 2 20:51:41 Diarrhea 50168826 Completed 201704/25/2018 Problem Code: R19.7; Problem Code Type: ICD-10; Not Available [facility] 2 20:51:32 Nausea and vomiting 75489312 Completed 201712/05/2019 Problem Code: R11.2; Problem Code Type: ICD-10; EDMUND johnson, [employer] 2 15:29:27 Acute pharyngi tis 832475608 Completed 201707/13/2018 Problem Code: J02.8; Problem Code Type: ICD-10; EDMUND johnson, [employer] 2 15:29:28 Otalgia of left ear Completed 201812/05/2019 EDMUND SALAZARNER elizabeth, [employer] 2 15:29:27 Disorder of upper respirat ory system 013314891 Completed 201805/09/2022 Problem Code: J39.9; Problem Code Type: ICD-10; EDMUND johnson, [employer] 2 15:29:27 Otalgia of left ear Completed 201805/09/2022 EDMUND SALAZARNER elizabeth, [employer] 2 15:29:27 Dysmenor ronda 975524746 Active 2018 Not Available [facility] 2 20:51:30 Generali zed abdomina l pain 842506603 Completed 201811/18/2020 Problem Code: R10.84; Problem Code Type: ICD-10; Not Available [facility] 2 20:51:31 Urinary tract infectio us disease 83600720 Completed 201805/09/2022 Problem Code: N39.0; Problem Code Type: ICD-10; EDMUND johnson, [employer] 2 15:29:28 Dysuria 20516162 Completed 201805/09/2022 Problem Code: R30.0; Problem Code Type: ICD-10; Almaz johnson, [employer]. 4 14:10:39 Nausea and vomiting 10844685 Completed 201805/09/2022 Problem Code: R11.2; Problem Code Type: ICD-10; EDMUND johnson, [employer] 2 15:29:27 Vaginola bial hernia Completed 201805/09/2022 Problem Code: N89.8; Problem Code Type: ICD-10; EDMUND johnson, [employer] 2 15:29:27 Uses depot contrace ption 522574842 Completed 201811/18/2020 Not Available [facility] 2 20:51:36 Urinary tract infectio us disease 60315036 Completed 201912/05/2019 Problem Code: N39.0; Problem Code Type: ICD-10; EDMUND johnson, [employer] 2 15:29:28 Tachycar mark 9905389 Active 2019 Not Available [facility] 2 20:51:30 Dysuria 33397555 Completed 201912/05/2019 Problem Code: R30.0; Problem Code Type: ICD-10; Almaz johnson, [employer] 4 14:10:39 Body mass index 20-24 - normal 253632228 Completed 201911/18/2020 Not Available [facility] 2 20:51:37 Acute pharyngi tis 859967033 Completed 201912/05/2019 EDMUND johnson, [employer]. 2 15:29:28 Pyrexia of unknown origin 7722525 Completed 201912/05/2019 Problem Code: R50.9; Problem Code Type: ICD-10; Not Available [facility] 2 20:51:33 Natural contrace ption educatio n Completed 201911/18/2020 Problem Code: Z31.61; Problem Code Type: ICD-10; Not Available [facility] 2 20:51:36 Body mass index 20-24 - normal 048118144 Completed 201911/18/2020 Not Available [facility] 2 20:51:38 Finding of body mass index 843534240 Completed 201911/18/2020 Problem Code: Z68.1; Problem Code Type: ICD-10; Not Available [facility] 2 20:51:37 High risk heterose xual behavior 48118650884 9101 Completed 201905/09/2022 Problem Code: Z72.51; Problem Code Type: ICD-10; EDMUND johnson, [employer] 2 15:29:27 Chronic fatigue syndrome 01576062 Completed 201902/11/2021 Problem Code: R53.82; Problem Code Type: ICD-10; Not Available [facility] 2 20:51:33 Syncope and collapse 820075930 Completed 201911/18/2020 Problem Code: R55; Problem Code Type: ICD-10; Not Available [facility] 2 20:51:34 Choleste rol screenin g Completed 201905/09/2022 EDMUND johnson, [employer]. 2 15:29:27 Body mass index 20-24 - normal 800932098 Active 2019 Not Available [facility] 2 20:51:37 Candidia sis of vulva 6862781 Completed 201911/18/2020 Not Available [facility] 2 20:51:27 Urinary tract infectio us disease 05467517 Completed 201911/18/2020 Problem Code: N39.0; Problem Code Type: ICD-10; EDMUND johnson, [employer]. 2 15:29:28 Vegan's anemia 819907568 Active 2020 Problem Code: D51.3; Problem Code Type: ICD-10; Not Available [facility] 2 20:51:27 Vitamin D deficien cy 99304301 Active 2020 Problem Code: E55.9; Problem Code Type: ICD-10; Not Available [facility] 2 20:51:27 Finding of general energy 645264678 Completed 202005/09/2022 Problem Code: R53.83; Problem Code Type: ICD-10; EDMUND johnson, [employer]. 2 15:29:27 Body mass index 20-24 - normal 147791243 Completed 202011/18/2020 Not Available [facility] 2 20:51:39 General examinat ion of patient Completed 202002/11/2021 Not Available [facility] 2 20:51:35 Syphilis test finding 389417973 Completed 202002/11/2021 Problem Code: Z11.3; Problem Code Type: ICD-10; Not Available [facility] 2 20:51:35 Candidia sis of vulva 9516223 Completed 202004/12/2021 Not Available [facility] 2 20:51:26 Urinary tract infectio us disease 49929876 Completed 202004/12/2021 Problem Code: N39.0; Problem Code Type: ICD-10; EDMUND johnson, [employer]. 2 15:29:28 Migraine without aura 05065299 Active 2020 Problem Code: G43.009; Problem Code Type: ICD-10; Not Available [facility] 2 20:51:27 Vomiting 074706383 Completed 202005/09/2022 EDMUND johnson, [employer] 2 15:29:28 Acute pharyngi tis 627967687 Completed 202107/29/2021 EDMUND JOHNSON null, [employer] 2 15:29:28 Influenz a with gastroin testinal tract involvem ent 341764819 Completed 202105/09/2022 Problem Code: J10.2; Problem Code Type: ICD-10; EDMUND johnson, [employer] 2 15:29:27 COVID-19 434692506 Completed 202107/29/2021 Problem Code: U07.1; Problem Code Type: ICD-10; Not Available [facility] 2 20:51:34 Acute pharyngi tis 615921409 Completed 202105/09/2022 EDMUND johnson, [employer] 2 15:29:28 Myositis 71497848 Completed 202105/09/2022 Problem Code: M60.9; Problem Code Type: ICD-10; EDMUND johnson, [employer] 2 15:29:27 Acute sinusiti s 61146439 Active 2023 LUC HOLLAND, [address], [address] , [employer]. 4 14:41:13 Dysuria 58131158 Active 2023 Problem Code: R30.0; Problem Code Type: ICD-10; Almaz johnson, [employer] 4 14:10:39 Fever 159704804 Active 2023 Problem Code: R50.81; Problem Code Type: ICD-10; Almaz johnson, [employer]. 4 16:54:07 Influenz a caused by Influenz a A virus 660386609 Active 2024 Hanh Ty, [employer]IDENT MED[employer] OFFICER [address] [place] [address], [address] , [employer] 5 14:33:34 Nausea 175785162 Active 2024 Problem Code: R11.0; Problem Code Type: ICD-10; Hanh Ty, [employer]IDENT MED[employer] OFFIC[employer] [address] [place] [address], [phone] , [employer]. 5 14:33:38 Immune system finding 889822112 Active 2024 Almaz johnson, [employer]. 5 13:17:10 Lumbar radiculo adwoa 830334023 Active 2024 Deann Mayen APRN [address] [place] [address], [phone] , [employer]. 5 14:59:24 Problem Notes None recorded. Procedures Surgical History Date Name Laterality Status Provider Name and Address Organization Details Recorded Time 02/08 Date of Last Pap Smear completed EDMUND JOHNSON [employer]. 2 15:29:43 03/21 tonsillectomy and adenoidectomy completed Not Available [facility] 2 22:56:07 06/14 tympanostomy completed Not Available [facility] 2 22:56:07 esophagogastroduodenoscopy completed [facility] 4 14:08:57 extraction of wisdom tooth completed [facility] 4 14:09:05 Imaging Results None recorded. Procedure Notes None recorded. Medical Equipment None Reported. Allergies Allergen ID Allergen Name Allergen Category Reaction Reaction Severity Criticality Documentation Date Start Date Code Code System Note Provider Name and Address Organization Details Recorded Time 66263 chlorphen iramine / hydrocodo ne / pseudoeph edrine medicatio n Not available Not available Not available 02/07/2022 49950 4 RxNorm EDMUND johnson, [employer] 2 15:23:05 25698 brompheni ramine / pseudoeph edrine medicatio n Not available Not available Not available 02/07/2022 79713 6 RxNorm EDMUND SALAZARNER elizabeth, [employer] 2 15:23:08 69014 Substance with tetracycl ine structure (substanc e) medicatio n Not available Not available Not available 02/07/2022 18218 8001 SNOMED EDMUND johnson, [employer] 2 15:23:11 69169 azithromy kunal medicatio n Not available Not available Not available 02/07/2022 05845 RxNorm Not Available [facility] 2 22:57:03 12035 Ceftin medicatio n Not available Not available Not available 02/07/2022 03036 6 RxNorm Not Available [facility] 2 22:57:03 Medications Name Sig Start Date Stop Date Status Note LastModified by Organization Details LastModified Time amoxicillin 500 mg capsule TAKE 1 CAPSULE BY MOUTH TWICE DAILY 03/05 completed Not Available Not Available Not Available [...] mg tablet TAKE ONE TABLET BY MOUTH daily active Not Available Not Available No t Available azithromyci n 250 mg tablet Take 2 tablet(s) by mouth on day 1 then 1 tablet every day for the next 4 days. 07/04 completed Not Available Not Available Not Available tizanidine 4 mg tablet 1 po bid 09/24 completed Not Available Not Available Not Available fluconazole 150 mg tablet TAKE 1 TABLET BY MOUTH every 3 days for 2 doses 03/05 completed Not Available Not Available Not Available benzonatate 200 mg capsule Take 1 capsule 3 times a day by oral route. 08/26 completed Not Available Not Available Not Available sumatriptan 100 mg tablet 1 tablet PO for migraine, may repeat in 2 hours if needed. 05/25 completed Not Available Not Available Not Available meloxicam 15 mg tablet TAKE 1 TABLET BY MOUTH EVERY DAY NEEDED FOR BACK pain 03/16 completed Not Available Not Available Not Available [...] day by oral route for 3 days. 03/15 completed Not Available Not Available Not Available metronidazo le 500 mg tablet TAKE ONE TABLET BY MOUTH TWICE DAILY FOR SEVEN DAYS 09/22 completed Not Available Not Available Not Available phentermine 37.5 mg tablet TAKE ONE TABLET BY MOUTH EVERY DAY 03/16 completed Not Available Not Available Not Available dextrometho rphan-guaif enesin 10 mg-100 mg/5 [...] completed Not Available Not Available Not Available ketorolac 30 mg/mL (1 mL) injection solution Inject 1 mL every 6 hours by intramusc ular route. 2024 active Not Available Not Available Not Avai lable hydrocortis one acetate 25 mg rectal suppository [...] completed Not Available Not Available Not Available diclofenac sodium 50 mg tablet,amy yed release TAKE 1 TABLET BY MOUTH TWICE DAILY with MEAL FOR BACK pain active Not Available Not Available No t Available ergocalcife rol (vitamin D2) 1,250 mcg [...] completed Not Available Not Available Not Available cyclobenzap rine 5 mg tablet TAKE 1 TABLET BY MOUTH 3 TIMES DAILY NEEDED FOR BACK pain 03/16 completed Not Available Not Available Not Available [...] Available Not Available Vitals Date Recorded Body mass index (BMI) Body weight Heart rate Oxygen saturation Oxygen saturation in Arterial blood by Pulse oximetry Systolic And Diastolic Provider Name and Address Organization Details Last Updated DateTime 25.7 kg/m2 51984 g 85 /min 98 % 98 % 110/45 mm[Hg] Almaz Kohler [employer]. 10:11:19 Date Recorded Body height Provider Name an d Address Organization Details Last Updated DateTime 03/05/2025 166.37 cm Dinora Adams [employer]. 03/05/2025 09:59:06 Social History Question Answer Notes LastModified by Organizat ion Details LastModified Time Tobacco Smoking Status Never Smoker EDMUND johnson [employer] 05/09/2022 15:30:51 Do You Have An Advance Directive? No [email or web address] Information n ot available 08/30/2023 Is Your Home Air Conditioned? Yes Information not available 10/02/2022 Do You Wear A Helmet When Biking? No [email or web address] Information not available 07/04/2024 Are You Blind Or Do You Have Difficulty Seeing? No [email or web address] Information n ot available 05/09/2022 What Is Your Level Of Caffeine Consumption? Heavy Information not available 10/13/2022 Are You A Caregiver? Yes [email or web address] Information not available 05/09/2022 What Type Of Sdc Teacher Do You Use? None Information not available 08/30/2023 In The 14 Days Before Symptom Onset, Have You Had Close Contact With A Laboratory-confirm ed COVID-19 While That Case Was Ill? No [email or web address] Information n ot available 05/09/2022 In The 14 Days Before Symptom Onset, Have You Had Close Contact With A Person Who Is Under Investigation For COVID-19 While That Person Was Ill? No [email or web address] Information not available 05/09/2022 Have You Been To An Area Known To Be High Risk For COVID-19? No [email or web address] Information not available 05/09/2022 Are You Deaf Or Do You Have Serious Difficulty Hearing? No [email or web address] Information not available 05/09/2022 What Type Of Diet Are You Following? REGULAR [email or web address] Information n ot available 07/04/2024 Have There Been Any Changes To Your Family Or Social Situation? No [email or web address] Information no t available 08/30/2023 Do You Have A Medical Power Of Coating Supervisor? No [email or web address] Information not available 08/30/2023 What Was The Date Of Your Most Recent Tobacco Screening? 03/16/2025 Information not available 03/16/2025 Have You Ever Been Counseled For Unhealthy Alcohol Use? No Information not available 10/13/2022 What Is Your Relationship Status? Single [email or web address] Information not available 05/09/2022 Do You Use Your Seat Belt Or Car Seat Routinely? Yes Information not available 10/02/2022 Are You Sexually Active? No Information not available 07/04/2024 Do You Have Smoke And Carbon Monoxide Detectors In Your Home? Yes Information not available 10/02/2022 Are You Passively Exposed To Smoke? No Information no t available 10/02/2022 Are There Any Smokers In Your House? No Information not available 10/02/2022 Do You Participate In Social Media? Yes [email or web address] Information not available 07/04/2024 Do You Use Sunscreen Routinely? No Information not available 10/02/2022 Have You Recently Traveled Abroad? No [email or web address] Information not available 05/09/2022 Do You Have Difficulty Walking Or Climbing Stairs? No [email or web address] Information not available 05/09/2022 Are You Currently In School? No Information not available 10/02/2022 Do You Have Any Dietary Restrictions? No [email or web address] Information not available 07/04/2024 Sex: Female Functional Status Question Answer Note LastModified by Organizat ion Details LastModified Time Do you use any illicit or recreational drugs? No Information not available 10/13/2022 Do you or have you ever used any other forms of tobacco or nicotine? No Information not available 05/01/2023 What is your level of alcohol consumption? None [email or web address] Information not available 08/30/2023 Are you currently employed? No [email or web address] Information not available 08/30/2023 Do you have transportation difficulties? No [email or web address] Information not available 05/09/2022 Are you able to walk independently without assistance or assistive devices? YESWOREST [email or web address] Information not available 05/09/2022 Do you have difficulty doing errands alone? No [email or web address] Information not available 05/09/2022 Are you able to care for yourself independently? Yes [email or web address] Information not available 05/09/2022 Do you have difficulty dressing, bathing, grooming, or toileting? No [email or web address] Information not available 05/09/2022 What is your exercise level? Moderate [email or web address] Information not available 08/26/2024 Mental Status Question Answer Note LastModified by Organizat ion Details LastModified Time Do you feel stressed (tense, restless, nervous, or anxious, or unable to sleep at night)? [id number] [email or web address] Information not available 07/04/2024 Do you have difficulty concentrating, remembering or making decisions? No [email or web address] Information no t available 05/09/2022 Family History Relationship Description Onset Age of this Age Resolved Age Notes LastModified by Organization Details LastModified Time Unspecified Relation Family history of Hypertension [email or web address] Not available 15:30:20 Unspecified Relation Family history of drug abuse [email or web address] Not available 11/2021 15:30:22 Medical History Condition Response Hospitalizations N ADD/ADHD N Emergency room visit since last appointm ent. N Gynecological History Statement/Question Response Menses Monthly N HPV Vaccine Y Date of Last Pap Smear 02/08/2022 Current Control Method [employer] a Most Recent Mammogram Obstetrics History GPAL:G 0 P 0 0 0 0 Immunizations Vaccine Type Date Status Note Provider Nam e and Address Organization Details Recorded Time Influenza, split virus, quadrivalent, PF 3 completed Deann Mayen, [employer] [address] [place], [address], [employer] 03/21/2023 17:48:59 HPV9 8 completed Almaz johnson, [employer] 01/07/2024 13:32:40 varicella 2 completed Not Available [facility] 02/07/2022 23:08:40 varicella 3 completed Not Available [facility] 02/07/2022 23:08:40 MMR 5 completed Not Available [facility] 02/07/2022 23:08:40 MMR 2 completed Not Available [facility] 02/07/2022 23:08:40 Hep B, adolescent or pediatric 1 completed Not Available [facility] 02/07/2022 23:08:40 IPV 2 completed Not Available [facility] 02/07/2022 23:08:41 IPV 5 completed Not Available [facility] 02/07/2022 23:08:41 IPV 1 completed Not Available [facility] 02/07/2022 23:08:41 IPV 1 completed Not Available [facility] 02/07/2022 23:08:41 Hep A, ped/adol, 2 dose 8 completed Almaz johnson [employer] 01/07/2024 13:32:41 Hep A, ped/adol, 2 dose 3 completed Not Available [facility] 02/07/2022 23:08:41 Tdap 3 completed Not Available [facility] 02/07/2022 23:08:41 meningococcal MCV4P 8 completed Almaz [place] null, [employer] 01/07/2024 13:32:41 HPV, quadrivalent 3 completed Not Available [facility] 02/07/2022 23:08:42 HPV, quadrivalent 3 completed Not Available [facility] 02/07/2022 23:08:42 DTaP 5 completed JONNATHAN MOMIN null, [employer] 08/30/2023 13:56:23 DTaP 1 completed JONNATHAN MOMIN null, [employer] 08/30/2023 13:56:23 DTaP 1 completed JONNATHAN MOMIN null, [employer] 08/30/2023 13:56:23 DTaP 1 completed JONNATHAN MOMIN null, [employer] 08/30/2023 13:56:23 DTaP 2 completed JONNATHAN MOMIN null, [employer] 08/30/2023 13:56:23 meningococcal MCV4P 3 completed JONNATHAN MOMIN null, [employer] 08/30/2023 13:56:23 Hib (PRP-OMP) 1 completed Not Available [facility] 02/07/2022 23:08:43 pneumococcal conjugate PCV 7 2 completed Not Available [facility] 02/07/2022 23:08:43 pneumococcal conjugate PCV 7 1 completed Not Available [facility] 02/07/2022 23:08:44 pneumococcal conjugate PCV 7 1 completed Not Available [facility] 02/07/2022 23:08:44 pneumococcal conjugate PCV 7 1 completed Not Available [facility] 02/07/2022 23:08:44 Hib-Hep B 2 completed Not Available [facility] 02/07/2022 23:08:44 Hib-Hep B 1 completed Not Available [facility] 02/07/2022 23:08:44 Influenza, split virus, quadrivalent, PF 0 completed EDMUNDJONATAN JOHNSON null, [employer] 05/09/2022 15:22:58 meningococcal MCV4, unspecified formulation 3 completed EDMUNDJONATAN JOHNSON null, [employer] 07/25/2022 14:15:24 Influenza, split virus, trivalent, PF 5 completed Almaz Kohler null, [employer] 03/05/2025 11:37:36 Meningococcal MCV4O 3 completed JONNATHANARSLAN MOMIN null, [employer] 08/30/2023 13:56:23 DTaP, unspecified formulation 5 completed JONNATHANMOMO MOMIN null, [employer] 08/30/2023 13:56:23 DTaP, unspecified formulation 1 completed JONNATHANMOMO MOMIN null, [employer] 08/30/2023 13:56:23 DTaP, unspecified formulation 1 completed JONNATHAN MOMIN null, [employer] 08/30/2023 13:56:23 DTaP, unspecified formulation 1 completed JONNATHAN MOMIN null, [employer] 08/30/2023 13:56:23 DTaP, unspecified formulation 2 completed JONNATHAN MOMIN null, [employer] 08/30/2023 13:56:23 Tdap 3 completed Not Available [facility] 03/16/2025 14:30:32 Past Encounters Encounter ID Performer Location Encounter Start Date Encounter Closed Date Diagnosis/Indication Diagnosis SNOMED-CT Code Diagnosis ICD10 Code Diagnosis IMO Codes Diagnosis Note [id number] Xiomara Fan APRN [address] [address] 03/05/2025 09:51:13 03/05/2025 10:56:56 Acute low back pain 895286650 M54.50 [id number] Requires i nfluenza virus vaccination 353848445 Z23 [id number] Overweight in adulthood with body mass index of 25 or more but less than 30 303371131 Z68.25 999421 Health Concerns Section Related Observation LastModified by Organization Detai ls LastModified Time None Recorded Concern Status LastModified by Organization Details LastModified Time None Recorded Payers Encounter Date Sequence Insurance Name Policy Number Policy Anton Covered Member ID Anton Member ID Guarantor Name 03/05/2025 1 [employer] [facility] (MEDICAID HMO) Noy Hines [id number] Noy Hines Notes Date Note Type Note Provider Name and Address Organization Details Recorded Time 03/05/2025 text/html pt here today with c/o low back pain x4 days. pt states that she was trying to lift her child in the back of a 3rd row car and when she did she felt pain and a burning sensation. states that the burning sensation stopped but the pain is still there. worse when she bends over and she has taken naproxen OTC and it helps for a little bit but then it comes back. denies numbness or tingling, loss of bowel or bladder. on exam, limited ROM and some tenderness to palpitation. i will order some steroids, meloxicam and muscle relaxer. if not better within 1 week then return for xray. pt voiced understanding. Xiomara Fan APRN [address] [facility], [place], [address], [facility] [employer] 03/05/2025 12:18:54 OBGyn Episode No OBEpisode recorded.
[2025-04-17 17:59] VITALS: BP 122/84; PULSE 67; RESP 14; TEMP 36.6; O2SAT 99; BMI 23.6
--- NOTE | 2025-04-17 17:59 | XR_ITS ---
PROCEDURE INFORMATION: Exam: XR Chest Exam date and time: 04/17/2025 6:23 PM Age: 24 years old Clinical indication: Other: Cough congestion myalgias TECHNIQUE: Imaging protocol: Radiologic exam of the chest. Views: 1 view. COMPARISON: No relevant prior studies available. FINDINGS: Lungs: Central opacities with peribronchial cuffing. No opacities to suggest consolidation. Pleural spaces: Unremarkable. No pleural effusion. No pneumothorax. Heart/Mediastinum: Unremarkable. No cardiomegaly. Bones/joints: Unremarkable. IMPRESSION: Combination of findings that suggests viral process versus reactive airways without evidence of consolidation.
--- OUTSIDE RECORDS SUMMARY | 2025-04-17 17:59 | XMS_ITS | Encounter Summary ---
Author Organization Healthcare Address [address] [place] [address] Care Team Providers Care Workday Consultant Name Role Phone Xiomara Fan APRN Primary Care Provider [phone] Encounter Details Date Type Department Care Team (Late st Contact Info) Description 01/20/2025 Telephone ID Clinic Medicine Specialties [address] [place] [address] Eliana Oconnor MD [address] [place] [address] Social History Tobacco Use Types Packs/Day Years Used Date Smoking Tobacco: Never Smokeless Tobacco: Never PHQ-2 Answer Date Recorded Patient Health Questionnaire-2 Score 0 01/19/2025 AUDIT-C Answer Date Recorded Q1: How often do you have a drink containing alc ohol? Monthly or less 01/19/2025 Average Number of Drinks Not on file 025 Frequency of Binge Drinking Not on file 01/02 Comments Unknown Sex and Gender Information Value Date Recorded Sex Assigned at Not on file Legal Sex Female 9:30 PM EDT Gender Identity Not on file Sexual Orientation Not on file documented as of this encounter Miscellaneous Notes * Telephone Encounter - Lizbet Felix - 01/20/2025 3:58 PM EDT Clinical Concern/Question Reason for Call: Pt states that her results showed a UTI and needs medication called in Best contact number: [phone] (mobile) Optimal time of day to reach caller: ANYTIME Additional comments/information from caller: None Note: Please do not reply to this message. Follow-up communication and further actions as a result of this message need to be communicated with the patient directly, if the patient is not active onMyChart. If the patient is active on MyChart, they will receive notification of the communication/outcome via [employer]. documented in this encounter Plan of Treatment Not on file documented as of this encounter Visit Diagnoses Not on filedocumented in this encounter Additional Health Concerns Assessment Noted Time A fall risk assessment has been complete d for the patient 01/19/2025 2:51 PM EDT A Body Mass Index follow-up plan has been documented for the patient 01/19/2025 3:22 PM EDT documented as of this encounter Care Teams Workday Consultant Relationship Specialty Start Date End Date Xiomara Fan APRN [address] [place] [address] PCP - General 01/19/25 documented as of this encounter
--- OUTSIDE RECORDS SUMMARY | 2025-04-17 17:59 | XMS_ITS | Continuity of Care Document ---
Author Organization [facility], [facility] Address [address] [place] [id number] Care Team Providers Care Revenue Cycle Manager Name Role Phone XIOMARA KHALIL Primary Care Provider Unavailabl e Assessment No assessment recorded. Plan of Treatment Reminders Order Date Submit Date Provider Last Modified By Organization Details Last Modified Time Details Appointments None recorded. Lab None recorded. Referral None recorded. Procedures None recorded. Surgeries None recorded. Imaging XR, lumbosacral spine, 2 or 3 view 2024 [facility], [address] [place] [address], [phone], 16:21:35 Medication Orders ketorolac 30 mg/mL (1 mL) injection solution 2024 [email or web address] Not available 15:32:28 diclofenac sodium 50 mg tablet,amy yed release 2024 [facility], [address] [place] [address], [id number], 17:27:29 Patient TargetsNo targets recorded. Patient InstructionsNo instructions recorded. Reason for Referral None Reported. Results Created Date Observation Date Name Description Value Unit Range Abnormal Flag Note LastModifiedBy Organization Detail LastModifiedTime 03/16/20 25 XR, lumbo sacra l spine , 2 or 3 view No observ ation record ed. [address], [id number], 03/16/2025 22:15:15 Result Notes None recorded. Problems Name Problem SNOMED Code Status Onset Date Resolution Date Notes Provider Name and Address Organization Details Recorded Time Bilatera l earache 295342893 Completed 201606/28/2016 Not Available [facility] 2 20:51:27 Acute pharyngi tis 971016399 Completed 201608/13/2016 Problem Code: J02.8; Problem Code Type: ICD-10; EDMUND johnson [employer]. 15:29:28 Generali zed abdomina l pain 003943561 Completed 201608/13/2016 Problem Code: R10.84; Problem Code Type: ICD-10; Not Available [facility] 2 20:51:31 Fever 078513656 Completed 201605/09/2022 Problem Code: R50.81; Problem Code Type: ICD-10; Almaz johnson, [employer] 4 16:54:07 Otogenic otalgia 61485583 Completed 201606/28/2016 Problem Code: 388.71; Problem Code Type: ICD-9; Not Available [facility] 2 20:51:40 Nausea and vomiting 43986540 Completed 201606/28/2016 Problem Code: R11.2; Problem Code Type: ICD-10; EDMUND johnson [employer] 2 15:29:27 Moderate major depressi on, single episode 01722759 Active 2016 Problem Code: F32.1; Problem Code Type: ICD-10; Not Available [facility] 2 20:51:28 Depressi ve disorder 45566001 Active 2016 Problem Code: 311; Problem Code Type: ICD-9; Not Available [facility] 2 20:51:40 Otalgia of left ear Completed 201610/04/2016 EDMUND johnson [employer] 2 15:29:27 Acute pharyngi tis 528632025 Completed 201611/19/2016 Problem Code: J02.8; Problem Code Type: ICD-10; [employer] 2 15:29:28 Non-supp urative otitis media 693567923 Completed 201612/05/2019 Not Available [facility] 2 20:51:34 Otogenic otalgia 55040469 Completed 201610/04/2016 Problem Code: 388.71; Problem Code Type: ICD-9; Not Available [facility] 2 20:51:42 Urinary tract infectio us disease 66044354 Completed 201602/19/2017 Problem Code: N39.0; Problem Code Type: ICD-10; EDMUND SALAZARNER [employer] 2 15:29:28 Breast lump 40038168 Completed 201612/05/2019 Problem Code: N63; Problem Code Type: ICD-10; Not Available [facility] 2 20:51:40 Acute pharyngi tis 798220378 Completed 201603/19/2017 Problem Code: J02.8; Problem Code Type: ICD-10; EDMUND SALAZARNER elizabeth, [employer] 2 15:29:28 Generali zed abdomina l pain 178360427 Completed 201602/01/2017 Problem Code: R10.84; Problem Code Type: ICD-10; Not Available [facility] 2 20:51:32 Otalgia of left ear Completed 201602/01/2017 EDMUNDJONATAN SALAZARNER [employer] 2 15:29:27 Otogenic otalgia 15078084 Completed 201602/01/2017 Problem Code: 388.71; Problem Code Type: ICD-9; Not Available [facility] 2 20:51:41 Infectio us enteriti s of intestin e 92299116 Completed 201605/20/2017 Problem Code: A09; Problem Code Type: ICD-10; Not Available [facility] 2 20:51:26 Nausea 841199404 Completed 201604/04/2017 Problem Code: R11.0; Problem Code Type: ICD-10; Hanh Ty, K[address] [place], [address] , [employer] 5 14:33:38 Nausea and vomiting 57013277 Completed 201604/04/2017 Problem Code: R11.2; Problem Code Type: ICD-10; EDMUND ELIZABETH johnson, [employer] 2 15:29:27 Colitis, enteriti s and gastroen teritis presumed infectio us 139418752 Completed 201605/20/2017 Problem Code: 009.1; Problem Code Type: ICD-9; Not Available [facility] 2 20:51:39 Melena 0465258 Completed 201604/16/2017 Problem Code: K92.1; Problem Code Type: ICD-10; Not Available [facility] 2 20:51:28 Hematoch ezia 565782816 Completed 201604/16/2017 Problem Code: 578.1; Problem Code Type: ICD-9; Not Available [facility] 2 20:51:42 Influenz a 9028037 Completed 201708/11/2017 Problem Code: J10.1; Problem Code Type: ICD-10; Not Available [facility] 2 20:51:28 Influenz a with respirat ory manifest ation other than pneumoni a Completed 201708/11/2017 Problem Code: 487.1; Problem Code Type: ICD-9; Not Available [facility] 2 20:51:41 Spasmodi c torticol lis 51036337 Completed 201709/24/2017 Problem Code: G24.3; Problem Code Type: ICD-10; Not Available [facility] 2 20:51:30 Gastroes ophageal reflux disease 611417751 Completed 201711/18/2020 Problem Code: 530.81; Problem Code Type: ICD-9; Not Available [facility] 2 20:51:44 Knee pain Completed 201708/27/2017 Not Available [facility] 2 20:51:29 Heartbur n 47908086 Completed 201710/09/2017 Problem Code: R12; Problem Code Type: ICD-10; Not Available [facility] 2 20:51:31 Pain in right knee Completed 201701/18/2018 Problem Code: M25.561; Problem Code Type: ICD-10; Not Available [facility] 2 20:51:29 Knee pain Completed 201701/18/2018 Problem Code: 719.46; Problem Code Type: ICD-9; Not Available [facility] 2 20:51:43 Irritabl e bowel syndrome 19869149 Completed 201711/18/2020 Problem Code: 564.1; Problem Code Type: ICD-9; Not Available [facility] 2 20:51:41 Nausea and vomiting 85175767 Completed 201701/31/2018 Problem Code: R11.2; Problem Code Type: ICD-10; JASON Martinez [employer] 2 15:29:27 Generali zed anxiety disorder 63893043 Completed 201711/18/2020 Problem Code: 300.02; Problem Code Type: ICD-9; Not Available [facility] 2 20:51:49 Generali zed anxiety disorder 82513783 Active 2017 Problem Code: F41.1; Problem Code Type: ICD-10; Not Available [facility] 2 20:51:27 Acute gastriti s 31397896 Completed 201704/09/2018 Problem Code: K29.00; Problem Code Type: ICD-10; Not Available [facility] 2 20:51:28 Nausea and vomiting 88992452 Completed 201702/22/2018 Problem Code: R11.2; Problem Code Type: ICD-10; EDMUND ELIZABETH null, [employer] 2 15:29:27 Acute pharyngi tis 799314208 Completed 201704/09/2018 Problem Code: J02.8; Problem Code Type: ICD-10; EDMUND johnson, [employer] 2 15:29:28 Migraine with aura 2385297 Completed 201711/18/2020 Problem Code: 346.00; Problem Code Type: ICD-9; Not Available [facility] 2 20:51:41 Diarrhea 71984364 Completed 201704/25/2018 Problem Code: R19.7; Problem Code Type: ICD-10; Not Available [facility] 2 20:51:32 Nausea and vomiting 35136999 Completed 201712/05/2019 Problem Code: R11.2; Problem Code Type: ICD-10; EDMUND johnson, [employer] 2 15:29:27 Acute pharyngi tis 887881838 Completed 201707/13/2018 Problem Code: J02.8; Problem Code Type: ICD-10; EDMUND johnson, [employer] 2 15:29:28 Otalgia of left ear Completed 201812/05/2019 EDMUND johnson, [employer] 2 15:29:27 Disorder of upper respirat ory system 917380502 Completed 201805/09/2022 Problem Code: J39.9; Problem Code Type: ICD-10; EDMUND johnson, [employer] 2 15:29:27 Otalgia of left ear Completed 201805/09/2022 EDMUND JOHNSON [place], [employer] 2 15:29:27 Dysmenor ronda 160880213 Active 2018 Not Available [facility] 2 20:51:30 Generali zed abdomina l pain 977675086 Completed 201811/18/2020 Problem Code: R10.84; Problem Code Type: ICD-10; Not Available [facility] 2 20:51:31 Urinary tract infectio us disease 33407156 Completed 201805/09/2022 Problem Code: N39.0; Problem Code Type: ICD-10; EDMUND SALAZARNER elizabeth, [employer] 2 15:29:28 Dysuria 41523259 Completed 201805/09/2022 Problem Code: R30.0; Problem Code Type: ICD-10; Almaz johnson, [employer] 14:10:39 Nausea and vomiting 39443776 Completed 201805/09/2022 Problem Code: R11.2; Problem Code Type: ICD-10; EDMUND JOHNSON elizabeth, [employer] 2 15:29:27 Vaginola bial hernia Completed 201805/09/2022 Problem Code: N89.8; Problem Code Type: ICD-10; EDMUND ELIZABETH [place], [employer] 2 15:29:27 Uses depot contrace ption 621454123 Completed 201811/18/2020 Not Available [facility] 2 20:51:36 Urinary tract infectio us disease 21784776 Completed 201912/05/2019 Problem Code: N39.0; Problem Code Type: ICD-10; EDMUND johnson, [employer] 2 15:29:28 Tachycar mark 5636780 Active 2019 Not Available [facility] 2 20:51:30 Dysuria 52304950 Completed 201912/05/2019 Problem Code: R30.0; Problem Code Type: ICD-10; Almaz johnson, [employer] 14:10:39 Body mass index 20-24 - normal 865666053 Completed 201911/18/2020 Not Available [facility] 2 20:51:37 Acute pharyngi tis 045589261 Completed 201912/05/2019 EDMUND johnson, [employer] 2 15:29:28 Pyrexia of unknown origin 5675897 Completed 201912/05/2019 Problem Code: R50.9; Problem Code Type: ICD-10; Not Available [facility] 2 20:51:33 Natural contrace ption educatio n Completed 201911/18/2020 Problem Code: Z31.61; Problem Code Type: ICD-10; Not Available [facility] 2 20:51:36 Body mass index 20-24 - normal 113577420 Completed 201911/18/2020 Not Available [facility] 2 20:51:38 Finding of body mass index 194804189 Completed 201911/18/2020 Problem Code: Z68.1; Problem Code Type: ICD-10; Not Available [facility] 2 20:51:37 High risk heterose xual behavior 16598163606 9101 Completed 201905/09/2022 Problem Code: Z72.51; Problem Code Type: ICD-10; EDMUND johnson, [employer] 2 15:29:27 Chronic fatigue syndrome 86095427 Completed 201902/11/2021 Problem Code: R53.82; Problem Code Type: ICD-10; Not Available [facility] 2 20:51:33 Syncope and collapse 610783441 Completed 201911/18/2020 Problem Code: R55; Problem Code Type: ICD-10; Not Available [facility] 2 20:51:34 Choleste rol screenin g Completed 201905/09/2022 EDMUND johnson, [employer] 2 15:29:27 Body mass index 20-24 - normal 069505050 Active 2019 Not Available [facility] 2 20:51:37 Candidia sis of vulva 8528259 Completed 201911/18/2020 Not Available [facility] 2 20:51:27 Urinary tract infectio us disease 76729659 Completed 201911/18/2020 Problem Code: N39.0; Problem Code Type: ICD-10; EDMUND johnson, [employer] 2 15:29:28 Vegan's anemia 674877151 Active 2020 Problem Code: D51.3; Problem Code Type: ICD-10; Not Available [facility] 2 20:51:27 Vitamin D deficien cy 05603312 Active 2020 Problem Code: E55.9; Problem Code Type: ICD-10; Not Available [facility] 2 20:51:27 Finding of general energy 406085187 Completed 202005/09/2022 Problem Code: R53.83; Problem Code Type: ICD-10; EDMUND JOHNSON [place], [employer] 2 15:29:27 Body mass index 20-24 - normal 829310948 Completed 202011/18/2020 Not Available [facility] 2 20:51:39 General examinat ion of patient Completed 202002/11/2021 Not Available [facility] 2 20:51:35 Syphilis test finding 977399130 Completed 202002/11/2021 Problem Code: Z11.3; Problem Code Type: ICD-10; Not Available [facility] 2 20:51:35 Candidia sis of vulva 4436520 Completed 202004/12/2021 Not Available [facility] 2 20:51:26 Urinary tract infectio us disease 93567921 Completed 202004/12/2021 Problem Code: N39.0; Problem Code Type: ICD-10; EDMUND jhonson, [employer] 2 15:29:28 Migraine without aura 25607456 Active 2020 Problem Code: G43.009; Problem Code Type: ICD-10; Not Available [facility] 2 20:51:27 Vomiting 757720760 Completed 202005/09/2022 EDMUND johnson, [employer] 2 15:29:28 Acute pharyngi tis 859447325 Completed 202107/29/2021 EDMUND SALAZARNER elizabeth, [employer] 2 15:29:28 Influenz a with gastroin testinal tract involvem ent 685631005 Completed 202105/09/2022 Problem Code: J10.2; Problem Code Type: ICD-10; EDMUND SALAZARNER elizabeth, [employer] 2 15:29:27 COVID-19 419950430 Completed 202107/29/2021 Problem Code: U07.1; Problem Code Type: ICD-10; Not Available [facility] 2 20:51:34 Acute pharyngi tis 618638282 Completed 202105/09/2022 EDMUND SALAZARNER elizabeth, [employer] 2 15:29:28 Myositis 56917079 Completed 202105/09/2022 Problem Code: M60.9; Problem Code Type: ICD-10; EDMUND SALAZARNER elizabeth, [employer] 2 15:29:27 Acute sinusiti s 31940348 Active 2023 LUC HOLLAND, [facility], [address] , [employer] 4 14:41:13 Dysuria 48248975 Active 2023 Problem Code: R30.0; Problem Code Type: ICD-10; Almaz johnson, [employer] 4 14:10:39 Fever 203797310 Active 2023 Problem Code: R50.81; Problem Code Type: ICD-10; Almaz johnson, [employer] 4 16:54:07 Influenz a caused by Influenz a A virus 750232731 Active 2024 Hanh Ty, CRYSTAL LAPPER [address] [place], [address] , [employer] 5 14:33:34 Nausea 303983997 Active 2024 Problem Code: R11.0; Problem Code Type: ICD-10; Hanh Ty, [employer] [address] [place], [address] , [employer] 5 14:33:38 Immune system finding 236134891 Active 2024 Almaz johnson, [employer] 5 13:17:10 Lumbar radiculo adwoa 348981017 Active 2024 Deann Mayen APRN [address] [place] [address], [address] , [employer] 5 14:59:24 Problem Notes None recorded. Procedures Surgical History Date Name Laterality Status Provider Name and Address Organization Details Recorded Time 02/08 Date of Last Pap Smear completed EDMUND ELIZABETH [employer] 2 15:29:43 03/21 tonsillectomy and adenoidectomy completed Not Available [facility] 2 22:56:07 06/14 tympanostomy completed Not Available [facility] 2 22:56:07 esophagogastroduodenoscopy completed [employer] 4 14:08:57 extraction of wisdom tooth completed [employer]. 4 14:09:05 Imaging Results None recorded. Procedure Notes None recorded. Medical Equipment None Reported. Allergies Allergen ID Allergen Name Allergen Category Reaction Reaction Severity Criticality Documentation Date Start Date Code Code System Note Provider Name and Address Organization Details Recorded Time 70759 chlorphen iramine / hydrocodo ne / pseudoeph edrine medicatio n Not available Not available Not available 02/07/2022 90657 4 RxNorm EDMUND johnson, [employer] 2 15:23:05 37190 brompheni ramine / pseudoeph edrine medicatio n Not available Not available Not available 02/07/2022 20310 6 RxNorm EDMUND johnson, [employer] 2 15:23:08 15786 Substance with tetracycl ine structure (substanc e) medicatio n Not available Not available Not available 02/07/2022 66041 8001 SNOMED EDMUND johnson, [employer]. 2 15:23:11 72636 azithromy kunal medicatio n Not available Not available Not available 02/07/2022 88858 RxNorm Not Available [facility] 2 22:57:03 29807 Ceftin medicatio n Not available Not available Not available 02/07/2022 98439 6 RxNorm Not Available [facility] 2 22:57:03 Medications Name Sig Start Date [...] height Body mass index (BMI) Body weight Body temperature Heart rate Oxygen saturation Oxygen saturation in Arterial blood by Pulse oximetry Systolic And Diastolic Provider Name and Address Organization Details Last Updated DateTime 5 166.37 cm 24.3 kg/m2 09607.3 9 g 98.5 [degF] 87 /min 96 % 96 % 105/61 mm[Hg] AICHA REID [employer] 5 14:45:23 Social History Question Answer Notes LastModified by Organizat ion Details LastModified Time Tobacco Smoking Status Never Smoker EDMUND johnson [employer] 05/09/2022 15:30:51 Do You Have An Advance Directive? No [email or web address] Information n ot available 08/30/2023 Is Your Home Air Conditioned? Yes Information not available 10/02/2022 Do You Wear A Helmet When Biking? No [email or web address] Information not available 07/04/2024 Are You Blind Or Do You Have Difficulty Seeing? No [email or web address] Information n ot available 05/09/2022 What Is Your Level Of Caffeine Consumption? Heavy Information not available 10/13/2022 Are You A Caregiver? Yes [email or web address] Information not available 05/09/2022 What Type Of Living Manager Do You Use? None [email or web address] Information not available 08/30/2023 In The 14 Days Before Symptom Onset, Have You Had Close Contact With A Laboratory-confirm ed COVID-19 While That Case Was Ill? No [email or web address] Information n ot available 05/09/2022 In The 14 Days Before Symptom Onset, Have You Had Close Contact With A Person Who Is Under Investigation For COVID-19 While That Person Was Ill? No [email or web address] Information not available 05/09/2022 Have You Been To An Area Known To Be High Risk For COVID-19? No [email or web address] Information not available 05/09/2022 Are You Deaf Or Do You Have Serious Difficulty Hearing? No Information not available 05/09/2022 What Type Of Diet Are You Following? REGULAR [email or web address] Information n ot available 07/04/2024 Have There Been Any Changes To Your Family Or Social Situation? No [email or web address] Information no t available 08/30/2023 Do You Have A Medical Power Of Steel Layer? No [email or web address] Information not available 08/30/2023 What Was The Date Of Your Most Recent Tobacco Screening? 03/16/2025 Information not available 03/16/2025 Have You Ever Been Counseled For Unhealthy Alcohol Use? No Information not available 10/13/2022 What Is Your Relationship Status? Single Information not available 05/09/2022 Do You Use Your Seat Belt Or Car Seat Routinely? Yes Information not available 10/02/2022 Are You Sexually Active? No [email or web address] Information not available 07/04/2024 Do You Have Smoke And Carbon Monoxide Detectors In Your Home? Yes Information not available 10/02/2022 Are You Passively Exposed To Smoke? No Information no t available 10/02/2022 Are There Any Smokers In Your House? No Information not available 10/02/2022 Do You Participate In Social Media? Yes Information not available 07/04/2024 Do You Use Sunscreen Routinely? No Information not available 10/02/2022 Have You Recently Traveled Abroad? No [email or web address] Information not available 05/09/2022 Do You Have Difficulty Walking Or Climbing Stairs? No [email or web address] Information not available 05/09/2022 Are You Currently In School? No Information not available 10/02/2022 Do You Have Any Dietary Restrictions? No [email or web address] Information not available 07/04/2024 Sex: Female Functional Status Question Answer Note LastModified by Organizat ion Details LastModified Time Do you use any illicit or recreational drugs? No Information not available 10/13/2022 Do you or have you ever used any other forms of tobacco or nicotine? No Information not available 05/01/2023 What is your level of alcohol consumption? None [email or web address] Information not available 08/30/2023 Are you currently employed? No [email or web address] Information not available 08/30/2023 Do you have transportation difficulties? No [email or web address] Information not available 05/09/2022 Are you able to walk independently without assistance or assistive devices? YESWOREST [email or web address] Information not available 05/09/2022 Do you have difficulty doing errands alone? No [email or web address] Information not available 05/09/2022 Are you able to care for yourself independently? Yes [email or web address] Information not available 05/09/2022 Do you have difficulty dressing, bathing, grooming, or toileting? No [email or web address] Information not available 05/09/2022 What is your exercise level? Moderate [email or web address] Information not available 08/26/2024 Mental Status Question Answer Note LastModified by Organizat ion Details LastModified Time Do you feel stressed (tense, restless, nervous, or anxious, or unable to sleep at night)? [id number] Information not available 07/04/2024 Do you have difficulty concentrating, remembering or making decisions? No [email or web address] Information no t available 05/09/2022 Family History Relationship Description Onset Age of this Age Resolved Age Notes LastModified by Organization Details LastModified Time Unspecified Relation Family history of Hypertension [email or web address] Not available 15:30:20 Unspecified Relation Family history of drug abuse [email or web address] Not available 11/2021 15:30:22 Medical History Condition Response Hospitalizations N ADD/ADHD N Emergency room visit since last appointm ent. N Gynecological History Statement/Question Response Menses Monthly N HPV Vaccine Y Date of Last Pap Smear 02/08/2022 Current Control Method [employer] a Most Recent Mammogram Obstetrics History GPAL:G 0 P 0 0 0 0 Immunizations Vaccine Type Date Status Note Provider Nam e and Address Organization Details Recorded Time Influenza, split virus, quadrivalent, PF 3 completed Deann Mayen APRN [address] [place], [address], [employer] 03/21/2023 17:48:59 HPV9 8 completed Almaz johnson [employer] 01/07/2024 13:32:40 varicella 2 completed Not Available [facility] 02/07/2022 23:08:40 varicella 3 completed Not Available [facility] 02/07/2022 23:08:40 MMR 5 completed Not Available [facility] 02/07/2022 23:08:40 MMR 2 completed Not Available [facility] 02/07/2022 23:08:40 Hep B, adolescent or pediatric 1 completed Not Available [facility] 02/07/2022 23:08:40 IPV 2 completed Not Available [facility] 02/07/2022 23:08:41 IPV 5 completed Not Available [facility] 02/07/2022 23:08:41 IPV 1 completed Not Available [facility] 02/07/2022 23:08:41 IPV 1 completed Not Available [facility] 02/07/2022 23:08:41 Hep A, ped/adol, 2 dose 8 completed Almaz johnson [employer] 01/07/2024 13:32:41 Hep A, ped/adol, 2 dose 3 completed Not Available [facility] 02/07/2022 23:08:41 Tdap 3 completed Not Available [facility] 02/07/2022 23:08:41 meningococcal MCV4P 8 completed Almaz johnson [employer] 01/07/2024 13:32:41 HPV, quadrivalent 3 completed Not Available [facility] 02/07/2022 23:08:42 HPV, quadrivalent 3 completed Not Available [facility] 02/07/2022 23:08:42 DTaP 5 completed JONNATHAN MOMIN null, [employer] 08/30/2023 13:56:23 DTaP 1 completed JONNATHAN MOMIN null, [employer] 08/30/2023 13:56:23 DTaP 1 completed JONNATHAN MOMIN null, [employer] 08/30/2023 13:56:23 DTaP 1 completed JONNATHAN MOMIN null, [employer] 08/30/2023 13:56:23 DTaP 2 completed JONNATHAN MOMIN null, [employer] 08/30/2023 13:56:23 meningococcal MCV4P 3 completed JONNATHAN MOMIN null, [employer] 08/30/2023 13:56:23 Hib (PRP-OMP) 1 completed Not Available [facility] 02/07/2022 23:08:43 pneumococcal conjugate PCV 7 2 completed Not Available [facility] 02/07/2022 23:08:43 pneumococcal conjugate PCV 7 1 completed Not Available [facility] 02/07/2022 23:08:44 pneumococcal conjugate PCV 7 1 completed Not Available [facility] 02/07/2022 23:08:44 pneumococcal conjugate PCV 7 1 completed Not Available [facility] 02/07/2022 23:08:44 Hib-Hep B 2 completed Not Available [facility] 02/07/2022 23:08:44 Hib-Hep B 1 completed Not Available [facility] 02/07/2022 23:08:44 Influenza, split virus, quadrivalent, PF 0 completed EDMUND JOHNSON null, [employer] 05/09/2022 15:22:58 meningococcal MCV4, unspecified formulation 3 completed EDMUND JOHNSON null, [employer] 07/25/2022 14:15:24 Influenza, split virus, trivalent, PF 5 completed Almaz Kohler null, [employer] 03/05/2025 11:37:36 Meningococcal MCV4O 3 completed JONNATHAN MOMIN null, [employer] 08/30/2023 13:56:23 DTaP, unspecified formulation 5 completed JONNATHANARSLAN MOMIN null, [employer] 08/30/2023 13:56:23 DTaP, unspecified formulation 1 completed JONNATHANARSLAN MOMIN null, [employer] 08/30/2023 13:56:23 DTaP, unspecified formulation 1 completed JONNATHAN MOMIN null, [employer] 08/30/2023 13:56:23 DTaP, unspecified formulation 1 completed JONNATHAN MOMIN null, [employer] 08/30/2023 13:56:23 DTaP, unspecified formulation 2 completed JONNATHANMOMO MOMIN null, [employer] 08/30/2023 13:56:23 Tdap 3 completed Not Available [facility] 03/16/2025 14:30:32 Past Encounters Encounter ID Performer Location Encounter Start Date Encounter Closed Date Diagnosis/Indication Diagnosis SNOMED-CT Code Diagnosis ICD10 Code Diagnosis IMO Codes Diagnosis Note [id number] Xiomara Meng [address] [address] 03/05/2025 09:51:13 03/05/2025 10:56:56 Acute low back pain 907742835 M54.50 [id number] Requires i nfluenza virus vaccination 959129396 Z23 [id number] Overweight in adulthood with body mass index of 25 or more but less than 30 082842713 Z68.25 [id number] Deann Mayen [address] [place] [address] 03/16/2025 14:26:06 03/16/2025 16:13:20 Lumbar radiculopathy 591030310 M54.16 [id number] Noy Hines presented with left-sided low back pain radiating to the buttock for 3 weeks following a lifting injury. Pain worsened after lifting her child, with shooting sensations when bending. She has a history of sciatica during previous . Examinatio n revealed tenderness over L4-L5-S1 region, left sacroiliac joint, and left piriformis . Previously prescribed meloxicam, Flexeril (refused), and prednisone (provided temporary relief). Assessment indicated lumbar radiculopa thy with possible bulging disc. Plan included lumbar spine x-ray to evaluate bony structures . [facility] Concerns Section Related Observation LastModified by Organization Detai ls LastModified Time None Recorded Concern Status LastModified by Organization Details LastModified Time None Recorded Payers Encounter Date Sequence Insurance Name Policy Number Policy Anton Covered Member ID Anton Member ID Guarantor Name 03/16/2025 1 [employer] [facility] (MEDICAID HMO) Noy Hines [id number] Noy Hines Notes Date Note Type Note Provider Name and Address Organization Details Recorded Time 03/16/2025 text/html ROS as noted in the HPI Chief ComplaintLow back pain for 3 weeks after lifting child, with pain radiating down left buttock and shooting pains when bendingHistory of Present IllnessNoy Hines presents with low back pain that has been ongoing for approximately 3 weeks, which significantly worsened after lifting her child from a second row seat to a third row seat in a vehicle.The patient reports that her back had been bothering her prior to the lifting incident, but it was not severe. When she lifted her child, who held onto her during the transfer, she experienced a big burn sensation across her entire low back on both sides. The pain is now primarily located on the left side and radiates down into her left buttock. She describes experiencing shooting pains, particularly when bending over, and notes that the area feels tight. She also reports some pain over the midline vertebrae when bending.The patient has a history of sciatica during but states that this current pain feels different and worse than her previous sciatic nerve pain. She denies any urinary symptoms including difficulty urinating, painful urination, or blood in urine, and reports normal bowel movements.For treatment, she was previously prescribed meloxicam, Flexeril muscle relaxant, and prednisone by another provider. She took some of the prednisone, which provided some relief, but refused to take the muscle relaxant because she dislikes how it makes her feel. She has also tried heat patches for therapy, which provided some relief. Despite the temporary improvement with prednisone, the pain returns and feels like it will recur. Deann Mayen, CRISTEL [address] [place] [address], [place], [address], [facility] [employer] 03/17/2025 17:29:12 OBGyn Episode No OBEpisode recorded.
--- OUTSIDE RECORDS SUMMARY | 2025-04-17 17:59 | XMS_ITS | Encounter Summary ---
Author Organization Healthcare Address [address] [place] [address] Care Team Providers Care Backup Administrator Name Role Phone Xiomara Fan APRN Primary Care Provider [phone] Encounter Details Date Type Department Care Team (Late st Contact Info) Description 02/27/2025 Orders Only [facility] [address] [place] [address] Eliana Oconnor MD [address] [place] [address] Social History Tobacco Use Types [...] on file documented as of this encounter Plan of Treatment Not on file documented as of this encounter Procedures Procedure Name Priority Date/Time Associated Diagnosis Comments DOUBLE-STRANDED DNA (DSDNA) ANTIBODY, IGG BY IFA (SO) Routine 02/27/2025 3:50 PM EDT documented in this encounter Results * Double-Stranded DNA (dsDNA) Antibody, IgG by IFA (02/27/2025 3:50 PM EDT) Blood Venous blood specimen / Unknown Eliana Oconnor MD LAB BLOOD ORDERABLES Final Re sult documented in this encounter Visit Diagnoses Not on filedocumented in this encounter Additional Health Concerns Assessment Noted Time A fall risk assessment has been complete d for the patient 01/19/2025 2:51 PM EDT A Body Mass Index follow-up plan has been documented for the patient 01/19/2025 3:22 PM EDT documented as of this encounter Care Teams Backup Administrator Relationship Specialty Start Date End Date Xiomara Fna APRN [address] [place] [address] PCP - General 01/19/25 documented as of this encounter
--- OUTSIDE RECORDS SUMMARY | 2025-04-17 17:59 | XMS_ITS | Data Portability ---
Author Organization [employer] [place] - [place] Address [address] [place] [address] Care Team Providers Care Billing Rep Name Role Phone XIOMARA FAN Primary Care Provider Unavailabl e Assessment No assessment recorded. Plan of Treatment Reminders Order Date Submit Date Provider Last Modified By Organization Details Last Modified Time Details Appointments None recorded. Lab TSH + free T4, serum 2024 025 [facility], [address] [place] [address], [id number], 5 16:08:52 thyroglobul in Ab, serum 2024 025 [facility], [address] [place] [address], [address], 5 16:08:53 LUCA (antinuclea r antibodies) screen, serum 2024 025 [facility], [address] [place] [address], [address], 5 16:08:53 test, urine [address], [address] [place] [address], [phone], 5 18:16:13 Referral None recorded. Procedures None recorded. Surgeries None recorded. Imaging XR, lumbosacral spine, 2 or 3 view 2024 025 [facility], [address] [place] [address], [phone], 16:21:35 Medication Orders ketorolac 30 mg/mL (1 mL) injection solution 2024 evan Not available 15:32:28 diclofenac sodium 50 mg tablet,amy yed release 2024 [facility], [address] [place] [address], [address], 17:27:29 cyclobenzap rine 5 mg tablet 2024 [facility], [address] [place] [address], [address], 15:51:49 meloxicam 15 mg tablet 2024 025 [facility], [address] [place] [address], [address], 15:51:48 prednisone 20 mg tablet 2024 [facility], [address] [place] [address], [address], 05:01:58 phentermine 37.5 mg tablet 2024 [facility], [address] [place] [address], [address], 15:26:41 Patient TargetsNo targets recorded. Patient Instructions Encounter Date Encounter Id Patient Instructions Last Modified By Organization Details Last Modified Time 09/22/2024 [id number] controlled substance agreement* Not available 09/22/2024 18:15:51 Reason for Referral None Reported. Results Created Date Observation Date Name Description Value Unit Range Abnormal Flag Note LastModifiedBy Organization Detail LastModifiedTime 08/27/1908/26/2024 urina lysis , dipst ick Leukocytes Small Not Available [address], [address], 08/26/2024 16:33:15 08/27/1908/26/2024 urina lysis , dipst ick Nitrite negati ve Not Available [address], [address], 08/26/2024 16:33:15 08/27/1908/26/2024 urina lysis , dipst ick Urobilinogen .2 Not Available [address], [address], 08/26/2024 16:33:15 08/27/1908/26/2024 urina lysis , dipst ick Protein Trace Not Available [address], [address], 08/26/2024 16:33:15 08/27/1908/26/2024 urina lysis , dipst ick pH 7.0 Not Available [address], [address], 08/26/2024 16:33:15 08/27/1908/26/2024 urina lysis , dipst ick Blood Small Not Available [address], [address], 08/26/2024 16:33:15 08/27/1908/26/2024 urina lysis , dipst ick Specific [place] 1.025 Not Available [address], [address], 08/26/2024 16:33:15 08/27/1908/26/2024 urina lysis , dipst ick Ketone Negati ve Not Available [address], [address], 08/26/2024 16:33:15 08/27/19 25 08/26/2024 urina lysis , dipst ick Bilirubin Negati ve Not Available [address], [address], 08/26/2024 16:33:15 08/27/19 25 08/26/2024 urina lysis , dipst ick Glucose Negati ve Not Available [address], [address], 08/26/2024 16:33:15 08/27/19 25 08/26/2024 urina lysis , dipst ick Appearance Clear Not Available [address], [address], 08/26/2024 16:33:15 08/27/19 25 08/26/2024 urina lysis , dipst ick Color Yellow Not Available [address], [address], 08/26/2024 16:33:15 09/23/19 25 09/22/2024 pregn daniel test, urine HCG negati ve Not Available [address], [address], 09/22/2024 17:35:02 11/21/19 25 11/21/2024 TSH+F REE T4 TSH 3.710 uIU/m L 0.450- 4.500 normal Not Available [facility] ([facility]) [address] [facility], [place], [address], 11/21/2024 16:08:52 11/21/19 25 11/21/2024 TSH+F REE T4 T4,free(dire ct) 1.09 NG/dL 0.82-1 .77 normal Not Available [facility] ([facility]) [address] [place], [address], 11/21/2024 16:08:52 11/21/19 25 11/21/2024 LUCA W/REF JORDAN IF POSIT CHARLES LUCA direct Positi ve negati ve abnormal Not Available [facility] ([facility]) [address] [place], [address], 11/21/2024 16:08:53 11/21/19 25 11/21/2024 LUCA W/REF JORDAN IF POSIT CHARLES complement C3, serum 127 mg/dL 82-167 Not Available [facility] ([facility]) [address] [place], [address], 11/21/2024 16:08:53 11/21/19 25 11/21/2024 LUCA W/REF JORDAN IF POSIT CHARLES complement C4, serum 26 mg/dL 12-38 Not Available [facility] ([facility]) [address] [place], [address], 11/21/2024 16:08:53 11/21/19 25 11/21/2024 LUCA W/REF JORDAN IF POSIT CHARLES anti-DNA (ds) Ab qn 15 IU/mL 0-9 above high normal Negat charles <5 Equiv ocal 5 - 9 Posit charles >9 Not Available [facility] ([facility]) [address] [place], [address], 11/21/2024 16:08:53 11/21/19 25 11/21/2024 LUCA W/REF JORDAN IF POSIT CHARLES adobe ball mixer antibodies <0.2 ai 0.0-0. 9 Not Available [facility] ([facility]) [address] [place], [address], 11/21/2024 16:08:53 11/21/19 25 11/21/2024 LUCA W/REF JORDAN IF POSIT CHARLES stephenson antibodies <0.2 ai 0.0-0. 9 Not Available [facility] ([facility]) [address] [place], [address], 11/21/2024 16:08:53 11/21/19 25 11/21/2024 LUCA W/REF JORDAN IF POSIT CHARLES antisclerode rma-70 antibodies <0.2 ai 0.0-0. 9 Not Available [facility] ([facility]) [address] [place], [address], 11/21/2024 16:08:53 11/21/19 25 11/21/2024 LUCA W/REF JORDAN IF POSIT CHARLES sjogren's anti-ss-A <0.2 ai 0.0-0. 9 Not Available [facility] ([facility]) [address] [place], [address], 11/21/2024 16:08:53 11/21/19 25 11/21/2024 LUCA W/REF JORDAN IF POSIT CHARLES sjogren's anti-ss-B <0.2 ai 0.0-0. 9 Not Available [facility] ([facility]) [address] [place], [address], 11/21/2024 16:08:53 11/21/19 25 11/21/2024 LUCA W/REF JORDAN IF POSIT CHARLES antichromati n antibodies <0.2 ai 0.0-0. 9 Not Available [facility] ([facility]) [address] [place], [address], 11/21/2024 16:08:53 11/21/19 25 11/21/2024 LUCA W/REF JORDAN IF POSIT CHARLES anti-nely-1 <0.2 ai 0.0-0. 9 Not Available [facility] ([facility]) [address] [place], [address], 11/21/2024 16:08:53 11/21/19 25 11/21/2024 LUCA W/REF JORDAN IF POSIT CHARLES anti-centrom ere B antibodies <0.2 ai 0.0-0. 9 Not Available [facility] ([facility]) [address] [facility], [place], [address], 11/21/2024 16:08:53 11/21/19 25 11/21/2024 THYRO GLOBU CARLOS ANTIB YURIDIA thyroglobuli n antibody <1.0 IU/mL 0.0-0. 9 Thyro globu carlos Antib yuridia measu red by Kelle stallings Coul[facility] er Metho dolog y It shoul d be noted that the prese nce of thyro globu carlos antib odies may not be patho genic nor diagn ostic , espec ially at very low level s. The assay manuf actur er has found that four perce nt of indiv idual s witho ut evide nce of thyro id disea se or autoi mmuni ty will have posit charles TgAb level s up to 4 IU/mL . Not Available [facility] ([facility]) [address] [facility], [place], [address], 11/21/2024 16:08:53 11/29/19 25 [place], thyro id No observ ation record ed. [email or web address], [place], [address], 12/02/2024 12:58:07 03/16/20 25 XR, lumbo sacra l spine , 2 or 3 view No observ ation record ed. [address], [address], 03/16/2025 22:15:15 Result Notes None recorded. Problems Name Problem SNOMED Code Status Onset Date Resolution Date Notes Provider Name and Address Organization Details Recorded Time Bilatera l earache 853649135 Completed 201606/28/2016 Not Available [facility] 20:51:27 Acute pharyngi tis 202505058 Completed 201608/13/2016 Problem Code: J02.8; Problem Code Type: ICD-10; EDMUND johnsonLeadhit. 2 15:29:28 Generali zed abdomina l pain 238759667 Completed 201608/13/2016 Problem Code: R10.84; Problem Code Type: ICD-10; Not Available [facility] 2 20:51:31 Fever 042982330 Completed 201605/09/2022 Problem Code: R50.81; Problem Code Type: ICD-10; Almaz johnson, [employer]. 4 16:54:07 Otogenic otalgia 58083148 Completed 201606/28/2016 Problem Code: 388.71; Problem Code Type: ICD-9; Not Available [facility] 2 20:51:40 Nausea and vomiting 15237448 Completed 201606/28/2016 Problem Code: R11.2; Problem Code Type: ICD-10; EDMUNDJONATAN johnson, [employer]. 2 15:29:27 Moderate major depressi on, single episode 25024387 Active 2016 Problem Code: F32.1; Problem Code Type: ICD-10; Not Available [facility] 2 20:51:28 Depressi ve disorder 24656565 Active 2016 Problem Code: 311; Problem Code Type: ICD-9; Not Available [facility] 2 20:51:40 Otalgia of left ear Completed 201610/04/2016 EDMUND johnson, [employer]. 2 15:29:27 Acute pharyngi tis 540986730 Completed 201611/19/2016 Problem Code: J02.8; Problem Code Type: ICD-10; EDMUND johsnon, [employer]. 2 15:29:28 Non-supp urative otitis media 389965162 Completed 201612/05/2019 Not Available [facility] 2 20:51:34 Otogenic otalgia 10354551 Completed 201610/04/2016 Problem Code: 388.71; Problem Code Type: ICD-9; Not Available [facility] 2 20:51:42 Urinary tract infectio us disease 53563852 Completed 201602/19/2017 Problem Code: N39.0; Problem Code Type: ICD-10; EDMUND johnson [employer] 2 15:29:28 Breast lump 90542147 Completed 201612/05/2019 Problem Code: N63; Problem Code Type: ICD-10; Not Available [facility] 2 20:51:40 Acute pharyngi tis 712476263 Completed 201603/19/2017 Problem Code: J02.8; Problem Code Type: ICD-10; EDMUND johnson [employer] 2 15:29:28 Generali zed abdomina l pain 084344755 Completed 201602/01/2017 Problem Code: R10.84; Problem Code Type: ICD-10; Not Available [facility] 2 20:51:32 Otalgia of left ear Completed 201602/01/2017 EDMUND johnson [employer] 2 15:29:27 Otogenic otalgia 48539965 Completed 201602/01/2017 Problem Code: 388.71; Problem Code Type: ICD-9; Not Available [facility] 2 20:51:41 Infectio us enteriti s of intestin e 56253423 Completed 201605/20/2017 Problem Code: A09; Problem Code Type: ICD-10; Not Available [facility] 2 20:51:26 Nausea 122521485 Completed 201604/04/2017 Problem Code: R11.0; Problem Code Type: ICD-10; Hanh Ty NP [address] [place] [address], [address] , [employer] 5 14:33:38 Nausea and vomiting 85144448 Completed 201604/04/2017 Problem Code: R11.2; Problem Code Type: ICD-10; EDMUND johnson [facility] [employer] 2 15:29:27 Colitis, enteriti s and gastroen teritis presumed infectio us 537007588 Completed 201605/20/2017 Problem Code: 009.1; Problem Code Type: ICD-9; Not Available [facility] 2 20:51:39 Melena 6670006 Completed 201604/16/2017 Problem Code: K92.1; Problem Code Type: ICD-10; Not Available [facility] 2 20:51:28 Hematoch ezia 077743296 Completed 201604/16/2017 Problem Code: 578.1; Problem Code Type: ICD-9; Not Available [facility] 2 20:51:42 Influenz a 4440615 Completed 201708/11/2017 Problem Code: J10.1; Problem Code Type: ICD-10; Not Available [facility] 2 20:51:28 Influenz a with respirat ory manifest ation other than pneumoni a Completed 201708/11/2017 Problem Code: 487.1; Problem Code Type: ICD-9; Not Available [facility] 2 20:51:41 Spasmodi c torticol lis 27794063 Completed 201709/24/2017 Problem Code: G24.3; Problem Code Type: ICD-10; Not Available [facility] 2 20:51:30 Gastroes ophageal reflux disease 865566251 Completed 201711/18/2020 Problem Code: 530.81; Problem Code Type: ICD-9; Not Available [facility] 2 20:51:44 Knee pain Completed 201708/27/2017 Not Available [facility] 2 20:51:29 Heartbur n 06187311 Completed 201710/09/2017 Problem Code: R12; Problem Code Type: ICD-10; Not Available [facility] 2 20:51:31 Pain in right knee Completed 201701/18/2018 Problem Code: M25.561; Problem Code Type: ICD-10; Not Available [facility] 2 20:51:29 Knee pain Completed 201701/18/2018 Problem Code: 719.46; Problem Code Type: ICD-9; Not Available [facility] 2 20:51:43 Irritabl e bowel syndrome 10225901 Completed 201711/18/2020 Problem Code: 564.1; Problem Code Type: ICD-9; Not Available [facility] 2 20:51:41 Nausea and vomiting 99892190 Completed 201701/31/2018 Problem Code: R11.2; Problem Code Type: ICD-10; EDMUND johnson, [employer] 2 15:29:27 Generali zed anxiety disorder 28823874 Completed 201711/18/2020 Problem Code: 300.02; Problem Code Type: ICD-9; Not Available [facility] 2 20:51:49 Generali zed anxiety disorder 47545996 Active 2017 Problem Code: F41.1; Problem Code Type: ICD-10; Not Available [facility] 2 20:51:27 Acute gastriti s 02073863 Completed 201704/09/2018 Problem Code: K29.00; Problem Code Type: ICD-10; Not Available [facility] 2 20:51:28 Nausea and vomiting 55454668 Completed 201702/22/2018 Problem Code: R11.2; Problem Code Type: ICD-10; EDMUND johnson [employer] 2 15:29:27 Acute pharyngi tis 515771267 Completed 201704/09/2018 Problem Code: J02.8; Problem Code Type: ICD-10; EDMUND johnson [employer] 2 15:29:28 Migraine with aura 5183870 Completed 201711/18/2020 Problem Code: 346.00; Problem Code Type: ICD-9; Not Available [facility] 2 20:51:41 Diarrhea 13719595 Completed 201704/25/2018 Problem Code: R19.7; Problem Code Type: ICD-10; Not Available [facility] 2 20:51:32 Nausea and vomiting 31137004 Completed 201712/05/2019 Problem Code: R11.2; Problem Code Type: ICD-10; EDMUND JOHNSON [employer], [employer] 2 15:29:27 Acute pharyngi tis 977987654 Completed 201707/13/2018 Problem Code: J02.8; Problem Code Type: ICD-10; EDMUND JOHNSON [employer], [employer] 2 15:29:28 Otalgia of left ear Completed 201812/05/2019 EDMUNDJONATAN JOHNSON [employer], [employer] 2 15:29:27 Disorder of upper respirat ory system 146878271 Completed 201805/09/2022 Problem Code: J39.9; Problem Code Type: ICD-10; EDMUNDJONATAN JOHNSON [place], [employer] 2 15:29:27 Otalgia of left ear Completed 201805/09/2022 EDMUNDJONATAN JOHNSON [employer], [employer] 2 15:29:27 Dysmenor ronda 606401369 Active 2018 Not Available [facility] 2 20:51:30 Generali zed abdomina l pain 520178018 Completed 201811/18/2020 Problem Code: R10.84; Problem Code Type: ICD-10; Not Available [facility] 2 20:51:31 Urinary tract infectio us disease 64496754 Completed 201805/09/2022 Problem Code: N39.0; Problem Code Type: ICD-10; EDMUNDJONATAN JOHNSON [employer], [employer]. 2 15:29:28 Dysuria 23530800 Completed 201805/09/2022 Problem Code: R30.0; Problem Code Type: ICD-10; Almaz johnson, [employer]. 4 14:10:39 Nausea and vomiting 61874968 Completed 201805/09/2022 Problem Code: R11.2; Problem Code Type: ICD-10; EDMUND johnson, [employer]. 2 15:29:27 Vaginola bial hernia Completed 201805/09/2022 Problem Code: N89.8; Problem Code Type: ICD-10; EDMUND johnson, [employer]. 2 15:29:27 Uses depot contrace ption 527217745 Completed 201811/18/2020 Not Available [facility] 2 20:51:36 Urinary tract infectio us disease 76372534 Completed 201912/05/2019 Problem Code: N39.0; Problem Code Type: ICD-10; EDMUND johnson, [employer]. 2 15:29:28 Tachycar mark 2115736 Active 2019 Not Available [facility] 2 20:51:30 Dysuria 89276556 Completed 201912/05/2019 Problem Code: R30.0; Problem Code Type: ICD-10; Almaz johnson, [employer]. 4 14:10:39 Body mass index 20-24 - normal 927919990 Completed 201911/18/2020 Not Available [facility] 2 20:51:37 Acute pharyngi tis 404321598 Completed 201912/05/2019 [facility]MUND [facility]son[facility]. 2 15:29:28 Pyrexia of unknown origin 5983307 Completed 201912/05/2019 Problem Code: R50.9; Problem Code Type: ICD-10; Not Available [facility] 2 20:51:33 Natural contrace ption educatio n Completed 201911/18/2020 Problem Code: Z31.61; Problem Code Type: ICD-10; Not Available [facility] 2 20:51:36 Body mass index 20-24 - normal 537866603 Completed 201911/18/2020 Not Available [facility] 2 20:51:38 Finding of body mass index 681893424 Completed 201911/18/2020 Problem Code: Z68.1; Problem Code Type: ICD-10; Not Available [facility] 2 20:51:37 High risk heterose xual behavior 67529225109 9101 Completed 201905/09/2022 Problem Code: Z72.51; Problem Code Type: ICD-10; EDMUND johnson, [employer] 2 15:29:27 Chronic fatigue syndrome 37851256 Completed 201902/11/2021 Problem Code: R53.82; Problem Code Type: ICD-10; Not Available [facility] 2 20:51:33 Syncope and collapse 364099437 Completed 201911/18/2020 Problem Code: R55; Problem Code Type: ICD-10; Not Available [facility] 2 20:51:34 Choleste rol screenin g Completed 201905/09/2022 EDMUND johnson [employer] 2 15:29:27 Body mass index 20-24 - normal 130141115 Active 2019 Not Available [facility] 2 20:51:37 Candidia sis of vulva 7779476 Completed 201911/18/2020 Not Available [facility] 2 20:51:27 Urinary tract infectio us disease 37964747 Completed 201911/18/2020 Problem Code: N39.0; Problem Code Type: ICD-10; EDMUND johnson [employer]. 2 15:29:28 Vegan's anemia 357562884 Active 2020 Problem Code: D51.3; Problem Code Type: ICD-10; Not Available [facility] 2 20:51:27 Vitamin D deficien cy 77095112 Active 2020 Problem Code: E55.9; Problem Code Type: ICD-10; Not Available [facility] 2 20:51:27 Finding of general energy 410152811 Completed 202005/09/2022 Problem Code: R53.83; Problem Code Type: ICD-10; EDMUND SALAZARNER [employer] 2 15:29:27 Body mass index 20-24 - normal 872856567 Completed 202011/18/2020 Not Available [facility] 2 20:51:39 General examinat ion of patient Completed 202002/11/2021 Not Available [facility] 2 20:51:35 Syphilis test finding 996626541 Completed 202002/11/2021 Problem Code: Z11.3; Problem Code Type: ICD-10; Not Available [facility] 2 20:51:35 Candidia sis of vulva 1191907 Completed 202004/12/2021 Not Available [facility] 2 20:51:26 Urinary tract infectio us disease 88493669 Completed 202004/12/2021 Problem Code: N39.0; Problem Code Type: ICD-10; EDMUND ELIZABETHNANI johnson [employer]. 2 15:29:28 Migraine without aura 58655518 Active 2020 Problem Code: G43.009; Problem Code Type: ICD-10; Not Available [facility] 2 20:51:27 Vomiting 075192495 Completed 202005/09/2022 EDMUNDJONATAN johnsonLeadhit. 2 15:29:28 Acute pharyngi tis 485901296 Completed 202107/29/2021 EDMUND johnson, [employer] 2 15:29:28 Influenz a with gastroin testinal tract involvem ent 999060539 Completed 202105/09/2022 Problem Code: J10.2; Problem Code Type: ICD-10; EDMUND johnson, [employer] 2 15:29:27 COVID-19 232103513 Completed 202107/29/2021 Problem Code: U07.1; Problem Code Type: ICD-10; Not Available [facility] 20:51:34 Acute pharyngi tis 790690045 Completed 202105/09/2022 EDMUND SALAZARNER elizabeth, [employer] 2 15:29:28 Myositis 16673555 Completed 202105/09/2022 Problem Code: M60.9; Problem Code Type: ICD-10; EDMUND johnson, [employer]. 2 15:29:27 Acute sinusiti s 27749271 Active 2023 RITU CALDWELL-BC [address] [place] [address], [address] , [employer] 4 14:41:13 Dysuria 83761574 Active 2023 Problem Code: R30.0; Problem Code Type: ICD-10; Almaz johnson, [employer] 4 14:10:39 Fever 246663694 Active 2023 Problem Code: R50.81; Problem Code Type: ICD-10; Almaz johnson, [employer] 4 16:54:07 Influenz a caused by Influenz a A virus 481758648 Active 2024 Hanh Ty NP [address] [place] [address], [address] , [employer] 5 14:33:34 Nausea 644066760 Active 2024 Problem Code: R11.0; Problem Code Type: ICD-10; Hanh Ty, MANUFA[employer]URING ELECT[employer]ICIAN [address] [place], [address] , [employer] 5 14:33:38 Immune system finding 492224014 Active 2024 Almaz johnson [employer]. 5 13:17:10 Lumbar radiculo adwoa 785818389 Active 2024 Deann Mayen, MEDICAL RESEARCH SCIENTIST [address] [place], [address] , [employer]. 5 14:59:24 Problem Notes None recorded. Procedures Surgical History Date Name Laterality Status Provider Name and Address Organization Details Recorded Time 02/08 Date of Last Pap Smear completed EDMUND ELIZABETH [employer]. 2 15:29:43 03/21 tonsillectomy and adenoidectomy completed Not Available [facility] 2 22:56:07 06/14 tympanostomy completed Not Available [facility] 2 22:56:07 esophagogastroduodenoscopy completed [facility]. 4 14:08:57 extraction of wisdom tooth completed [facility]. 4 14:09:05 Imaging Results None recorded. Procedure Notes None recorded. Medical Equipment None Reported. Allergies Allergen ID Allergen Name Allergen Category Reaction Reaction Severity Criticality Documentation Date Start Date Code Code System Note Provider Name and Address Organization Details Recorded Time 36431 chlorphen iramine / hydrocodo ne / pseudoeph edrine medicatio n Not available Not available Not available 02/07/2022 23069 4 RxNorm EDMUND johnson [employer] 2 15:23:05 50169 brompheni ramine / pseudoeph edrine medicatio n Not available Not available Not available 02/07/2022 02147 6 RxNorm EDMUND [facility]ohnsonLead[facility]. 2 15:23:08 49995 Substance with tetracycl ine structure (substanc e) medicatio n Not available Not available Not available 02/07/2022 05754 8001 SNOMED EDMUND johnsonLeadhit. 2 15:23:11 67758 azithromy kunal medicatio n Not available Not available Not available 02/07/2022 82131 RxNorm Not Available [facility] 2 22:57:03 09018 Ceftin medicatio n Not available Not available Not available 02/07/2022 76065 6 RxNorm Not Available [facility] 2 22:57:03 Medications Name Sig Start Date [...] blood by Pulse oximetry Heart rate Systolic And Diastolic Provider Name and Address Organization Details Last Updated DateTime 5 166.37 cm 25.5 kg/m2 23807.9 2 g 99 % 99 % 83 /min 122/77 mm[Hg] [employer] 5 16:52:26 Date Recorded Body height Body mass index (BMI) Body weight Heart rate Oxygen saturation Oxygen saturation in Arterial blood by Pulse oximetry Systolic And Diastolic Provider Name and Address Organization Details Last Updated DateTime 5 166.37 cm 25.2 kg/m2 41938.2 2 g 129 /min 98 % 98 % 120/78 mm[Hg] [employer] 5 16:17:02 Date Recorded Body height Body mass index (BMI) Body weight Heart rate Oxygen saturation Oxygen saturation in Arterial blood by Pulse oximetry Systolic And Diastolic Provider Name and Address Organization Details Last Updated DateTime 5 166.37 cm 25.6 kg/m2 38330.8 1 g 107 /min 97 % 97 % 126/80 mm[Hg] [employer] 5 11:53:01 Date Recorded Body mass index (BMI) Body weight Heart rate Oxygen saturation Oxygen saturation in Arterial blood by Pulse oximetry Systolic And Diastolic Provider Name and Address Organization Details Last Updated DateTime 5 25.7 kg/m2 24131 g 85 /min 98 % 98 % 110/45 mm[Hg] [employer] 5 10:11:19 Date Recorded Body height Provider Name an d Address Organization Details Last Updated DateTime 03/05/2025 166.37 cm Dinora [facility] 03/05/2025 09:59:06 Date Recorded Body height Body mass index (BMI) Body weight Body temperature Heart rate Oxygen saturation Oxygen saturation in Arterial blood by Pulse oximetry Systolic And Diastolic Provider Name and Address Organization Details Last Updated DateTime 166.37 cm 24.3 kg/m2 84044.3 9 g 98.5 [degF] 87 /min 96 % 96 % 105/61 mm[Hg] AICHA REID [place]. 5 14:45:23 Social History Question Answer Notes LastModified by Organizat ion Details LastModified Time Tobacco Smoking Status Never Smoker EDMUND johnson [place]. 05/09/2022 15:30:51 Do You Have An Advance Directive? No [email or web address] Information n ot available 08/30/2023 Is Your Home Air Conditioned? Yes Information not available 10/02/2022 Do You Wear A Helmet When Biking? No [email or web address] Information not available 07/04/2024 Are You Blind Or Do You Have Difficulty Seeing? No [email or web address] Information n ot available 05/09/2022 What Is Your Level Of Caffeine Consumption? Heavy Information not available 10/13/2022 Are You A Caregiver? Yes [email or web address] Information not available 05/09/2022 What Type Of Student Liaison Officer Do You Use? None Information not available 08/30/2023 In The 14 Days Before Symptom Onset, Have You Had Close Contact With A Laboratory-confirm ed COVID-19 While That Case Was Ill? No [email or web address] Information n ot available 05/09/2022 In The 14 Days Before Symptom Onset, Have You Had Close Contact With A Person Who Is Under Investigation For COVID-19 While That Person Was Ill? No Information not available 05/09/2022 Have You Been To An Area Known To Be High Risk For COVID-19? No [email or web address] Information not available 05/09/2022 Are You Deaf Or Do You Have Serious Difficulty Hearing? No [email or web address] Information not available 05/09/2022 What Type Of Diet Are You Following? REGULAR [email or web address] Information n ot available 07/04/2024 Have There Been Any Changes To Your Family Or Social Situation? No [email or web address] Information no t available 08/30/2023 Do You Have A Medical Power Of Permit Coordinator? No [email or web address] Information not available 08/30/2023 What Was The Date Of Your Most Recent Tobacco Screening? 03/16/2025 Information not available 03/16/2025 Have You Ever Been Counseled For Unhealthy Alcohol Use? No Information not available 10/13/2022 What Is Your Relationship Status? Single [email or web address] Information not available 05/09/2022 Do You Use Your Seat Belt Or Car Seat Routinely? Yes Information not available 10/02/2022 Are You Sexually Active? No [email or web address] Information not available 07/04/2024 Do You Have Smoke And Carbon Monoxide Detectors In Your Home? Yes Information not available 10/02/2022 Are You Passively Exposed To Smoke? No Information no t available 10/02/2022 Are There Any Smokers In Your House? No Information not available 10/02/2022 Do You Participate In Social Media? Yes [email or web address] Information not available 07/04/2024 Do You Use Sunscreen Routinely? No Information not available 10/02/2022 Have You Recently Traveled Abroad? No [email or web address] Information not available 05/09/2022 Do You Have Difficulty Walking Or Climbing Stairs? No [email or web address] Information not available 05/09/2022 Are You Currently In School? No Information not available 10/02/2022 Do You Have Any Dietary Restrictions? No [email or web address] Information not available 07/04/2024 Sex: Female Functional Status Question Answer Note LastModified by Organizat ion Details LastModified Time Do you use any illicit or recreational drugs? No Information not available 10/13/2022 Do you or have you ever used any other forms of tobacco or nicotine? No Information not available 05/01/2023 What is your level of alcohol consumption? None [email or web address] Information not available 08/30/2023 Are you currently employed? No [email or web address] Information not available 08/30/2023 Do you have transportation difficulties? No [email or web address] Information not available 05/09/2022 Are you able to walk independently without assistance or assistive devices? YESWOREST [email or web address] Information not available 05/09/2022 Do you have difficulty doing errands alone? No [email or web address] Information not available 05/09/2022 Are you able to care for yourself independently? Yes [email or web address] Information not available 05/09/2022 Do you have difficulty dressing, bathing, grooming, or toileting? No [email or web address] Information not available 05/09/2022 What is your exercise level? Moderate [email or web address] Information not available 08/26/2024 Mental Status Question Answer Note LastModified by Organizat ion Details LastModified Time Do you feel stressed (tense, restless, nervous, or anxious, or unable to sleep at night)? [id number] Information not available 07/04/2024 Do you have difficulty concentrating, remembering or making decisions? No [email or web address] Information no t available 05/09/2022 Family History Relationship Description Onset Age of this Age Resolved Age Notes LastModified by Organization Details LastModified Time Unspecified Relation Family history of Hypertension [email or web address] Not available 15:30:20 Unspecified Relation Family history of drug abuse [email or web address] Not available 11/2021 15:30:22 Medical History Condition Response Hospitalizations N Emergency room visit since last appointm ent. 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 03/21/2023 17:48:59 HPV9 8 completed Almaz johnson, [employer] 01/07/2024 13:32:40 varicella 2 completed Not Available [facility] 02/07/2022 23:08:40 varicella 3 completed Not Available [facility] 02/07/2022 23:08:40 MMR 5 completed Not Available [facility] 02/07/2022 23:08:40 MMR 2 completed Not Available [facility] 02/07/2022 23:08:40 Hep B, adolescent or pediatric 1 completed Not Available [facility] 02/07/2022 23:08:40 IPV 2 completed Not Available [facility] 02/07/2022 23:08:41 IPV 5 completed Not Available [facility] 02/07/2022 23:08:41 IPV 1 completed Not Available [facility] 02/07/2022 23:08:41 IPV 1 completed Not Available [facility] 02/07/2022 23:08:41 Hep A, ped/adol, 2 dose 8 completed Almaz johnson, [employer] 01/07/2024 13:32:41 Hep A, ped/adol, 2 dose 3 completed Not Available [facility] 02/07/2022 23:08:41 Tdap 3 completed Not Available [facility] 02/07/2022 23:08:41 meningococcal MCV4P 8 completed Almaz johnson, [employer] 01/07/2024 13:32:41 HPV, quadrivalent 3 completed Not Available [facility] 02/07/2022 23:08:42 HPV, quadrivalent 3 completed Not Available [facility] 02/07/2022 23:08:42 DTaP 5 completed JONNATHAN johnson, [employer] 08/30/2023 13:56:23 DTaP 1 completed JONNATHAN johnson, [employer] 08/30/2023 13:56:23 DTaP 1 completed JONNATHAN johnson, [employer] 08/30/2023 13:56:23 DTaP 1 completed JONNATHAN MOMIN null, [employer] 08/30/2023 13:56:23 DTaP 2 completed JONNATHAN MOMIN null, [employer] 08/30/2023 13:56:23 meningococcal MCV4P 3 completed JONNATHAN MOMIN null, [employer] 08/30/2023 13:56:23 Hib (PRP-OMP) 1 completed Not Available [facility] 02/07/2022 23:08:43 pneumococcal conjugate PCV 7 2 completed Not Available [facility] 02/07/2022 23:08:43 pneumococcal conjugate PCV 7 1 completed Not Available [facility] 02/07/2022 23:08:44 pneumococcal conjugate PCV 7 1 completed Not Available [facility] 02/07/2022 23:08:44 pneumococcal conjugate PCV 7 1 completed Not Available [facility] 02/07/2022 23:08:44 Hib-Hep B 2 completed Not Available [facility] 02/07/2022 23:08:44 Hib-Hep B 1 completed Not Available [facility] 02/07/2022 23:08:44 Influenza, split virus, quadrivalent, PF 0 completed EDMUND JOHNSON null, [employer] 05/09/2022 15:22:58 meningococcal MCV4, unspecified formulation 3 completed EDMUND JOHNSON null, [employer] 07/25/2022 14:15:24 Influenza, split virus, trivalent, PF 5 completed Almaz Kohler null, [employer] 03/05/2025 11:37:36 Meningococcal MCV4O 3 completed JONNATHAN MOMIN null, [employer] 08/30/2023 13:56:23 DTaP, unspecified formulation 5 completed JONNATHAN MOMIN null, [employer] 08/30/2023 13:56:23 DTaP, unspecified formulation 1 completed JONNATHAN MOMIN null, [employer] 08/30/2023 13:56:23 DTaP, unspecified formulation 1 completed JONNATHAN MOMIN null, [employer] 08/30/2023 13:56:23 DTaP, unspecified formulation 1 completed JONNATHAN MOMIN null, [employer] 08/30/2023 13:56:23 DTaP, unspecified formulation 2 completed JONNATHAN MOMIN null, [employer] 08/30/2023 13:56:23 Tdap 3 completed Not Available [facility] 03/16/2025 14:30:32 Past Encounters Encounter ID Performer Location Encounter Start Date Encounter Closed Date Diagnosis/Indication Diagnosis SNOMED-CT Code Diagnosis ICD10 Code Diagnosis IMO Codes Diagnosis Note [id number] [place] [address] 05/09/2022 14:50:35 05/09/2022 15:44:39 Uses depot contraception 474390440 Z30.42 Pain in throat 609566426 R07.0 Body mass index 20-24 - normal 729056602 Z68.22 [id number] [place] [address] 07/25/2022 14:13:14 07/25/2022 14:51:19 Uses depot contraception 196057464 Z30.42 Right uppe r quadrant pain 369098771 R10.11 Body mass index 20-24 - normal 007819382 Z68.22 [id number] [place] [address] 10/02/2022 13:38:44 10/02/2022 14:01:49 Anxiety 00799038 F41.9 Fatigue 52273339 R53.83 Body mass index 20-24 - normal 173623586 Z68.22 [id number] Xiomara Fan, [place] [address] 10/13/2022 16:25:58 10/13/2022 16:52:39 Contraception care management 722913592 Z30.9 Acute sinusitis 47792552 J01.90 [id number] [place] [address] 12/29/2022 16:36:52 01/01/2023 08:15:18 Contraception care management 309855500 Z30.9 Body mass index 20-24 - normal 971650991 Z68.22 [id number] [place] [address] 02/13/2023 16:38:05 02/13/2023 17:18:38 Pain in throat 955497219 R07.0 Allergic rhinitis 290603 04 J30.9 Body mass index 20-24 - normal 882995839 Z68.22 [id number] Xiomara Fan [place] [address] 03/09/2023 16:45:44 03/09/2023 17:12:08 Contraception care management 486457269 Z30.9 Body mass index 20-24 - normal 219057161 Z68.22 [id number] [place] [address] 03/21/2023 14:34:30 03/21/2023 15:12:35 Administration of influenza vaccine 50854453 Z23 [id number] Deann Teaguecary [place] [address] 05/01/2023 16:20:24 05/01/2023 17:37:35 Acute upper respiratory infection 75544513 J06.9 Patient presented with symptoms of upper respirator y infection. Advised to drink plenty of fluids, run a cool-mist humidifier in room at night, gargle salt water for sore throat, and get plenty of rest. Patient should avoid over-exert ion and reduce exposure to irritants such as smoke, cold, dry air, and dust. Treatment currently involves symptomati c relief. Patient may take acetaminop hen or ibuprofen as directed to reduce fever and body aches. Antihistam ine and decongesta nt usage was discussed and recommenda tions made. Patient understood these instructio ns and will follow up in the office in 10 days to 2 weeks if symptoms not improving. [id number] [place] [address] 05/18/2023 16:40:49 05/18/2023 17:20:22 Contraception care management 184295365 Z30.9 Urinary symptoms 4594224 08 R39.9 Acute urin felisha tract infection 869753708 N39.0 Candidiasis of vagina 72 543944 B37.31 Body mass index 20-24 - normal 448693479 Z68.22 [id number] Xiomara Fan[address] 08/09/2023 16:38:14 08/09/2023 17:21:34 Contraception care management 279653903 Z30.9 Venereal d isease screening 725455373 Z11.3 Migraine 04162261 G43.90 9 Body mass index 20-24 - normal 122608114 Z68.22 [id number] [place] [address] 08/30/2023 13:44:48 08/30/2023 15:27:54 Viral screening 083399172 Z11.59 Acute sinusitis 13668036 J01.90 [id number] [place] [address] 10/18/2023 16:51:09 10/18/2023 17:23:16 Contraception care management 760314896 Z30.9 Body mass index 20-24 - normal 962334395 Z68.22 [id number] Xiomara Fan[address] 0 01/07/2024 13:28:20 01/07/2024 14:03:38 Contraception care management 325530851 Z30.9 Body mass index 20-24 - normal 222086719 Z68.22 [id number] [place] [address] 03/17/2024 13:53:10 03/17/2024 14:38:30 Contraception care management 832077872 Z30.9 Dysuria 33255139 R30.0 Acute urin felisha tract infection 304106154 N39.0 Fatigue 96620232 R53.83 Hyperlipidemia 20395358 E78.5 Hyperglycemia 87194314 R 73.9 Body mass index 25-29 - overweight 237057854 Z68.25 [id number] [place] [address] 05/26/2024 16:33:55 05/29/2024 10:26:06 Contraception care management 207060571 Z30.9 Fever 671425614 R50.9 Lower resp iratory tract infection 01136545 J22 Community acquired pneumonia 504919764 J18.9 Cough 30999826 R05.9 Body mass index 25-29 - overweight 370448233 Z68.25 [id number] Hanh Ty NP [place] [address] 07/04/2024 13:49:10 07/04/2024 15:22:01 Fever 840987575 R50.9 Influenza caused by Influenza A virus 667358543 J09.X2 Nausea 058214263 R11.0 [id number] [place] [address] 08/26/2024 16:23:09 08/26/2024 17:14:33 Dysuria 31950767 R30.0 Bacterial vaginosis 4197 47468 N76.0 Acute urin felisha tract infection 964449835 N39.0 Body mass index 20-24 - normal 921850528 Z68.22 Pruritic rash 26319669 L 28.2 [id number] [place] [address] 09/22/2024 16:41:50 09/22/2024 17:28:17 Obesity 299201732 E66.9 Body mass index 25-29 - overweight 197113129 Z68.25 [id number] [place] [address] 10/28/2024 16:03:50 10/28/2024 16:56:33 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 69067711 Overweight in adulthood with body mass index of 25 or more but less than 30 467263848 Z68.25 800130 [id number] [place] [address] 11/20/2024 11:31:03 11/20/2024 12:20:57 Fatigue 22564469 R53.83 2964340 Overweight in adulthood with body mass index of 25 or more but less than 30 866842531 Z68.25 099297 [id number] [place] [address] 03/05/2025 09:51:13 03/05/2025 10:56:56 Acute low back pain 489691302 M54.50 40118902 Requires i nfluenza virus vaccination 768503269 Z23 4669503 Overweight in adulthood with body mass index of 25 or more but less than 30 776358805 Z68.25 [id number] Deann Mayen, [place] [address] 03/16/2025 14:26:06 03/16/2025 16:13:20 Lumbar radiculopathy 341682393 M54.16 [id number] Katharinetessa Niallkameron presented with left-sided low back pain radiating [...] evaluate bony structures . Physical therapy was recommende d. Health Concerns Section Related Observation LastModified by Organization Detai ls LastModified Time None Recorded Concern Status LastModified by Organization Details LastModified Time None Recorded Advance Directives Directive N: Payers Insurance Date Sequence Insurance Name Policy Number Policy Anton Covered Member ID Anton Member ID Guarantor Name 05/10/2023 1 UNSPECIFIED REMIT PAYOR Noy Hines 03/05/2025 [id number]ICA[place] Noy Hines [id number] Noy Hines 03/16/2025 1 [employer] [facility] (MEDICAID HMO) Noy Hines [id number] Noy Hines Notes Date Note Type Note [...] refill. pt voiced understanding. UPT neg. Xiomara Fan, [facility] [address] [facility], [place], [address], [place] [employer] 09/22/2024 18:16:10 10/28/2024 text/html pt here today concerned about labwork that was done at [facility]. 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 pt states that she [...] pt voiced understanding. Xiomara Fan APRN [address] [place], [address], [employer]. 10/28/2024 17:56:01 11/20/2024 text/html pt here today requesting her thyroid checked. pt states that she went to a different [facility] and they state that her thyroglobulin antibody and LUCA was elevated. and that she needed that checked out. i will draw labs today. Xiomara Fan APRN [address] [place], [address], [employer]. 11/20/2024 13:44:16 03/05/2025 text/html pt here today with c/o [...] pt voiced understanding. Xiomara Fan APRN [address] [facility], [place], [address], [employer] 03/05/2025 12:18:54 03/16/2025 text/html ROS as noted in the [...] and feels like it will recur. Deann Mayen APRN [address] [place], [address], [facility] [employer] 03/17/2025 17:29:12 OBGyn Episode No OBEpisode recorded.
--- OUTSIDE RECORDS SUMMARY | 2025-04-17 17:59 | XMS_ITS | Clinical Summary ---
Author Organization [facility] Address [address] [place] [address] Care Team Providers Care Director Of Academic Name Role Phone Xiomara Fan APRN Primary Care Provider [phone] Allergies Active Allergy Reactions Criticality Noted Date Comments Azithromycin Hives Medium 08/29/2017 Cefdinir Rash Low 01/17/2018 Cefuroxime Hives Medium 08/29/2017 Doxycycline Other - please docum ent in the comment field,Rash Low 08/29/2017 Erythromycin Rash Low 01/17/2018 Guaifenesin-Dm Hives Medium 08/29/2017 Medications cetirizine (ZyrTEC) 10 MG tablet Take 1 tablet by mouth daily. Active phentermine (Adipex-P) 37.5 MG tablet Take 1 tablet by mouth daily. Active Active Problems Problem Noted Date Diagnosed Date Positive LUCA (antinuclear antibody) 01/19/2025 Urticaria 01/19/2025 Encounters Date Type Department Care Team Description 02/27/2025 Orders Only [facility] Medicine Specialties [address] [place] [address] Eliana Oconnor MD 02/05/2025 Telephone [facility] Medicine Specialties [address] [place] [address] Eliana Oconnor MD 01/20/2025 Telephone [facility] Medicine Specialties [address] [place] [address] Eliana Oconnor MD 01/19/2025 2:30 PM EDT [facility] [address] [place] [id number] Eliana Oconnor MD Positive LUCA (antinuclear antibody) (Primary Dx); Urticaria; Positive double stranded DNA antibody test 01/19/2025 Travel from Last 3 Months Social History Tobacco Use Types Packs/Day Years Used Date Smoking Tobacco: Never Smokeless Tobacco: Never Tobacco Cessation:Counseling Given: Not Answered PHQ-2 Answer Date Recorded Patient Health Questionnaire-2 [...] Sign Reading Time Taken Comments Blood Pressure 113/75 01/19/2025 2:45 PM EDT Pulse 86 01/19/2025 2:45 PM EDT Temperature 36.4 C (97.6 F) 01/19/2025 2:45 PM EDT Respiratory Rate 16 01/19/2025 2:45 PM EDT Oxygen Saturation 100% 01/19/2025 2:45 PM EDT Inhaled Oxygen Concentration - - Weight 69.7 kg (153 lb 10.6 oz) 01/19/2025 2:45 PM EDT Height 167.6 cm (5' 6 ) 01/19/2025 2:45 PM EDT Body Mass Index 24.8 01/19/2025 2:45 PM EDT Plan of Treatment Health Maintenance Due Date Last Done Comments [facility]-HIV Screening 2000 [facility]-Hepatitis C Screening 2000 [facility]-/Child/Adol SDOH Screenings 2000 [facility]- SDOH Screenings 2018 [facility]-Adult SDOH Screenings 2018 [facility]-Pap Smear 2021 [id number] Vaccine (1 - season) 2025 [facility]-Influenza Vaccine (#1) 2025 03/21/2023, [facility]-Depression Screening 01/19/2026 01/19/2025 [facility]-DTaP,Tdap,and Td Vaccines (8 - Td or Tdap) 01/23/2033 01/23/2023, 01/15/2013, 10/03/2004, Additional history exists [facility]-Zoster Vaccines (1 of 2) 2050 01/15/2013, 09/09/2001 [facility]-HIB Vaccines Completed 09/09/2001, 02/2001, 2000 [facility]-Hepatitis B Vaccines Completed 002, 2000, 2000 [facility]-Pneumococcal Vaccine: Pediatrics (0 to 5 Years) and At-Risk Patients (6 to 49 Years) Aged Out 09/09/2001, 03/06/2001, 01/10/2001, Additional history exists No longer eligible based on patient's age to complete this topic [facility]-IPV Vaccines Completed 10/03/2004, 01/2002, 01/10/2001, Additional history exists [facility]-Varicella Vaccines Completed 01/15/2013, 2001 HPV Vaccines Completed 09/13/2017, 04/05, 01/15/2013 [facility]-Hepatitis A Vaccines Completed 09/13/2017, 01/02 [facility]-Rotavirus Vaccines Aged Out No lo nger eligible based on patient's age to complete this topic Procedures Procedure Name Priority Date/Time Associated Diagnosis Comments DOUBLE-STRANDED DNA (DSDNA) ANTIBODY, IGG BY IFA (SO) Routine 02/27/2025 3:50 PM EDT URINALYSIS MICROSCOPIC FOR UA REFLEX Routine 01/19/2025 3:47 PM EDT Positive LUCA (antinuclear antibody) URINALYSIS WITH REFLEX MICROSCOPIC Routine 01/19/2025 3:47 PM EDT Positive LUCA (antinuclear antibody) PROTEIN, URINE, RANDOM WITH CREATININE Routine 01/19/2025 3:47 PM EDT Positive LUCA (antinuclear antibody) C4 COMPLEMENT Routine 01/19/2025 3:32 PM EDT Positive LUCA (antinuclear antibody) C3 COMPLEMENT Routine 01/19/2025 3:32 PM EDT Positive LUCA (antinuclear antibody) DOUBLE-STRANDED DNA (DSDNA) ANTIBODY, IGG BY IFA (SO) Routine 01/19/2025 3:32 PM EDT Positive LUCA (antinuclear antibody) ANTINUCLEAR ANTIBODY (LUCA) WITH HEP-2 SUBSTRATE, IGG BY IFA (SO) Routine 01/19/2025 3:32 PM EDT Positive LUCA (antinuclear antibody) from Last 3 Months Results * Double-Stranded DNA (dsDNA) Antibody, IgG by IFA (02/27/2025 3:50 PM EDT) Only the most recent of2 resultswithin the time period is included. Blood Venous blood specimen / Unknown Eliana Oconnor MD LAB BLOOD ORDERABLES Final Re sult * Urinalysis Microscopic Examination (01/19/2025 3:47 PM EDT) Urine Urine specimen obtained by clean catch procedure / Unknown Non-blood Collection / Unknown 01/19/2025 3:47 PM EDT 01/19/2025 3:47 PM EDT Eliana Oconnor MD LAB URINE ORDERABLES Final Re sult [facility] [address] [place] [address] * Protein, Random, Urine with Creatinine (01/19/2025 3:47 PM EDT) Protein, Urine 6 mg/dL 01/19/2025 5:53 PM EDT [facility] Creatinine, Urine 98 mg/dL 01/19/2025 5:53 PM EDT [facility] Protein/Creatin ine Ratio 0.1 mg/mg Creat 01/19/2025 5:53 PM EDT [facility] Urine Urine specimen obtained by clean catch procedure / Unknown Non-blood Collection / Unknown 01/19/2025 3:47 PM EDT 01/19/2025 3:47 PM EDT us Eliana Oconnor MD LAB URINE ORDERABLES Final Re sult [facility] [address] [place] [address] * (ABNORMAL) Urinalysis with reflex microscopic (Culture NOT Included) (01/19/2025 3:47 PM EDT) Color, Urine Yellow LAB URINALYSIS - AUTOMATED METHOD 01/19/2025 5:11 PM EDT [facility] Clarity, Urine Clear LAB URINALYSIS - AUTOMATED METHOD 01/19/2025 5:11 PM EDT [facility] Spec [place], Urine 1.015 1.005 - 1.030 LAB URINALYSIS - AUTOMATED METHOD 01/19/2025 5:11 PM EDT [facility] pH, Urine 7.0 5.0 - 8.0 LAB URINALYSIS - AUTOMATED METHOD 01/19/2025 5:11 PM EDT [facility] Protein, Urine Negative Negative mg/dL LAB URINALYSIS - AUTOMATED METHOD 01/19/2025 5:11 PM EDT [facility] Glucose, Urine Negative Negative mg/dL LAB URINALYSIS - AUTOMATED METHOD 01/19/2025 5:11 PM EDT [facility] Ketones, Urine Negative Negative mg/dL LAB URINALYSIS - AUTOMATED METHOD 01/19/2025 5:11 PM EDT [facility] Blood, Urine Small(A) Negative LAB URINALYSIS - AUTOMATED METHOD 01/19/2025 5:11 PM EDT [facility] Bilirubin, Urine Negative Negative LAB URINALYSIS - AUTOMATED METHOD 01/19/2025 5:11 PM EDT [facility] Urobilinogen, Urine 1.0 0.2 to 1.0 mg/dL LAB URINALYSIS - AUTOMATED METHOD 01/19/2025 5:11 PM EDT [facility] Leukocytes, Urine Large(A) Negative LAB URINALYSIS - AUTOMATED METHOD 01/19/2025 5:11 PM EDT [facility] Nitrite, Urine Negative Negative LAB URINALYSIS - AUTOMATED METHOD 01/19/2025 5:11 PM EDT [facility] RBC, Urine 4 - 10(A) 0 to 3 /HPF LAB URINALYSIS - AUTOMATED METHOD 01/19/2025 5:11 PM EDT [facility] WBC, Urine 11 - 20(A) 0 to 5 /HPF LAB URINALYSIS - AUTOMATED METHOD 01/19/2025 5:11 PM EDT [facility] Squamous Epithelial Cells 3 - 5 0 to 5 /HPF LAB URINALYSIS - AUTOMATED METHOD 01/19/2025 5:11 PM EDT [facility] Hyaline Casts 0 - 2 0 to 5 /LPF LAB URINALYSIS - AUTOMATED METHOD 01/19/2025 5:11 PM EDT [facility] Bacteria, Urine Present Negative LAB URINALYSIS - AUTOMATED METHOD 01/19/2025 5:11 PM EDT [facility] Urine Urine specimen obtained by clean catch procedure / Unknown Non-blood Collection / Unknown 01/19/2025 3:47 PM EDT 01/19/2025 3:47 PM EDT Eliana Oconnor MD LAB URINE ORDERABLES Final Re sult Performing Organization Address [facility] Co de Phone Number [facility] [address] [place] [address] * C3 Complement (01/19/2025 3:32 PM EDT) C3 Complement 121 84 - 166 mg/dL 01/19/2025 5:42 PM EDT [facility] Blood Venous blood specimen / Unknown Venipuncture / Unknown 01/19/2025 3:32 PM EDT 01/19/2025 3:32 PM EDT Eliana Oconnor MD LAB BLOOD ORDERABLES Final Re sult Performing Organization Address City/[facility]/ZIP Co de Phone Number [facility] [address] [place] [address] * C4 Complement (01/19/2025 3:32 PM EDT) C4 Complement 29 13 - 36 mg/dL 01/19/2025 5:42 PM EDT [facility] Blood Venous blood specimen / Unknown Venipuncture / Unknown 01/19/2025 3:32 PM EDT 01/19/2025 3:32 PM EDT Eliana Oconnor MD LAB BLOOD ORDERABLES Final Re sult [facility] [address] [place] [address] * ANTI NUCLEAR AB (01/19/2025 3:32 PM EDT) LUCA INTERPRETIVE COMMENT See Note 01/22/2025 10:48 PM EDT [facility] Anti Nuc Ab Screen <1:80 <1:80 01/22/2025 10:48 PM EDT [facility] Blood Venous blood specimen / Unknown Venipuncture / Unknown 01/19/2025 3:32 PM EDT 01/19/2025 3:32 PM EDT Narrative [facility] - 01/22/2025 10:48 PM EDT Clinical Interpretation: Antinuclear antibodies by IFA negative for homogeneous, speckled, nucleolar, centromere, and nuclear dots patterns. Cytoplasmic antibodies by IFA negative for reticular/AMA, discrete/GW body-like, polar/golgi-like, rods and rings, and cytoplasmic speckled patterns. INTERPRETIVE INFORMATION: LUCA Interpretive Comment Presence of antinuclear antibodies (LUCA) is a hallmark feature of systemic autoimmune rheumatic diseases (SARD). However, LUCA lacks diagnostic specificity and is associated with a variety of diseases (cancers, autoimmune, infectious, and inflammatory conditions) and may also occur in healthy individuals in varying prevalence. The lack of diagnostic specificity requires confirmation of positive LUCA by more specific serologic tests. LUCA (nuclear reactivity) positive patterns reported include centromere, homogeneous, nuclear dots, nucleolar, or speckled. LUCA (cytoplasmic reactivity) positive patterns reported include reticular/AMA, discrete/GW body-like, polar/golgi-like, cytoplasmic speckled or rods and rings. All positive patterns are reported to endpoint titers (1:2560). Reported patterns may help guide differential diagnosis, although they may not be specific for individual antibodies or diseases. Mitotic staining patterns not reported. Negative results do not necessarily rule out SARD. Performed By: [facility] [address] [place] [address] Electrical Technician: Andrei Hoffman MD, PhD CLIA Number: [id number] Eliana Oconnor MD LAB BLOOD ORDERABLES Final Re sult [facility] [address] [place] [address] from Last 3 Months Insurance [employer] Care Teams Director Of Academic Relationship Specialty Start Date End Date Xiomara Fan APRN [address] [phone] PCP - General 01/19/25
[2025-04-17 18:02] LABS: Influenza A, PCR Not Detected (NotDetected); Influenza B, PCR Not Detected (NotDetected)
[2025-04-17 18:08] LABS: Microscopic, Urine URINE MICROSCOPIC (MICROSCOPIC)
[2025-04-17 18:16] LABS: Bilirubin,Urine Negative (Negative); Color,Urine YELLOW (Yellow); Glucose,Urine (UA) Negative (Negative); Ketones,Urine Negative (Negative); Leukocyte Esterase,Urine Negative (Negative); PH,Urine 7.0 (5.0-8.5); Protein,Urine Negative (Negative); Specific Gravity, Urine 1.010 (1.005-1.030); Urobilinogen,Urine 1.0 EU/dl (0.2)
[2025-04-17 18:16] LABS: Urine Pregnancy, HCG Qual. Negative (Negative)
--- NOTE | 2025-04-17 18:17 | ECG_ITS ---
APPROVED REPORT Exam: Resting ECG HR:67 bpm ECG Measurements Heart Rate 67 AXES RI 129 P 58 QRSd 79 QRS 82 QT 400 T 69 QTc 415 Conclusion Normal sinus rhythm Normal axis Normal intervals No STEMI Electronically signed by : Atul Cedeño, 04/18/2025 01:29:10
[2025-04-17 18:18] LABS: Hematocrit 43.0 % (37.0-47.0); Hemoglobin 14.5 g/dL (12.2-16.2); Immature Granulocytes % 0.2 %; Mean Corpuscular HGB Conc 33.7 g/dL (31.8-35.4); Mean Corpuscular Hemoglobin 31.5 pg (27.0-31.2); Mean Corpuscular Volume 93.5 fl (81-99); Nucleated Red Blood Cells % 0 %; Platelet Count 213 K/mm3 (142-424); Red Blood Count 4.60 M/mm3 (4.20-5.40); Red Cell Distribution Width-SD 39.8 fL; White Blood Count 5.2 K/mm3 (4.8-10.8)
[2025-04-17 18:26] LABS: Chloride 102 mmol/L (98-107)
[2025-04-17 18:27] LABS: Potassium 4.0 mmoL/L (3.5-5.1); Sodium 140 mmol/L (136-145)
[2025-04-17] MEDS: 0.9 % SODIUM CHLORIDE 1000ML 1,000 ML 999 ML IV (18:28)
[2025-04-17 18:29] LABS: Alanine Aminotransferase 16 U/L (12-78); Anion Gap 13.0 mEq/L (5-15); Aspartate Amino Transferase 24 U/L (14-36); Blood Urea Nitrogen 10 mg/dl (7-17); Carbon Dioxide 29 mmol/L (22.0-30.0); Creatinine Clearance Estimated 130 mL/min (50-200); Creatinine,Serum 0.70 mg/dl (0.52-1.04); Estimated Glomerular Filt Rate 103 ml/min (>60); GFR (African American) 124 ML/MIN (>60)
[2025-04-17 18:30] LABS: Alkaline Phosphatase 73 U/L (38-126); Bilirubin,Total 0.3 mg/dl (0.2-1.3); Calcium 8.8 mg/dl (8.4-10.2); Glucose 94 mg/dl (74-100); Lipase 54 U/L (23-300); Magnesium 1.9 mg/dl (1.6-2.3); Total Protein,Serum 7.7 g/dl (6.3-8.2)
[2025-04-17 18:40] LABS: NT Pro Brain Natriuretic Pep. 52.4 pg/mL (0-125)
[2025-04-17 18:42] LABS: Bacteria,Urine 1+ /lpf
[2025-04-17 18:43] LABS: Troponin I < 0.01 ng/ml (0.00-0.034)
[2025-04-17 18:44] LABS: Strep Scrn Group A (Rapid) Negative (Negative)
[2025-04-17 19:11] LABS: Albumin Level 4.5 g/dl (3.5-5.0); Albumin/Globulin Ratio 1.4 (1.1-1.8); Globulin 3.2 g/dL (1.3-3.2)
[2025-04-17 19:19] LABS: Hepatitis C Ab Qual. W/ RFX NEGATIVE (Negative)
[2025-04-17 19:20] VITALS: BP 118/75; PULSE 56; RESP 20; TEMP 36.8; O2SAT 99
[2025-04-17 19:37] LABS: Coronavirus 19, PCR Detected (NotDetected)
== END 2025-04-17 19:21 | disposition home or self-care (01) ==
PROVIDERS: Physician Assistant; Emergency Provider Student in an Organized Health Care Education/Training Program; PCP Nurse Practitioner
DX: B34.9 Viral infection, unspecified (principal); N39.0 Urinary tract infection, site not specified
CPT/HCPCS: 71045; 80053; 81001; 81025; 83690; 83735; 83880; 84484; 85025; 86803; 87086; 87389; 87430; 87631; 93005; 96360; 99284; J7030